=== PATIENT | male | born 1935 | race Caucasian/White ===

== ENCOUNTER 2020-03-25 00:50 | Outpatient (CLI) | payer MEDICARE, SELFPAY ==
[2020-03-25 18:12] LABS: SARS-CoV-2 RNA PCR Negative
== END 2020-03-25 00:51 | disposition home or self-care (01) ==
LOC: ANHCOVIDDT 00:51
PROVIDERS: PCP Internal Medicine; Visit Provider Internal Medicine Gastroenterology
DX: Z01.812 Encounter for preprocedural laboratory examination (principal); Z20.828 Contact with and (suspected) exposure to other viral communicable diseases
CPT/HCPCS: 87635; C9803; U0003

== ENCOUNTER 2020-03-27 02:25 | Day surgery (SDC) | payer MEDICARE, SELFPAY ==
[2020-03-21 13:10] VITALS: BMI 42.7
[2020-03-27 07:55] VITALS: BP 136/68; PULSE 79; RESP 18; TEMP 36.3; O2SAT 99; BMI 42.7
[2020-03-27] MEDS: LACTATED RINGERS 1,000 ML 150 ML IV CONT (08:10)
--- NOTE | 2020-03-27 08:16 | WPDANESEPPF ---
Anes - Initial Pre Proc Eval Procedure: Operation Date: 03/27/20 08:30 Proposed Procedures p Colonoscopy - Kenn Burr MD Date/Time: 03/27/20 08:16 Surgeon: Kenn Burr MD Pre Op Diagnosis: ulcerative colitis, change in bowel habits Patient Data Age: 84 Gender: M Height: 1.78 m Weight: 135 kg Last Vital Signs Temp 36.3 C L 03/27/20 07:55 Pulse 79 03/27/20 07:55 Resp 18 03/27/20 07:55 BP 136/68 03/27/20 07:55 Pulse Ox 99 03/27/20 07:55 Allergies Allergy/AdvReac Type Severity Reaction Status Date / Time cephalexin Allergy Unknown Unknown Verified 03/27/20 07:51 Penicillins Allergy Unknown When he Verified 03/27/20 07:51 was younger. CEPHALEXIN MONOHYDRATE AdvReac Mild RASH Uncoded 03/27/20 07:51 Home Medications Medication Instructions Recorded Confirmed Type losartan 100 mg tablet 100 mg PO DAILY #90 tablet 07/03/19 03/27/20 Rx ascorbate calcium (vitamin C) 500 500 mg PO DAILY 07/27/19 03/27/20 History mg tablet cyanocobalamin (vitamin B-12) 500 500 mcg PO DAILY 07/27/19 03/27/20 History mcg lozenges multivitamin 1 tablet PO DAILY 07/27/19 03/27/20 History naproxen sodium 220 mg capsule 220 mg PO BID PRN 07/27/19 03/27/20 History dabigatran etexilate 150 mg capsule 150 mg PO BID #60 cap 10/18/19 03/27/20 Rx levothyroxine 112 mcg tablet 112 mcg PO DAILY #90 tablet 01/02/20 03/27/20 Rx atorvastatin 40 mg tablet See Rx Instructions .ROUTE 01/04/20 03/27/20 Rx .COMPLEX #90 tablet glipizide 5 mg tablet 5 mg PO DAILY #30 tablet 01/30/20 03/27/20 Rx metformin 1,000 mg tablet 1,000 mg PO BID #60 tablet 01/30/20 03/27/20 Rx sitagliptin-metformin [Janumet XR] 1 tablet PO DAILY 03/21/20 03/27/20 History sulfasalazine 1.5 g PO BID 03/21/20 03/27/20 History Patient hx anesthesia problems: none Family hx anesthesia problems: none [facility] Past Medical History Medical History (Updated 02/29/20 @ 14:30 by Carroll Wood APRN) [place] (actinic keratosis) Chronic atrial fibrillation, unspecified 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 Epistaxis, recurrent Essential hypertension 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 History of ulcerative colitis Hx of deep venous thrombosis Hypercholesteremia Hypersomnolence disorder, acute Hypothyroidism, unspecified IBD (inflammatory bowel disease) Lymphedema Mixed hyperlipidemia Morbid obesity On anticoagulant therapy 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 ALLEN (obstructive sleep apnea) Paroxysmal atrial fibrillation with rapid ventricular response Postoperative wound dehiscence Pyogenic granuloma Skin cancer screening Skin neoplasm Smoking Thoracic aortic aneurysm without rupture Type 2 diabetes mellitus without complication Ulcerative colitis with complication Ulcerative colitis without complications Urinary incontinence Surgical History Surgical History History of hip replacement History of repair of rotator cuff Social History Social History Smoking packs per day: 0.5 Smoking cigarettes per day: 10.0 Smoking status: Current every day smoker Tobacco type: cigarettes Alcohol intake: current Drinks per week: 3 Living arrangements: with family Spiritual care concerns: No Anes - Eval Final PreProcedure Day of Procedure 03/27/20 08:16 Patient weight: morbidly obese Heart: regular rate and rhythm Lungs: clear to auscultation and normal air movement Airway: Mallampati scale class III Neurological: alert and oriented Last oral intake: >/= 8 hours ASA classification: III Emergent: no Anesthetic plan: proceed Anesthesia type and monitoring: general GIVS and standard monitoring Informed Consent: The patient's anesthetic plan and its attendant risks and benefits were discussed with the patient/family/POA. Questions were solicited and answers provided to the satisfaction of the patient/family/POA.
[2020-03-27 08:19] LABS: Glucose Point of Care 153 (65-105)
--- NOTE | 2020-03-27 08:34 | WPDGICN ---
Assessment and Plan Assessment and plan (1) Ulcerative colitis: Code(s): K51.90 - Ulcerative colitis, unspecified, without complications Status: Acute Assessment and Plan: Patient has a longstanding history of ulcerative colitis. Stable on sulfasalazine. Plan is for surveillance colonoscopy now and consider this at intervals in the future. (2) History of colon polyps: Code(s): Z86.010 - Personal history of colonic polyps Status: Acute Assessment and Plan: Patient has a history of colon polyps most recently 2011. This will be evaluated by colonoscopy at this time. 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 Is taken because of his atrial fibrillation. Recent rectal bleeding was identified. Source of this will be evaluated at the time ofl colonoscopy. 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 Patient presents for colonoscopy. Patient has a long history of ulcerative colitis. [place] to be in clinical remission. He has an underlying history of atrial fibrillation on Eliquis. He has a history of adenomatous colon polyp removed from the colon in 2011. Recently has had difficulty with constipation and passed a small amount of bright red blood per rectum. For these reasons he presents for screening colonoscopy. High-fiber diet with laxatives as needed have been recommended. Family history is noncontributory. Patient has recent past medical history is significant for [place] cell cancer resected from his right arm. Pradaxa taken for atrial fibrillation will be held prior to the colonoscopy. 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 History of ulcerative colitis Hx of deep venous thrombosis Hypercholesteremia Hypersomnolence disorder, acute Hypothyroidism, unspecified IBD (inflammatory bowel disease) Lymphedema Mixed hyperlipidemia Morbid obesity On anticoagulant therapy On intermediate drug therapy ALLEN (obstructive sleep apnea) Paroxysmal atrial fibrillation with rapid ventricular response Postoperative wound dehiscence Pyogenic granuloma Skin cancer screening Skin neoplasm Smoking Thoracic aortic aneurysm without rupture Type 2 diabetes mellitus without complication Ulcerative colitis with complication Ulcerative colitis without complications Urinary incontinence Surgical History Surgical History History of hip replacement History of repair of rotator cuff Social History Social History Smoking packs per day: 0.5 Smoking cigarettes per day: 10.0 Smoking status: Current every day smoker Tobacco type: cigarettes Alcohol intake: current Drinks per week: 3 Living arrangements: with family Spiritual care concerns: No Meds Home Medications and Allergies Home Medications Medication Instructions Recorded Confirmed Type losartan 100 mg tablet 100 mg PO DAILY #90 tablet 07/03/19 03/27/20 Rx ascorbate calcium (vitamin C) 500 500 mg PO DAILY 07/27/19 03/27/20 History mg table
[2020-03-27 09:08] VITALS: BP 112/62; PULSE 69; RESP 18; O2SAT 96
[2020-03-27 09:18] VITALS: BP 126/63; PULSE 73; RESP 17; O2SAT 100
[2020-03-27 09:28] VITALS: BP 129/69; PULSE 68; RESP 17; O2SAT 100
== END 2020-03-27 09:51 | disposition home or self-care (01) ==
PROVIDERS: PCP Internal Medicine; Visit Provider Internal Medicine Gastroenterology
PROC: 0DJD8ZZ Inspection of Lower Intestinal Tract, Via Natural or Artificial Opening Endoscopic (ICD-10-PCS; CPT 45378; principal; 2020-03-27 08:30)
DX: Z12.11 Encounter for screening for malignant neoplasm of colon (principal); K51.90 Ulcerative colitis, unspecified, without complications; I48.20 Chronic atrial fibrillation, unspecified; L57.0 Actinic keratosis; I10 Essential (primary) hypertension; E78.00 Pure hypercholesterolemia, unspecified; E03.9 Hypothyroidism, unspecified; E78.2 Mixed hyperlipidemia; E66.01 Morbid (severe) obesity due to excess calories; Z68.41 Body mass index [BMI] 40.0-44.9, adult; G47.33 Obstructive sleep apnea (adult) (pediatric); F17.210 Nicotine dependence, cigarettes, uncomplicated; I71.2 Thoracic aortic aneurysm, without rupture; E11.9 Type 2 diabetes mellitus without complications; R32 Unspecified urinary incontinence; K51.40 Inflammatory polyps of colon without complications; K64.8 Other hemorrhoids; Z79.899 Other long term (current) drug therapy; Z79.01 Long term (current) use of anticoagulants; Z86.010 Personal history of colon polyps; Z85.821 Personal history of Merkel cell carcinoma
CPT/HCPCS: 45385; 45380; 88305; J2704; J7120

== ENCOUNTER 2020-09-16 08:30 | Inpatient (IN) | payer MEDICARE, SELFPAY ==
[2020-09-16] VITALS (46 sets, daily range): BP systolic 107–149; BP diastolic 45–97; PULSE 66–102; RESP 10–21; TEMP 35.8–37.3; O2SAT 93–100; BMI 39.5
--- NOTE | ~2020-09-16 | US_ITS ---
US abdomen limited INDICATION: Elevated liver function tests PROCEDURE: Realtime right upper abdominal ultrasound. COMPARISON: Pet/CT scan dated 08/16/2018 FINDINGS: The pancreas is normal without focal mass or pancreatic ductal dilation. Liver echotexture is increased, consistent with hepatic steatosis. There is normal directional flow in the portal vei n. The gallbladder is normal without stones, gallbladder wall thickening or pericholecystic fluid. Comm on bile duct measures 4 mm. No sonographic Arguelles's sign. IMPRESSION: 1: Hepatic steatosis. Reviewed, dictated and finalized at location B. IMPRESSION: 1: Hepatic steatosis.
--- NOTE | ~2020-09-16 | XR_ITS ---
XR chest 2V 09/16/2020 09:15 Indication: Shortness of breath Procedure: 2 view chest Comparison: No prior studies for comparison. Findings: Heart size normal. Bibasilar infiltrates. No pleural effusion or pneumothorax. No acute oss eous abnormality. Mild atherosclerosis of the aorta. Impression: 1: Bibasilar infiltrates which may represent atelectasis or developing pneumonia. Reviewed, dictated and finalized at location B. Impression: 1: Bibasilar infiltrates which may represent atelectasis or developing pneumoni a.
--- NOTE | 2020-09-16 08:43 | ECG_ITS ---
Measurements Intervals [place] Rate: 86 P: OR: 0 QRS: 59 QRSD: 111 T: -15 QT: 355 QTc: 426 Interpretive Statements ATRIAL FIBRILLATION INCOMPLETE RIGHT BUNDLE BRANCH BLOCK NONSPECIFIC ST & T-WAVE ABNORMALITY- DIFFUSE LEADS BASELINE ARTIFACT- I, V4-V5 ABNORMAL ECG Electronically Signed On 09-16-2020 9:08:11 CDT by Mc Atkinson D.O.
[2020-09-16 09:01] LABS: Basophils Percent Auto 0.5 % (0.2-1.2); Eosinophils Percent Auto 0.4 % (0-4.4); Immature Granulocyte Percent A 1.2 % (0-0.5); Lymphocytes Percent Auto 11.7 % (18.3-44.2); Mean Corpuscular HGB Conc 29.2 g/dl (32-36); Mean Corpuscular Hemoglobin 20.4 pg (26-34); Mean Corpuscular Volume 69.7 fl (80-100); Mean Platelet Volume 9.4 fl (7.4-10.4); Monocytes Absolute Auto 1.1 K/mm3 (0.1-0.6); Monocytes Percent Auto 12.4 % (2.6-8.5); Neutrophils Absolute Auto 6.3 K/mm3 (1.3-6.7); Neutrophils Percent Auto 73.8 % (45.5-73.1); Nucleated Red Blood Cells Perc 0.5 % (0.0-0.2); Platelet Count Result 307 k/mm3 (150-375); Red Blood Count 2.21 M/mm3 (4.6-6.20); Red Cell Distribution Width 17.3 % (11.5-14.5); White Blood Count 8.6 K/mm3 (4.5-10.0)
[2020-09-16 09:09] LABS: Hemoglobin 4.5 g/dL (14.0-18.0)
[2020-09-16 09:10] LABS: Hematocrit 15.4 % (42.0-52.0); Hypochromasia 3+ (NORMAL); Ovalocytes 1+ (NORMAL); Platelet Estimate Adequate (Adequate)
[2020-09-16 09:12] LABS: Potassium 3.9 mmol/L (3.4-5.0)
[2020-09-16 09:15] LABS: Anion Gap 9 mmol/L (8-16); Blood Urea Nitrogen 21 mg/dL (9-20); Calcium 7.9 mg/dL (8.4-10.2); Carbon Dioxide 21 mmol/L (22-30); Chloride 98 mmol/L (98-107); Estimated CRCL calculation 66 ml/min; Estimated Glomerular Filt Rate > 60; Glucose 207 mg/dL (75-110); Sodium 128 mmol/L (137-145)
[2020-09-16 09:27] LABS: Alanine Aminotransferase 54 U/L (4-50); Albumin Level 3.5 g/dL (3.5-5.1); Alkaline Phosphatase 72 U/L (38-126); Aspartate Amino Transferase 87 U/L (17-59); Bilirubin,Total 0.3 mg/dL (0.2-1.3)
[2020-09-16 09:39] LABS: NT Pro B Type Natriuretic Pept 1390 PG/ML (5-100); Troponin I 0.021 ng/mL (0.000-0.034)
--- NOTE | 2020-09-16 10:53 | ED.SOB ---
HPI - SOB/Dyspnea General Chief Complaint: Shortness of Breath/Dyspnea Stated Complaint: SOB X2WKS Time Seen by Provider: 09/16/20 08:54 Source: patient Mode of arrival: ambulatory Limitations: no limitations History of Present Illness HPI Narrative: 85-year-old male Complains of increasing shortness of breath for a month or so which has been getting a lot worse for the last 2 weeks Primarily an issue with exertion but also while at rest He saw his doctor about 2-1/2 weeks ago and had some office labs done which all looked fairly good per the patient; it does not look like a CBC was among them though Notably patient has a history of atrial fibrillation and takes Pradaxa for that. Unfortunately he also has a history of ulcerative colitis. He denies any history of melena, however when asked he does think that he may have had some rust colored possibly bloody stools. He does not have any abdominal pain. Related Data Home Medications Medication Instructions Recorded Confirmed ascorbate calcium (vitamin C) 500 500 mg PO DAILY 07/27/19 09/09/20 mg tablet cyanocobalamin (vitamin B-12) 500 500 mcg PO DAILY 07/27/19 09/09/20 mcg lozenges multivitamin 1 tablet PO DAILY 07/27/19 09/09/20 naproxen sodium 220 mg capsule 220 mg PO BID PRN 07/27/19 09/09/20 sitagliptin-metformin [Janumet XR] 1 tablet PO DAILY 03/21/20 09/09/20 magnesium-potassium 40 mg-40 mg cap PO 07/02/20 09/09/20 capsule furosemide 40 mg tablet 20 mg PO QAM 09/09/20 09/09/20 atorvastatin 09/16/20 potassium chloride meq PO 09/16/20 Allergies Allergy/AdvReac Type Severity Reaction Status Date / Time cephalexin Allergy Unknown rash Verified 09/16/20 08:52 Penicillins Allergy Unknown When he Verified 09/16/20 08:52 was younger. Review of Systems Review of Systems: All systems reviewed & are unremarkable except as noted in HPI and below Constitutional: Constitutional: Denies chills, Reports fatigue, Denies fever(s), Denies headache(s) and Reports weakness Eyes: Eyes: Reports no additional eye complaints and Denies change in vision ENT: Denies headache(s), Denies epistaxis, Denies nasal congestion and Denies sore throat Cardiovascular: Cardiovascular: Denies chest pain, Denies rapid heart rate, Denies leg edema, Denies palpitations and Denies dyspnea Respiratory: Respiratory: Reports as per HPI, Denies cough, Denies dyspnea and Denies wheezing Gastrointestinal: Gastrointestinal: Denies abdominal pain, Denies diarrhea, Denies nausea and Denies vomiting Comments: Positive for blood in stool Genitourinary: Genitourinary: Denies hematuria, Denies dysuria and Denies urinary frequency Musculoskeletal: Musculoskeletal: Denies deformity, Denies arthralgias, Reports joint swelling, Denies muscle weakness and Denies numbness Comments: Chronic edema longstanding Integumentary/Breasts: Skin/Breast: Denies rash and Denies wounds Neurologic: Denies headache(s), Denies focal weakness, Denies numbness and Denies weakness Psychiatric: Psychiatric: Reports no additional psychiatric complaints Endocrine: Endocrine: Denies fatigue and Denies palpitations Hematologic/Lymphatic: Hematologic/Lymphatic: Denies easy bleeding and Denies easy bruising [facility] Past Medical History Medical History [place] (actinic keratosis) Chronic atrial fibrillation, unspecified 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
[2020-09-16] MEDS: SODIUM CHLORIDE 0.9% IV 250 ML 30 ML IV CONT ×2 (11:25→19:07)
[2020-09-16] MEDS: TUBING, BLOOD PLUM PUMP TUBING 1 EACH XX ×2 (11:25→19:08)
--- NOTE | 2020-09-16 11:27 | PC.NURSE ---
prbc unit # 1 started via pump at 1125
[2020-09-16 11:41] LABS: Hematocrit 14.8 % (42.0-52.0); Hemoglobin 4.4 g/dL (14.0-18.0)
--- NOTE | 2020-09-16 13:09 | ADMGEN ---
This patient, Kole Méndez, was admitted to 3 [facility] Surg Room 331-01. Patient/family oriented to hospital policies and general routines including ID bracelet, bed and alarms, visiting hours, pain management, procedures, bathroom and other care routines, personal items, smoking policy, room service/diet, and visiting hours. Information on how to activate the Rapid Response Team has been discussed. Patient/Family are encouraged to report perceived risks to care and to ask questions if they do not understand what they are told or what they should do.
--- NOTE | 2020-09-16 14:14 | PM.IMHP ---
H&P: HPI History of Present Illness Date/Time: 09/16/20 14:14 this is a 85-year-old male patient has a past medical history. Small atrial fibrillation. The patient is on Pradaxa. The patient also has a history of congestive heart failure. The patient stated that he does have swelling to his lower extremities but is not any worse than normal. Room with her in a month or so. But has been getting the worse the last 2 weeks. The patient has been walking with a cane. His shortness of breath is with exertion as well as at rest. The patient stated that he noted that he has had darker stools but they were exactly black. The patient stated that he followed up with his primary care doctor about 2 and half weeks ago. He has a history of ulcerative colitis. The patient stated that he sees Dr. greenfield for all of his colonoscopies. The patient stated that he had a colonoscopy approximately 1 year ago and was found have some polyps. He had a polypectomy at that time. Who is also told that he had some internal hemorrhoids as wall that tended bleed at times. Performed a nasal his primary care doctor couple weeks ago. Your not in her system but the patient reported that they were okay at that time. Today's hemoglobin is 4.4. Patient's Hemoccult was positive in the emergency room. GI has been consulted. The patient is tolerating his clear liquid diet well. May represent atelectasis or developing pneumonia. Patient has no fever chills. He has not had any contacts with covid 19 infection. The patient was swabbed for COVID-19. The patient is receiving a blood transfusion at this time. H&H is 4.4 and 14.8, the patient was admitted to inpatient on the date of service of 09/17/2019 Chief Complaint: Shortness of breath Review of Systems Review of Systems: All systems reviewed & are unremarkable except as noted in HPI and below Constitutional: Constitutional: Reports as per HPI and Reports no additional constitutional complaints Eyes: Eyes: Reports as per HPI and Reports no additional eye complaints ENT: Reports system reviewed and no additional complaints, except as documented and Reports Normal hearing present Cardiovascular: Cardiovascular: Reports no additional cardiovascular complaints Respiratory: Respiratory: Reports no additional respiratory complaints and Reports no additional respiratory complaints Gastrointestinal: Gastrointestinal: Reports as per HPI and Reports no additional gastrointestinal complaints Musculoskeletal: Musculoskeletal: Reports no additional musculoskeletal complaints Integumentary/Breasts: Skin/Breast: Reports system reviewed and no additional complaints, except as docu and Reports as per HPI Neurologic: Reports system reviewed and no additional complaints, except as documented, Reports as per HPI and Reports Normal hearing present Psychiatric: Psychiatric: Reports no additional psychiatric complaints and Reports as per HPI Endocrine: Endocrine: Reports no additional endocrine complaints Hematologic/Lymphatic: Hematologic/Lymphatic: Reports no additional hematologic/lymphatic complaints Allergic/Immunologic: Allergic/Immunologic: Reports no additional allergic/immunologic complaints [facility] Past Medical History Medical History (Updated 09/16/20 @ 14:32 by Reema Mayorga NP) AK (actinic keratosis) Chronic atrial fibrillation, unspecified 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
[2020-09-16] MEDS: PANTOPRAZOLE SODIUM IV 40 MG VIAL IV PUSH ×2 (15:10→23:38)
[2020-09-16] MEDS: SODIUM CHLORIDE 0.9% IV 1,000 ML 125 ML IV CONT (17:25)
[2020-09-16 17:42] LABS: Glucose Point of Care 170 (65-105)
--- NOTE | 2020-09-16 18:00 | WPDGICN ---
Assessment and Plan Assessment and plan (1) GI bleed: Code(s): K92.2 - Gastrointestinal hemorrhage, unspecified Status: Acute Assessment and Plan: admitted to hospital, he is getting blood transfusion egd and colonoscopy tomorrow to assess source of bleeding (colonoscopy last year with normal random colon bx, also had inflammatory polyps due to UC) (2) Acute blood loss anemia: Code(s): D62 - Acute posthemorrhagic anemia Status: Acute Assessment and Plan: getting blood transfusion trend h/h and hold blood thinners (3) Ulcerative colitis: Code(s): K51.90 - Ulcerative colitis, unspecified, without complications Status: Acute Assessment and Plan: on sulfasalazine, on remission but longstanding history he is seeing Dr Burr (4) Edema of both legs: Code(s): R60.0 - Localized edema Status: Acute Assessment and Plan: chronic (5) On anticoagulant therapy: Code(s): Z79.01 - custodial (current) use of anticoagulants Status: Acute Assessment and Plan: on hold now (6) Chronic atrial fibrillation, unspecified: Code(s): I48.20 - Chronic atrial fibrillation, unspecified Status: Acute GI Consult Note Consult date/time: 09/16/20 18:00 Reason for consult: gib, symptomatic anemia HPI: Kole Méndez is a 85 year old male with history of DVT, afib on Pradaxa for a few years, congestive heart failure, UC for over [address] Burr with last colonoscopy 03/2020 with inflammatory polyps but random colon mucosa normal (on remission), patient is using sulfasalazine, never used biologics. He says that lately has been constipated using miralax and last 3 weeks noted blood in stools with dark appearance, also more shortness of breath than usual on exertion but at rest as well as at rest. CXR showed atelectasis or developing pneumonia, no fever chills, he was swabbed for COVID-19 (already received first dose of vaccine) and now is receiving a blood transfusion at this time. H&H is 4.4 and 14.8. Review of Systems Constitutional: Constitutional: Reports fatigue Eyes: Eyes: Denies blurry vision ENT: Reports Normal hearing present Cardiovascular: Cardiovascular: Denies chest pain Respiratory: Respiratory: Reports dyspnea on exertion Gastrointestinal: Gastrointestinal: Denies abdominal pain, Reports melena and Reports hematochezia Genitourinary: Genitourinary: Denies dysuria Musculoskeletal: Musculoskeletal: Denies neck pain Integumentary/Breasts: Comments: chronic venous stasis legs Neurologic: Denies headache(s) Psychiatric: Psychiatric: Denies anxiety [facility] Past Medical History Medical History (Updated 09/16/20 @ 18:06 by Devyn Mahoney MD) Acute blood loss anemia [place] (actinic keratosis) Chronic atrial fibrillation, unspecified 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 Epistaxis, recurrent Essential hypertension 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 History of ulcerative colitis Hx of deep venous thrombosis Hypercholesteremia Hypersomnolence disorder, acute Hypothyroidism, unspecified IBD (inflammatory bowel disease) Lymphedema Mixed hyperlipidemia Morbid obesity On anticoagulant therapy On halfway drug therapy ALLEN (obstructive sleep apnea) Intolerant to CPAP Paroxysmal atrial fibrillation with rapid ventricular response Postoperative wound dehiscence Pyogenic granuloma Skin cancer screening Skin neoplasm Smoking Thoracic aortic aneurysm without rupture Type 2 diabetes mellitus without complication Ulcerative colitis with complication Ulcerative colitis without complications Urinary incontinence Surgical History Surgical History (Updated 09/16/20 @ 14:36 by Reema Mayorga NP) H/O colonoscopy with polypectomy History of hip replacement On the right History of repair of rotator cuff On the left Family History Family History (Reviewed 09/16/20 @ 13:11 by Lexis
[2020-09-16 18:04] LABS: Hematocrit 19.2 % (42.0-52.0)
[2020-09-16] MEDS: sulfaSALAzine 500 MG TABLET 1500 MG PO (19:07)
[2020-09-16] MEDS: polyethylene glycoL 3350 238 GM BOTTLE PO (19:08)
[2020-09-16] MEDS: BISACODYL 5 MG TABLET EC 20 MG PO (19:08)
[2020-09-16 20:04] LABS: Glucose Point of Care 127 (65-105)
[2020-09-16 20:13] LABS: SARS-CoV-2 RNA PCR Negative
[2020-09-16] MEDS: ONDANSETRON INJ 4 MG/2 ML VIAL IV PUSH (20:19)
[2020-09-16] MEDS: MELATONIN 5 MG TABLET PO (21:40)
[2020-09-16 21:59] LABS: Glucose Point of Care 162 (65-105)
[2020-09-17] VITALS (16 sets, daily range): BP systolic 107–147; BP diastolic 56–93; PULSE 53–83; RESP 16–20; TEMP 35.9–37.1; O2SAT 94–100; BMI 39.5
[2020-09-17 00:51] LABS: Hematocrit 21.8 % (42.0-52.0); Hemoglobin 7.1 g/dL (14.0-18.0)
[2020-09-17] MEDS: MAGNESIUM CITRATE 300 ML BTL 150 ML PO (04:32)
[2020-09-17 06:05] LABS: Basophils Absolute Auto 0.1 K/mm3 (0.0-0.1); Basophils Percent Auto 0.7 % (0.2-1.2); Eosinophils Absolute Auto 0.1 K/mm3 (0-0.3); Hematocrit 22.5 % (42.0-52.0); Hemoglobin 7.1 g/dL (14.0-18.0); Immature Granulocyte Percent A 1.4 % (0-0.5); Lymphocytes Absolute Auto 0.74 K/mm3 (0.9-3.2); Lymphocytes Percent Auto 10.3 % (18.3-44.2); Mean Corpuscular HGB Conc 31.6 g/dl (32-36); Mean Corpuscular Hemoglobin 23.5 pg (26-34); Mean Corpuscular Volume 74.5 fl (80-100); Monocytes Absolute Auto 0.8 K/mm3 (0.1-0.6); Monocytes Percent Auto 11.7 % (2.6-8.5); Neutrophils Absolute Auto 5.4 K/mm3 (1.3-6.7); Neutrophils Percent Auto 74.9 % (45.5-73.1); Nucleated Red Blood Cells Absolute Auto 0.1 K/mm3 (0.0-0.012); Nucleated Red Blood Cells Perc 0.7 % (0.0-0.2); Platelet Count Result 201 k/mm3 (150-375); Red Blood Count 3.02 M/mm3 (4.6-6.20); Red Cell Distribution Width 19.1 % (11.5-14.5); White Blood Count 7.2 K/mm3 (4.5-10.0)
[2020-09-17] MEDS: SODIUM CHLORIDE 0.9% IV 1,000 ML 125 ML IV CONT ×2 (06:15→20:45)
[2020-09-17 06:19] LABS: Alanine Aminotransferase 55 U/L (4-50); Alkaline Phosphatase 59 U/L (38-126); Anion Gap 4 mmol/L (8-16); Aspartate Amino Transferase 89 U/L (17-59); Bilirubin,Total 0.5 mg/dL (0.2-1.3); Blood Urea Nitrogen 14 mg/dL (9-20); Calcium 7.3 mg/dL (8.4-10.2); Carbon Dioxide 23 mmol/L (22-30); Chloride 103 mmol/L (98-107); Estimated CRCL calculation 81 ml/min; Estimated Glomerular Filt Rate > 60; Glucose 112 mg/dL (75-110); Magnesium 1.5 mg/dL (1.6-2.3); Potassium 3.8 mmol/L (3.4-5.0); Sodium 130 mmol/L (137-145)
[2020-09-17] MEDS: MAGNESIUM SULF 2 GM/WATER 50ML 2 GM/50 ML BAG IVPB (08:08)
[2020-09-17] MEDS: PANTOPRAZOLE SODIUM IV 40 MG VIAL IV PUSH ×2 (08:08→20:43)
[2020-09-17 08:31] LABS: Glucose Point of Care 128 (65-105)
--- NOTE | 2020-09-17 10:56 | PM.IMPN ---
Progress Note: A&P Assessment and Plan (1) Acute lower gastrointestinal bleeding: Code(s): K92.2 - Gastrointestinal hemorrhage, unspecified Status: Acute Assessment and Plan: Pt has received 5 units of blood thus far in total -hgb this morning was 7.1 and one additional unit was ordered -No signs or symptoms of blood loss -suspect GI source, await results of colonscopy and egd -no anemia labs were done prior to the 5 units, may not be accurate now (2) Edema of both legs: Code(s): R60.0 - Localized edema Status: Acute Assessment and Plan: Chronic and unchanged -monitor (3) Ulcerative colitis: Code(s): K51.90 - Ulcerative colitis, unspecified, without complications Status: Acute Assessment and Plan: Hx of UC -GI consulted (4) Tobacco abuse: Code(s): Z72.0 - Tobacco use Status: Acute (5) Mixed hyperlipidemia: Code(s): E78.2 - Mixed hyperlipidemia Status: Acute Assessment and Plan: Continue with atorvastatin (6) ALLEN (obstructive sleep apnea): Code(s): G47.33 - Obstructive sleep apnea (adult) (pediatric) Status: Acute Assessment and Plan: The patient is intolerant of CPAP (7) Essential hypertension: Code(s): I10 - Essential (primary) hypertension Status: Acute Assessment and Plan: Continue with home medication. (8) Chronic atrial fibrillation, unspecified: Code(s): I48.20 - Chronic atrial fibrillation, unspecified Status: Acute Assessment and Plan: Last heart rate 59 -I do not see any rate-controlling medications -Hold Pradaxa secondary to above (9) Type 2 diabetes mellitus without complication: Qualifiers: Diabetes mellitus snf insulin use: without snf use Qualified Code(s): E11.9 - Type 2 diabetes mellitus without complications Code(s): E11.9 - Type 2 diabetes mellitus without complications Status: Acute Assessment and Plan: Last glucose 128 -A1c, 7.4 -hold home Janumet -Continue SSI (10) Acute blood loss anemia: Code(s): D62 - Acute posthemorrhagic anemia Status: Acute Assessment and Plan: As above Additional Plan Pt states he has had lump on his right arm for about 5 days that is painful at times. 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 He is going to follow up with his pcp to get this imagined if it does not go away in a few weeks. At that time they can decide if it needs to be removed Time Spent With Patient Time with patient: 25 - 35 minutes Subjective Date/time seen: 09/17/20 10:56 Interval history: Pt is a 85-year-old male here for anemia. Patient was seen today and states he is feeling better than yesterday. He reports no shortness of breath at rest but does feel short of breath when he is up and walking. He has not walked much since he has been in the hospital. Is he did not sleep well yesterday but overall doing okay. He denies lightheadedness, dizziness, chest pain, shortness of breath at rest, fevers, or cough. He states he is unsure what his usual heart rate is. Now or in the past. No history of liver issues. Review of Systems Review of Systems: All systems reviewed & are unremarkable except as noted in HPI and below Exam Narrative: Exam Narrative: General: Well developed well nourished patient in NAD HEENT: normocephalic Neck: supple Neuro: Alert and oriented x4 CV:Bradycardic without murmurs. HR currently 57 but did drop to 47 on tele. occasional PVCs Resp:CTA Abd: Soft, non distended. No pain to palpation. Positive bowel sounds Extremities: chronic venous stasis in both legs. right arm with a small lipoma like nodule no erythema. Objective Data Vital Signs Vital Signs: Vital Signs - 24 hr 09/16/20 11:00 09/16/20 11:01 09/16/20 11:15 Temperature Pulse Rate 73 73 73 Respirat
[2020-09-17 11:35] LABS: Glucose Point of Care 134 (65-105)
--- NOTE | 2020-09-17 12:55 | PCNSR ---
On 09/17/20, the student, Raegan Owens, provided care and completed [facility] documentation on this patient. I have reviewed the student's documentation and agree with the findings.
--- NOTE | 2020-09-17 13:30 | PC.NURSE ---
Patient to GI lab per wheelchair.
[2020-09-17 13:48] LABS: Glucose Point of Care 118 (65-105)
--- NOTE | 2020-09-17 13:50 | WPDANESEPPF ---
Anes - Initial Pre Proc Eval Procedure: Operation Date: 09/17/20 15:30 Proposed Procedures p Esophagogastroduodenoscopy & Colonoscopy - Devyn Mahoney MD Date/Time: 09/17/20 13:50 Surgeon: Olivia Garcia MD Pre Op Diagnosis: Lower GI bleed/anemia Patient Data Age: 85 Gender: M Height: 5 ft 10 in Weight: 125 kg Last Vital Signs vitals incorrect resp 16,sat98,pulse 73 Temp 36.6 C 09/17/20 13:18 Pulse 16 L 09/17/20 13:18 Resp 98 H 09/17/20 13:18 BP 117/70 09/17/20 13:18 Pulse Ox 73 L 09/17/20 13:18 Allergies Allergy/AdvReac Type Severity Reaction Status Date / Time cephalexin Allergy Unknown rash Verified 09/16/20 13:22 Penicillins Allergy Unknown When he Verified 09/16/20 13:22 was younger. Home Medications Medication Instructions Recorded Confirmed Type ascorbate calcium (vitamin C) 500 500 mg PO DAILY 07/27/19 09/16/20 History mg tablet cyanocobalamin (vitamin B-12) 500 500 mcg PO DAILY 07/27/19 09/16/20 History mcg lozenges multivitamin 1 tablet PO DAILY 07/27/19 09/16/20 History naproxen sodium 220 mg capsule 220 mg PO BID PRN 07/27/19 09/16/20 History sitagliptin-metformin [Janumet XR] 1 tablet PO DAILY 03/21/20 09/16/20 History dabigatran etexilate 150 mg capsule 150 mg PO BID #60 cap 04/08/20 09/16/20 Rx losartan 100 mg tablet 100 mg PO DAILY #90 tablet 04/08/20 09/16/20 Rx levothyroxine 112 mcg tablet See Rx Instructions .ROUTE 07/01/20 09/16/20 Rx .COMPLEX #90 tablet furosemide 40 mg tablet 40 mg PO QAM 09/09/20 09/16/20 History atorvastatin 40 mg PO DAILY 09/16/20 09/16/20 History potassium 40 meq PO DAILY 09/16/20 09/16/20 History sulfasalazine 1.5 g PO BID 09/16/20 09/16/20 History Laboratory Tests 09/16/20 09/16/20 09/16/20 09:38 11:09 11:32 WBC RBC Hgb Hct MCV MCH MCHC RDW Plt Count MPV Immature Gran % (Auto) Neut % (Auto) Lymph % (Auto) Ballard % (Auto) Eos % (Auto) Baso % (Auto) Lymph # (Auto) Ballard # (Auto) Eos # (Auto) Baso # (Auto) Abs Immat Gran (auto) Absolute Neuts (auto) Absolute Nucleated RBC Nucleated RBC % Sodium Potassium Chloride Carbon Dioxide Anion Gap BUN Creatinine Estim Creat Clear Calc Estimated GFR Glucose POC Capillary Glucose Hemoglobin A1c Cancelled Calcium Magnesium Total Bilirubin AST ALT Alkaline Phosphatase Total Protein Albumin TSH (Reflex) SARS-CoV-2 RNA (RT-PCR) Negative Ref Lab Test Name Ref Lab Test Result Blood Type O Positive Antibody Screen Negative Crossmatch See Detail 09/16/20 09/16/20 09/16/20 11:32 12:58 17:28 WBC RBC Hgb Hct MCV MCH MCHC RDW Plt Count MPV Immature Gran % (Auto) Neut % (Auto) Lymph % (Auto) Ballard % (Auto) Eos % (Auto) Baso % (Auto) Lymph # (Auto) Ballard # (Auto) Eos # (Auto) Baso # (Auto) Abs Immat Gran (auto) Absolute Neuts (auto) Absolute Nucleated RBC Nucleated RBC % Sodium Potassium Chloride Carbon Dioxide Anion Gap BUN Creatinine Estim Creat Clear Calc Estimat
[2020-09-17] MEDS: LACTATED RINGERS 1,000 ML 150 ML IV CONT (13:58)
--- NOTE | 2020-09-17 14:16 | PCPTNOTE ---
Attempted PT eval. Pt gone to GI lab. Will try again tomorrow.
--- NOTE | 2020-09-17 15:22 | PC.NURSE ---
Patient returned from GI lab per stretcher.
[2020-09-17] MEDS: ASCORBIC ACID 500 MG TABLET PO (15:34)
[2020-09-17] MEDS: ATORVASTATIN 40 MG TABLET PO (15:34)
[2020-09-17] MEDS: MULTIVITAMINS THERAPEUTIC TAB (*BKC) 1 TABLET PO (15:34)
[2020-09-17] MEDS: LOSARTAN POTASSIUM 100 MG TABLET PO (15:34)
[2020-09-17] MEDS: POTASSIUM CHLORIDE 20 MEQ TABLET 40 MEQ PO (15:34)
[2020-09-17] MEDS: CYANOCOBALAMIN 500 MCG TABLET PO (15:35)
[2020-09-17] MEDS: FUROSEMIDE 40 MG TABLET PO (15:35)
[2020-09-17 15:55] LABS: Hematocrit 28.9 % (42.0-52.0)
[2020-09-17] MEDS: sulfaSALAzine 500 MG TABLET 1500 MG PO (16:38)
[2020-09-17 16:51] LABS: Glucose Point of Care 131 (65-105)
[2020-09-17] MEDS: MELATONIN 5 MG TABLET PO (20:43)
[2020-09-17 22:29] LABS: Glucose Point of Care 161 (65-105)
[2020-09-18] VITALS: PULSE 79
[2020-09-18 04:00] VITALS: PULSE 70
[2020-09-18] MEDS: LEVOTHYROXINE SODIUM 112 MCG TABLET BY MOUTH (05:03)
[2020-09-18] MEDS: SODIUM CHLORIDE 0.9% IV 1,000 ML 125 ML IV CONT (05:04)
[2020-09-18 06:00] VITALS: BP 127/83; PULSE 83; RESP 18; TEMP 36.8; O2SAT 99
[2020-09-18 06:50] LABS: Hematocrit 26.3 % (42.0-52.0); Hemoglobin 8.2 g/dL (14.0-18.0); Mean Corpuscular HGB Conc 31.2 g/dl (32-36); Mean Corpuscular Hemoglobin 24.3 pg (26-34); Mean Platelet Volume 9.4 fl (7.4-10.4); Platelet Count Result 179 k/mm3 (150-375); Red Blood Count 3.37 M/mm3 (4.6-6.20); Red Cell Distribution Width 19.4 % (11.5-14.5); White Blood Count 8.3 K/mm3 (4.5-10.0)
[2020-09-18 07:07] LABS: Alanine Aminotransferase 52 U/L (4-50); Albumin Level 2.9 g/dL (3.5-5.1); Alkaline Phosphatase 62 U/L (38-126); Anion Gap 3 mmol/L (8-16); Aspartate Amino Transferase 80 U/L (17-59); Bilirubin Direct 0.3 mg/dL (0-0.3); Bilirubin,Total 0.3 mg/dL (0.2-1.3); Blood Urea Nitrogen 13 mg/dL (9-20); Calcium 7.3 mg/dL (8.4-10.2); Carbon Dioxide 25 mmol/L (22-30); Chloride 104 mmol/L (98-107); Estimated CRCL calculation 81 ml/min; Estimated Glomerular Filt Rate > 60; Glucose 118 mg/dL (75-110); Magnesium 1.8 mg/dL (1.6-2.3); Potassium 4.6 mmol/L (3.4-5.0); Sodium 132 mmol/L (137-145)
[2020-09-18 07:37] LABS: Hepatitis B Surface Antigen Negative (Negative)
[2020-09-18 07:42] LABS: HAV RESULT Negative (Negative); Hepatitis B Core IgM Result Negative (Negative)
[2020-09-18 07:54] LABS: Hepatitis C Virus Antibody Negative (Negative)
[2020-09-18 08:01] LABS: Glucose Point of Care 130 (65-105)
--- NOTE | 2020-09-18 08:10 | WPDANESPN ---
Anes - Prog Note Post-Op Date/Time: 09/18/20 08:10 Cardiovascular status: normal Respiratory status: normal Airway patency: baseline Mental status: baseline Post-Op hydration status: normal Vital Signs: Last Vital Signs Temp 36.8 C 09/18/20 06:00 Pulse 83 09/18/20 06:00 Resp 18 09/18/20 06:00 BP 127/83 09/18/20 06:00 Pulse Ox 99 09/18/20 06:00 Pain Score (VAS): 0/10. Patient resting in bed at time of assessment, appears comfortable. Pt. discussed discomfort on left buttock, RN aware. I/O: Intake & Output 09/17/20 09/18/20 09/18/20 23:59 07:59 15:59 Intake Total 1630 1200 Output Total 750 1200 Balance 880 0 Laboratory Tests 09/18/20 06:00 09/18/20 06:00 09/16/20 09/17/20 09/17/20 09:38 08:13 11:23 WBC RBC Hgb Hct MCV MCH MCHC RDW Plt Count MPV Sodium Potassium Chloride Carbon Dioxide Anion Gap BUN Creatinine Estim Creat Clear Calc Estimated GFR Glucose POC Capillary Glucose 128 H 134 H Calcium Magnesium Total Bilirubin Direct Bilirubin AST ALT Alkaline Phosphatase Total Protein Albumin Hepatitis A IgM Ab Hep Bs Antigen Hep B Core IgM Ab Hepatitis C Ab Screen Blood Type O Positive Antibody Screen Negative Crossmatch See Detail 09/17/20 09/17/20 09/17/20 13:39 15:38 16:39 WBC RBC Hgb 9.0 L Hct 28.9 L MCV MCH MCHC RDW Plt Count MPV Sodium Potassium Chloride Carbon Dioxide Anion Gap BUN Creatinine Estim Creat Clear Calc Estimated GFR Glucose POC Capillary Glucose 118 H 131 H Calcium Magnesium Total Bilirubin Direct Bilirubin AST ALT Alkaline Phosphatase Total Protein Albumin Hepatitis A IgM Ab Hep Bs Antigen Hep B Core IgM Ab Hepatitis C Ab Screen Blood Type Antibody Screen Crossmatch 09/17/20 09/18/20 09/18/20 20:50 06:00 06:00 WBC 8.3 RBC 3.37 L Hgb 8.2 L Hct 26.3 L MCV 78.0 L MCH 24.3 L MCHC 31.2 L RDW 19.4 H Plt Count 179 MPV 9.4 Sodium 132 L Potassium 4.6 Chloride 104 Carbon Dioxide 25 Anion Gap 3 L BUN 13 Creatinine 0.80 Estim Creat Clear Calc 81 Estimated GFR > 60 Glucose 118 H POC Capillary Glucose 161 H Calcium 7.3 L Magnesium 1.8 Total Bilirubin 0.3 Direct Bilirubin 0.3 AST 80 H ALT 52 H Alkaline Phosphatase 62 Total Protein 6.0 L Albumin 2.9 L Hepatitis A IgM Ab Hep Bs Antigen Hep B Core IgM Ab Hepatitis C Ab Screen Blood Type Antibody Screen Crossmatch 09/18/20 09/18/20 06:00 07:51 WBC RBC Hgb Hct MCV MCH MCHC RDW Plt Count MPV Sodium Potassium Chloride Carbon Dioxide Anion Gap BUN Creatinine Estim Creat Clear Calc Estimated GFR Glucose POC Capillary Glucose 130 H Calcium Magnesium Total Bilirubin Direct Bilirubin AST ALT Alkaline Phosphatase Total Protein Albumin Hepatitis A IgM Ab Negative Hep Bs Antigen Negative Hep B Core IgM Ab Negative Hepatitis C Ab Screen Negative Blood Type Antibody Screen Crossmatch Post-procedural complaints: none Patient Feedback: Patient satisfied with anesthetic care.
[2020-09-18] MEDS: ATORVASTATIN 40 MG TABLET PO (09:46)
[2020-09-18] MEDS: sulfaSALAzine 500 MG TABLET 1500 MG PO (09:47)
[2020-09-18] MEDS: CYANOCOBALAMIN 500 MCG TABLET PO (09:48)
[2020-09-18] MEDS: MULTIVITAMINS THERAPEUTIC TAB (*BKC) 1 TABLET PO (09:48)
[2020-09-18] MEDS: LOSARTAN POTASSIUM 100 MG TABLET PO (09:48)
[2020-09-18] MEDS: ASCORBIC ACID 500 MG TABLET PO (09:48)
[2020-09-18] MEDS: PANTOPRAZOLE SODIUM IV 40 MG VIAL IV PUSH (09:58)
[2020-09-18 12:00] VITALS: PULSE 66
[2020-09-18 12:14] LABS: Hematocrit 26.4 % (42.0-52.0); Hemoglobin 8.3 g/dL (14.0-18.0)
[2020-09-18 12:16] LABS: Glucose Point of Care 142 (65-105)
[2020-09-18 14:00] VITALS: BP 125/78; PULSE 64; RESP 18; TEMP 36.9; O2SAT 100
--- NOTE | 2020-09-18 14:21 | PM.DS ---
DS: Admitting Diagnosis Admitting Diagnosis Admitting Diagnosis: anemia DS: Discharge Diagnosis Discharge Diagnosis (1) Acute lower gastrointestinal bleeding: Code(s): K92.2 - Gastrointestinal hemorrhage, unspecified Status: Acute Assessment and Plan: Pt has received 5 units of blood while hospitalized -hgb day of d/c was 8.3 -No signs or symptoms of further blood loss -EGD showed esophagitis and severe erosive gastritis but no ulcers or AVMs. -colonoscopy revealed pseudo polyps with no signs of bleeding. No evidence acute colitis. Hemorrhoids -bleeding could of been a slow chronic bleed from esophagitis/gastritis or possible small-bowel etiology? No signs of hemolytic anemia but anemia labs were not drawn prior to the 5 units of blood. -Pt was educated to watch for further bleeding and educated on the signs and symptoms of blood loss to come back to the ER for. -He was started on ferrous sulfate -GI recommended resuming apixaban 1 week after discharge. (2) Edema of both legs: Code(s): R60.0 - Localized edema Status: Acute Assessment and Plan: Chronic and unchanged (3) Ulcerative colitis: Code(s): K51.90 - Ulcerative colitis, unspecified, without complications Status: Acute Assessment and Plan: Hx of UC -appears to be in remission (4) Tobacco abuse: Code(s): Z72.0 - Tobacco use Status: Acute (5) Mixed hyperlipidemia: Code(s): E78.2 - Mixed hyperlipidemia Status: Acute Assessment and Plan: Continue with atorvastatin (6) ALLEN (obstructive sleep apnea): Code(s): G47.33 - Obstructive sleep apnea (adult) (pediatric) Status: Acute Assessment and Plan: The patient is intolerant of CPAP (7) Essential hypertension: Code(s): I10 - Essential (primary) hypertension Status: Acute Assessment and Plan: last bp 125/78 -Continue with home medication. (8) Chronic atrial fibrillation, unspecified: Code(s): I48.20 - Chronic atrial fibrillation, unspecified Status: Acute Assessment and Plan: Last heart rate 64 -I do not see any rate-controlling medications -Hold Pradaxa 1 week secondary to above (9) Type 2 diabetes mellitus without complication: Qualifiers: Diabetes mellitus jail insulin use: without emt intermediate use Qualified Code(s): E11.9 - Type 2 diabetes mellitus without complications Code(s): E11.9 - Type 2 diabetes mellitus without complications Status: Acute Assessment and Plan: Last glucose 142 -A1c, 7.4 -hold home Janumet -Continue SSI (10) Acute blood loss anemia: Code(s): D62 - Acute posthemorrhagic anemia Status: Acute Assessment and Plan: As above DS: Summary Hospital Course Hospital Course: 85-year-old male with a history of atrial fibrillation on apixaban who presented emergency room September 16, 2020 for increased shortness of breath, weakness, and rust colored stool. Were pulse 77, respiratory rate 18, blood pressure 119/45, pulse ox 99 on room air. Initial white blood cell count 8.6, hemoglobin 4.5, hematocrit 15.4, platelets 307. BMP showed hyponatremia 128 and glucose 207. Chest x-ray showed atelectasis versus pneumonia but the patient ensured me he had no cough, fevers or chest pain. He was educated to call his primary care physician if any of these symptoms occur. Suspect atelectasis. Patient was admitted to the hospitalist service and received 5 units of blood. He had an EGD and colonoscopy as stated above. It is unclear the etiology of his anemia although it could possibly be from blood loss through his GI tract over time from his UC, gastritis, and esophagitis. No anemia labs were drawn on admission and after 5 in the blood, I do not believe they would be completely active. There was no evidence of hemolytic anemia as his hemoglobin remained stable aft
--- NOTE | 2020-09-18 15:18 | WPDGIPROGNO ---
Progress Note: A&P Assessment and Plan (1) GI bleed: Code(s): K92.2 - Gastrointestinal hemorrhage, unspecified Status: Acute Assessment and Plan: egd showed non-bleeding gastric ulcers and erosive esophagitis will take ppi twice daily and follow-up with Dr Burr in 3 months for EGD to assess healing (2) Gastric peptic ulcer: Code(s): K25.9 - Gastric ulcer, unspecified as acute or chronic, without hemorrhage or perforation Status: Acute Assessment and Plan: on ppi bid avoid nsaid's (3) Erosive esophagitis: Code(s): K22.10 - Ulcer of esophagus without bleeding Status: Acute (4) Acute blood loss anemia: Code(s): D62 - Acute posthemorrhagic anemia Status: Acute Assessment and Plan: low but stable (5) Ulcerative colitis: Code(s): K51.90 - Ulcerative colitis, unspecified, without complications Status: Acute Assessment and Plan: poor prep yesterday, I did a sigmoidoscopy. Had pseudolyps but mucosa was ok otherwise, pending bx continue with sulfasalazine and follow-up with Dr Burr (6) On anticoagulant therapy: Code(s): Z79.01 - [facility] (current) use of anticoagulants Status: Acute Assessment and Plan: hold pradaxa at least for a week and repeat cbc as outpatient Subjective Date/time seen: 09/18/20 15:18 Interval history: he is doing great and he is going home today Review of Systems Review of Systems: All systems reviewed & are unremarkable except as noted in HPI and below Exam Const: General: comfortable and no acute distress Other: pale HENMT: General nose exam: Normal nares present Eyes: General: appearance normal, both eyes and all related structures Neck: Neck: supple Resp: Auscultation: clear to auscultation bilaterally Cardio: Rate: regular rate GI: Inspection: non-distended GI Palp: Yes Soft to palpation and No Guarding due to palpation present (GI) Auscultation: normal bowel sounds Skin: Other: chronic venous stasis leg Neuro: Speech: normal speech Motor exam (neuro): Normal motor muscle tone present throughout Extrem: General: pedal edema Psych: Affect: normal affect Objective Data Vital Signs Vital Signs: Vital Signs - 24 hr 09/17/20 15:39 09/17/20 16:00 09/17/20 20:00 Temperature 98.1 F Pulse Rate 66 72 68 Respiratory Rate 17 Blood Pressure 128/82 Pulse Oximetry 100 09/17/20 22:00 09/18/20 00:00 09/18/20 04:00 Temperature 98.8 F Pulse Rate 83 79 70 Respiratory Rate 18 Blood Pressure 107/63 Pulse Oximetry 94 09/18/20 06:00 09/18/20 12:00 Temperature 98.2 F Pulse Rate 83 66 Respiratory Rate 18 Blood Pressure 127/83 Pulse Oximetry 99 Intake/Output Intake/Output: Intake & Output 09/15/20 09/16/20 09/17/20 09/18/20 23:59 23:59 23:59 23:59 Intake Total 1974 4500 1440 Output Total 300 1425 1200 Balance 1674 3075 240 Meds/Results Medications: Active Medications Generic Name Dose Route Start Last Admin Trade Name Freq PRN Reason Stop Dose Admin Ascorbic Acid 500 mg 09/17/20 09:00 09/18/20 09:48 Ascorbic Acid 500 Mg Tablet PO 500 mg DAILY ZAIRA Administration Atorvastatin Calcium 40 mg 09/17/20 09:00 09/18/20 09:46 Atorvastatin 40 Mg Tablet PO 40 mg DAILY ZAIRA Administration Cyanocobalamin 500 mcg 09/17/20 09:00 09/18/20 09:48 Cyanocobalamin 500 Mcg Tablet PO 500 mcg DAILY ZAIRA Administration Dextrose 12.5 gm 09/16/20 14:24 Dextrose 50% 25 Gm/50 Ml Syringe IV PUSH PRN PRN Hypoglycemia Protocol Furosemide 40 mg 09/17/20 09:00 09/18/20 14:33 Furosemide 40 Mg Tablet PO Not Given QAM ZAIRA Glucagon 1 mg 09/16/20 14:24 Glucagon For Inj 1 Mg Vial IM PRN PRN Hypoglycemia Protocol Glucose 15 gm 09/16/20 14:24 Glucose Oral Gel 15 Gm Of Glucse In 37.5 Gm Tube PO PRN PRN Hypoglycemia Protocol Sodium Chloride 1,000
== END 2020-09-18 16:09 | disposition home or self-care (01) | DRG 368 ==
LOC: ANHED 11:02 → ANH3MEDSUR 14:09
PROVIDERS: Internal Medicine Gastroenterology; Nurse Practitioner; Physician Assistant; Admitting Provider Family Medicine; Emergency Provider Emergency Medicine; PCP Internal Medicine; Visit Provider Internal Medicine
PROC: 0DJ08ZZ Inspection of Upper Intestinal Tract, Via Natural or Artificial Opening Endoscopic (ICD-10-PCS; CPT 43235; principal; 2020-09-17 15:30)
DX: K20.91 Esophagitis, unspecified with bleeding (principal); K29.71 Gastritis, unspecified, with bleeding; K25.4 Chronic or unspecified gastric ulcer with hemorrhage; K51.90 Ulcerative colitis, unspecified, without complications; I48.20 Chronic atrial fibrillation, unspecified; D62 Acute posthemorrhagic anemia; K63.9 Disease of intestine, unspecified; K64.8 Other hemorrhoids; I11.0 Hypertensive heart disease with heart failure; I50.9 Heart failure, unspecified; G47.33 Obstructive sleep apnea (adult) (pediatric); E78.00 Pure hypercholesterolemia, unspecified; E11.9 Type 2 diabetes mellitus without complications; E78.2 Mixed hyperlipidemia; R60.0 Localized edema; F17.210 Nicotine dependence, cigarettes, uncomplicated; Z79.01 Long term (current) use of anticoagulants; Z79.84 Long term (current) use of oral hypoglycemic drugs; Z79.899 Other long term (current) drug therapy; Z86.718 Personal history of other venous thrombosis and embolism; Z85.821 Personal history of Merkel cell carcinoma
CPT/HCPCS: 36415; 36430; 71046; 76705; 80048; 80053; 80074; 80076; 82948; 83036; 83735; 83880; 84443; 84484; 85014; 85018; 85025; 85027; 86850; 86900; 86901; 86923; 87081; 88305; 93005; 97161; 97165; 99285; A9270; C9113; C9803; J2405; J2704; J3475; J7030; J7050; J7120; P9016; U0003; U0005

== ENCOUNTER 2020-10-02 14:03 | Outpatient (CLI) | payer MEDICARE, SELFPAY ==
--- NOTE | 2020-10-02 17:32 | WPDPFTINT ---
PFT Interpretation This is a pulmonary function test with spirometry and diffusing capacity. The test was performed and results interpreted in accordance with the 2019 and 2005 ATS/ERS Task Force guidelines respectively using the Global Lung Function Initiative-2012 reference equations. Patient demonstrated good effort and cooperation. Reproducibility criteria were met. The quality of the pre bronchodilator spirometry maneuver was Grade A. Findings: Spirometry: There is decreased maximal expiratory airflow at low lung volumes with concave expiratory flow tracing. The inspiratory flow tracing is normal. The FVC is 2.94 L, 77% predicted. The FEV1 is 1.96 L, 70% predicted. The FEV1: FVC ratio is 67%. Diffusing capacity: The absolute diffusion capacity is 13.8, 60% predicted. The diffusing capacity corrected for alveolar volume is 2.38, 67% predicted. Impression: There is a mild obstructive abnormality. A concurrent restrictive abnormality cannot be excluded as there were no lung volumes measured. The absolute diffusing capacity is moderately decreased and normalizes when corrected for alveolar volume. There are no prior studies for comparison PFT Procedure Performed PFT Procedure Performed Diffusing Cap (DLCO) Spirometry w/o Bronchodil
== END 2020-10-02 14:04 | disposition home or self-care (01) ==
PROVIDERS: PCP Internal Medicine; Visit Provider Internal Medicine Cardiovascular Disease
DX: R06.00 Dyspnea, unspecified (principal); R94.2 Abnormal results of pulmonary function studies
CPT/HCPCS: 94375; 94729

== ENCOUNTER 2020-10-14 13:55 | Outpatient (CLI) | payer MEDICARE, SELFPAY ==
--- NOTE | ~2020-10-14 | CT_ITS ---
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 Prior CT demonstra ting enlarged right axillary lymph node, newly developed 4 mm lingular nodule. TECHNIQUE: Spiral CT of the chest following intravenous injection of 100 mL Omnipaque 350. Axial, co mily and sagittal images were reviewed. Coronal maximum intensity pixel images of chest reviewed. M aximum intensity projection 3-D reconstructions of the aorta were created by the technologist on [employer] workstation. The dose-length product (DLP) for this examination was 806.61 mGy-cm. The exposu re was tailored according to patient size (auto mA exposure control), and iterative reconstruction (A SIR) was used as additional dose reduction technique. Comparison is made to prior examination from . FINDINGS: Ascending aorta and aortic root measures 4.3 cm, mildly enlarged, but unchanged compared to prior study. There is no thoracic aortic dissection. At least moderate stenosis of the superior mese nteric artery origin. Probably mild stenosis of the right renal artery origin. Right axillary lymph node measures 4.7 x 3.7 cm, was 3.2 cm on prior study. There are right axillary surgical clips. No supraclavicular or mediastinal lymphadenopathy. No central pulmonary emboli. Previ ously described 4 mm lingular nodule is unchanged, consistent with noncalcified granuloma. There are no suspicious pulmonary opacities. There is mild emphysema. There are no pleural or pericardial effus ions. Tracheobronchial tree is patent. There is no pneumothorax. Mild biatrial enlargement. Th ere are dense coronary arteries, could be severe coronary arterial sclerosis and/or coronary artery s tent(s), which are difficult to distinguish due to cardiac motion on this non-gated exam. Mildly enlarged periportal lymph node at 1.3 x 1.5 cm, but is unchanged, probably reactive (these wer e not active on PET/CT 2018). There is moderate thoracic spondylosis without osteoblastic or osteolyt ic lesions identified. IMPRESSION: 1. 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 2. Increase in size of right axillary metastatic lymph node. 3. Otherwise stable exam. Reviewed, dictated and finalized at location A.
== END 2020-10-14 13:56 | disposition home or self-care (01) ==
PROVIDERS: PCP Internal Medicine; Visit Provider Internal Medicine Cardiovascular Disease
DX: I71.2 Thoracic aortic aneurysm, without rupture (principal)
CPT/HCPCS: 71275; Q9967

== ENCOUNTER 2020-11-11 13:08 | Outpatient (CLI) | payer MEDICARE, SELFPAY ==
--- NOTE | ~2020-11-11 | US_ITS ---
EXAMINATION: US biopsy lymph node DATE: 11/11/2020 14:05 INDICATION: Enlarged right axillary lymph node TECHNIQUE: The procedure including the risks and benefits was discussed with the patient. Risks discu ssed included bleeding and infection. The patient understood the risks and agreed to proceed. The sk in overlying the right axilla was prepped and draped in usual sterile fashion. Anesthetic was admini stered with 1% lidocaine subcutaneously. A 14 gauge core biopsy needle was advanced under continuous ultrasound observation to the lesion of interest. 5 core biopsy specimens were obtained, 3 placed i n RPMI media and 2 in formalin. The needle was removed and the entry site was cleaned and dressed. Post procedure ultrasound demonstrated no hemorrhage. FINDINGS: Ultrasound images demonstrate a 5.9 x 5.5 x 3.9 cm heterogeneously hypoechoic mass at the r ight axilla. IMPRESSION: 1. Successful Ultrasound-guided biopsy of a 5.9 cm right axillary mass. Reviewed, dictated and finalized at location A.
== END 2020-11-11 13:09 | disposition home or self-care (01) ==
LOC: ANHIMG 13:11
PROVIDERS: PCP Internal Medicine; Visit Provider Surgery
DX: C7B.1 Secondary Merkel cell carcinoma (principal)
CPT/HCPCS: 38505; 76942; 88184; 88185; 88305; 88342

== ENCOUNTER 2020-11-28 07:25 | Outpatient (CLI) | payer MEDICARE, SELFPAY ==
--- NOTE | ~2020-11-28 | PE_ITS ---
EXAMINATION: PET skull to mid thigh DATE: 11/28/2020 09:13 INDICATION: Secondary Redway cell carcinoma. TECHNIQUE: Blood glucose level was 142 mg/dL. 11.723 mCi of 18-fluorodeoxyglucose (18-FDG) was admini stered i.v. Low dose computed tomography (CT) images were acquired from the base of the brain to the proximal thighs for attenuation correction and anatomic localization. Automated exposure control was employed. Dose-length product (DLP) was 1201 mGy-cm. Positron emission tomography (PET) images were a cquired in the same distribution. COMPARISON: Chest CT 10/14/2020, PET CT 08/16/2018 FINDINGS: Head/neck: There is increased activity in the oral pharynx and glottis without CT correlate, likely p hysiologic. There are no pathologically enlarged lymph nodes. Chest: There is no pulmonary nodule or pleural effusion. Cardiomegaly is noted. There are coronary ar osorio calcifications. No pericardial effusion. The central pulmonary arteries are enlarged, consistent with pulmonary arterial hypertension. There is ectasia of ascending aorta measuring 4.3 cm. There is a 4.9 x 3.8 cm right axillary node with maximum SUV of 12.1, increased from 2.8 x 2.3 cm on 08/16/18. The normal mediastinal maximum SUV is 3.3. The normal liver maximum SUV is 4.7. Abdomen/pelvis/proximal thighs: The liver and gallbladder are normal. The spleen is normal in size. T he pancreas, adrenal glands, and kidneys are normal. There are no dilated loops of bowel. There is mi ld periportal lymphadenopathy with activity lower than mediastinal activity, stable from 08/16/18. For example, a periportal node measures 23 x 13 mm. There is no free intraperitoneal fluid. There is a t otal right hip arthroplasty. There is severe lumbar spondylosis. IMPRESSION: 1. Enlarged right axillary lymph node with increased activity, worsened from 08/16/18, consistent with metastatic Reji cell carcinoma. Reviewed, dictated and finalized at location A. IMPRESSION: 1. Enlarged right axillary lymph node with increased activity, worsened from , consistent with metastatic Redway cell carcinoma.
[2020-11-28 07:47] LABS: Glucose Point of Care 142 mg/dl (65-105)
== END 2020-11-28 07:26 | disposition home or self-care (01) ==
PROVIDERS: PCP Internal Medicine; Visit Provider Surgery
DX: Z03.89 Encounter for observation for other suspected diseases and conditions ruled out (principal); C7B.1 Secondary Merkel cell carcinoma; Z51.81 Encounter for therapeutic drug level monitoring; Z79.899 Other long term (current) drug therapy
CPT/HCPCS: 78815; 82948; A9552

== ENCOUNTER 2021-01-07 09:28 | Outpatient (CLI) | payer MEDICARE, SELFPAY ==
[2021-01-07 10:02] LABS: Hematocrit 39.3 % (42.0-52.0); Hemoglobin 13.2 g/dL (14.0-18.0); Mean Corpuscular HGB Conc 33.6 g/dl (32-36); Mean Corpuscular Hemoglobin 27.2 pg (26-34); Platelet Count Result 170 k/mm3 (150-375); Red Blood Count 4.85 M/mm3 (4.6-6.20); Red Cell Distribution Width 14.9 % (11.5-14.5); White Blood Count 5.1 K/mm3 (4.5-10.0)
[2021-01-07 10:13] LABS: Anion Gap 9 mmol/L (8-16); Blood Urea Nitrogen 9 mg/dL (9-20); Calcium 9.1 mg/dL (8.4-10.2); Carbon Dioxide 25 mmol/L (22-30); Chloride 97 mmol/L (98-107); Estimated Glomerular Filt Rate > 60; Glucose 150 mg/dL (65-110); Potassium 4.4 mmol/L (3.4-5.0); Sodium 131 mmol/L (137-145)
== END 2021-01-07 09:29 | disposition home or self-care (01) ==
LOC: ANHSURGERY 09:34
PROVIDERS: PCP Internal Medicine; Visit Provider Surgery
DX: Z01.818 Encounter for other preprocedural examination (principal)
CPT/HCPCS: 36415; 80048; 85027; 86850; 86870; 86880; 86900; 86901; 86902; 86922; 86970

== ENCOUNTER 2021-01-09 00:41 | Day surgery (SDC) | payer MEDICARE, SELFPAY ==
[2021-01-03 12:57] VITALS: BMI 36.6
--- NOTE | 2021-01-07 12:46 | PM.SD2 ---
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 Reagan. One of the sentinel lymph nodes was positive. He then subsequently underwent completion right axillary lymph node dissection by me. Sixteen additional nodes were reviewed and were all negative. The tumor is a stage IIIB [id number] cancer. The patient was recommended to undergo axillary radiation therapy but declined. He had a CT a on 10/14/2020 which showed an enlarged right axillary lymph node of 4.7 cm. 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 he had a PET-CT scan on November 28, 2020 which showed no evidence of additional Holland cell cancer other than the axilla. Patient was seen in the office and is now taken to surgery for excision of this right axillary recurrence. 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 Epistaxis, recurrent Erosive esophagitis Essential hypertension Gastric peptic ulcer History of Reji cell carcinoma History of ulcerative colitis Hx of deep venous thrombosis Hypersomnolence disorder, acute Hypothyroidism, unspecified IBD (inflammatory bowel disease) Lymphedema Mixed hyperlipidemia Morbid obesity On anticoagulant therapy On retirement drug therapy ALLEN (obstructive sleep apnea) Intolerant to CPAP Paroxysmal atrial fibrillation with rapid ventricular response Postoperative wound dehiscence Pyogenic granuloma Skin cancer screening Skin neoplasm Smoking Thoracic aortic aneurysm without rupture Type 2 diabetes mellitus without complication Ulcerative colitis with complication Ulcerative colitis without complications Urinary incontinence Surgical History Surgical History H/O colonoscopy with polypectomy History of esophagogastroduodenoscopy (EGD) History of hip replacement On the right History of repair of rotator cuff On the left History of surgery on arm Family History Family History Mother Family history of lung cancer Family history of malignant neoplasm of breast in first degree relative Father Family history of throat cancer Other Family history of arthritis Family history of malignant neoplasm Hypertension Social History Social History Social History: The patient lives with his who is not so healthy at this time. He stated that his son and daughter are both the power contracts attorney for both of their appearance. The patient stated that he would like to be a full code but he would not like to live in a vegetative state. 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 The patient states he still smokes about 3-5 cigarettes a day. He does use any alcohol, marijuana or illicit drugs. Smoking packs per day: 0.5 Smoking cigarettes per day: 10.0 Years smoked: 50 Smoking pack-years: 25.00 Smoking status: Current every day smoker Tobacco type: cigarettes Additional smoking assessment comments: has smoked up to 4 packs/day over the 50 years Alcohol intake: current Drinks per week: 1 Substance use: never Living arrangements: with family Gender identity (if verbalized by the patient): Male Spiritual care concerns: No Same Day Admit/Disch: Med Pre-admit Medications Home Medications Medication Instructions Recorded Confirmed Type ascorbate calcium (vitamin C) 500 500 mg PO DAILY 07/27/19 01/09/21 History mg tablet cyanocobalamin (vitam
--- NOTE | 2021-01-08 15:00 | WPDANESEPPF ---
Anes - Initial Pre Proc Eval Procedure: Operation Date: 01/09/21 10:30 Proposed Procedures p Excision Recurrent Reji Cell Cancer Right Axilla - Tyrone Gentile MD Date/Time: 01/08/21 15:00 Surgeon: Tyrone Gentile MD Pre Op Diagnosis: recurrent Wat[place] cell cancer right axilla Patient Data Age: 85 Gender: M Height: 1.78 m Weight: 115.67 kg Allergies Allergy/AdvReac Type Severity Reaction Status Date / Time pantoprazole Allergy Mild Rash Verified 01/09/21 09:17 cephalexin Allergy Unknown rash Verified 01/09/21 09:17 Penicillins Allergy Unknown When he Verified 01/09/21 09:17 was younger. Home Medications Medication Instructions Recorded Confirmed Type ascorbate calcium (vitamin C) 500 500 mg PO DAILY 07/27/19 01/09/21 History mg tablet cyanocobalamin (vitamin B-12) 500 500 mcg PO DAILY 07/27/19 01/09/21 History mcg lozenges multivitamin 1 tablet PO DAILY 07/27/19 01/09/21 History Janumet XR 1 tablet PO DAILY 03/21/20 01/09/21 History dabigatran etexilate 150 mg capsule 150 mg PO BID #60 cap 04/08/20 01/09/21 Rx furosemide 40 mg tablet 40 mg PO QAM 09/09/20 01/09/21 History potassium 10 meq PO DAILY 09/16/20 01/09/21 History foam bandage [Mepilex] #10 ea 09/18/20 12/10/20 Rx pravastatin 10 mg tablet 10 mg PO DAILY 10/01/20 01/09/21 History ferrous sulfate 325 mg PO EVERY OTHER DAY 01/03/21 01/09/21 History losartan 100 mg PO DAILY 01/03/21 01/09/21 History sulfasalazine 1.5 g PO DAILY 01/03/21 01/09/21 History levothyroxine 112 mcg tablet See Rx Instructions .ROUTE 01/06/21 Rx .COMPLEX #90 tablet Patient hx anesthesia problems: none Family hx anesthesia problems: none PMFSH Past Medical History Medical History (Updated 01/08/21 @ 15:00 by Paulino Villanueva DO) Acute blood loss anemia AK (actinic keratosis) Atrial fibrillation Chronic atrial fibrillation, unspecified 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 Epistaxis, recurrent Erosive esophagitis Essential hypertension Gastric peptic ulcer History of [place] cell carcinoma History of ulcerative colitis Hx of deep venous thrombosis Hypersomnolence disorder, acute Hypothyroidism, unspecified IBD (inflammatory bowel disease) Lymphedema Mixed hyperlipidemia Morbid obesity On anticoagulant therapy On halfway drug therapy ALLEN (obstructive sleep apnea) Intolerant to CPAP Paroxysmal atrial fibrillation with rapid ventricular response Postoperative wound dehiscence Pyogenic granuloma Skin cancer screening Skin neoplasm Smoking Thoracic aortic aneurysm without rupture Type 2 diabetes mellitus without complication Ulcerative colitis with complication Ulcerative colitis without complications Urinary incontinence Surgical History Surgical History H/O colonoscopy with polypectomy History of esophagogastroduodenoscopy (EGD) History of hip replacement On the right History of repair of rotator cuff On the left History of surgery on arm Family History Family History Mother Family history of lung cancer Family history of malignant neoplasm of breast in first degree relative Father Family history of throat cancer Other Family history of arthritis Family history of malignant neoplasm Hypertension Social History Social History Social History: The patient lives with his who is not so healthy at this time. He stated that his son and daughter are both the power state's attorney for both of their appearance. The patient stated that he would like to be a full code but he would not like to live in a vegetative state. 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 The patient states he still smokes about 3-5 cigarettes a day. He does use any alcohol, marijuana or illicit drugs. Smoking packs per day: 0.5 Smoking cigarettes per day: 10.0 Yea
[2021-01-09] VITALS (9 sets, daily range): BP systolic 133–173; BP diastolic 50–90; PULSE 54–96; RESP 12–20; TEMP 36.3–36.9; O2SAT 96–100
--- NOTE | 2021-01-09 06:04 | WPDHPUPDATE1 ---
History and Physical Update Update Date/Time: 01/09/21 06:04 History and Physical has been reviewed, including an updated exam of the patient. There are NO changes in the patient's condition. Risks, benefits, and alternatives have been discussed and questions answered. Patient agrees to proceed with procedure.
[2021-01-09] MEDS: LACTATED RINGERS 1,000 ML 30 ML IV CONT (09:40)
[2021-01-09 09:50] LABS: Glucose Point of Care 127 mg/dl (65-105)
[2021-01-09] MEDS: ceFAZolin 2 GM/D5W 50 ML 2 GM/50 ML BAG IVPB (11:08)
[2021-01-09] MEDS: BUPIVACAINE/EPINEPHRINE 0.5% 30 ML VIAL 15 ML INFILTRATE (11:54)
--- NOTE | 2021-01-09 12:15 | P.OP_ITS ---
Procedure Note - Detailed Date of Procedure 01/09/21 Pre-op Diagnosis recurrent Glady cell cancer right axilla Post-op Diagnosis same Procedure Performed Excision metastatic Reji cell cancer right axilla Surgeon Tyrone Gentile MD Technology Intern Stacie ROY SECURITY ASSURANCE ANALYST Anesthesia general and local ( 0.5% Marcaine with epinephrine) Indications patient is an 85-year-old man who had Glady cell cancer of the right arm. He had excision with sentinel lymph node biopsy. The sentinel node biopsy was positive. He had a right axillary dissection as well. He developed a right axillary mass and ultrasound-guided core biopsy showed this to be metastatic Glady cell cancer. PET-CT scan showed no evidence of additional metastatic disease. He is taken to surgery now for excision of the metastatic right axillary enriqueta metastasis. Findings Showed a highly vascular 6.5 x 4 x 4 cm right axillary enriqueta metastasis. No other significant findings were noted. Description of Procedure Patient was marked in the preoperative holding area. He was then taken to surgery and induced into general anesthesia. The right arm was mobile and in the field. The right upper arm and axilla were prepped and draped. The palpable nodule was high in the axilla under the pectoralis major near the axillary vessels. The previous axillary dissection incision was farther caudal. I made the proposed incision that overlapped the inferior border of the pectoralis major and on to the axilla so that it was not exactly parallel to the previous incision. I infiltrated local in the area of the anticipated incision and in the deeper subcutaneous tissues. Incision was made deepened through the subcutaneous. The pectoralis major muscle was retracted cephalad. We then dissected and axillary content. I was easily able to palpate and then exposed the right axillary mass. Using mostly sharp but some blunt dissection the mass was exposed circumferentially. Clips as well as cautery were used for lymph ovascular attachments. Minimal bleeding occurred. Slowly I was able to elevate the mass and finally extricated out of the wound to facilitate dissection of the most posterior attachments. Continued dissection was carried out again using cautery as well as clips. Finally the mass was completely removed. It was measured with the above size dimensions. It was sent to pathology in formalin. The wound was then inspected and made meticulously hemostatic with the cautery and some additional clips. Was quite dry. The wound was closed in layers with interrupted 3 0 Vicryl suture. The subcutaneous was closed with 3 0 Vicryl. Subcuticular interrupted 4 0 Vicryl skin stitches were placed. Finally a running 4 0 Monocryl subcuticular skin stitch was placed. The wound was dressed with Exofin surgical adhesive. the patient was awakened and taken to recovery in good condition. Sponge and needle counts were correct x2. Estimated Blood Loss 5 Drains No Packing No Pathology yes ( Right axillary metastasis Glady cell cancer) Complications None Condition stable Disposition PACU
[2021-01-09 13:52] LABS: Glucose Point of Care 123 mg/dl (65-105)
== END 2021-01-09 14:05 | disposition home or self-care (01) ==
PROVIDERS: PCP Internal Medicine; Visit Provider Surgery
PROC: (CPT 38525; principal; 2021-01-09 10:30)
DX: C4A.61 Merkel cell carcinoma of right upper limb, including shoulder (principal); C7B.1 Secondary Merkel cell carcinoma; I10 Essential (primary) hypertension; E03.9 Hypothyroidism, unspecified; E78.2 Mixed hyperlipidemia; I48.0 Paroxysmal atrial fibrillation; E11.9 Type 2 diabetes mellitus without complications; I71.4 Abdominal aortic aneurysm, without rupture; G47.33 Obstructive sleep apnea (adult) (pediatric); Z79.84 Long term (current) use of oral hypoglycemic drugs; Z86.718 Personal history of other venous thrombosis and embolism; Z87.11 Personal history of peptic ulcer disease; K58.9 Irritable bowel syndrome, unspecified; F17.210 Nicotine dependence, cigarettes, uncomplicated; E66.9 Obesity, unspecified; Z68.36 Body mass index [BMI] 36.0-36.9, adult
CPT/HCPCS: 38525; 82948; 88305; 88307; C1713; J0690; J1100; J2405; J2704; J3010; J7120

== ENCOUNTER → 2021-09-30 15:05 | Outpatient (REF) | payer MEDICARE, SELFPAY | LOC: ANHLAB 15:05 | PROVIDERS: PCP Internal Medicine; Visit Provider Nurse Practitioner | DX: C44.629 Squamous cell carcinoma of skin of left upper limb, including shoulder (principal) | CPT/HCPCS: 88305 ==

== ENCOUNTER → 2021-10-20 09:04 | Outpatient (REF) | payer MEDICARE, SELFPAY | LOC: ANHLAB 09:04 | PROVIDERS: PCP Internal Medicine; Visit Provider Nurse Practitioner | DX: C44.621 Squamous cell carcinoma of skin of unspecified upper limb, including shoulder (principal) | CPT/HCPCS: 88305; 88331; 88332 ==

== ENCOUNTER 2022-03-26 13:00 | Outpatient (NON) | payer MEDICARE, SELFPAY | END 2022-03-26 13:01 | disposition home or self-care (01) | LOC: ANHLAB 03-27 08:15 | PROVIDERS: PCP Internal Medicine; Visit Provider Nurse Practitioner | DX: C44.212 Basal cell carcinoma of skin of right ear and external auricular canal (principal); C43.39 Malignant melanoma of other parts of face | CPT/HCPCS: 88305; 88342 ==

== ENCOUNTER 2022-04-13 08:00 | Outpatient (NON) | payer MEDICARE, SELFPAY | END 2022-04-13 08:01 | disposition home or self-care (01) | LOC: ANHLAB 04-15 13:55 | PROVIDERS: PCP Internal Medicine; Visit Provider Nurse Practitioner | DX: C43.9 Malignant melanoma of skin, unspecified (principal) | CPT/HCPCS: 88305; 88342 ==

== ENCOUNTER 2022-04-27 16:52 | Outpatient (NON) | payer MEDICARE, SELFPAY | END 2022-04-27 16:53 | disposition home or self-care (01) | LOC: ANHLAB 16:54 | PROVIDERS: PCP Internal Medicine; Visit Provider Nurse Practitioner | DX: C44.212 Basal cell carcinoma of skin of right ear and external auricular canal (principal) | CPT/HCPCS: 88305; 88331 ==

== ENCOUNTER 2023-01-04 07:39 | Outpatient (CLI) | payer MEDICARE, SELFPAY ==
[2023-01-04 08:15] LABS: Basophils Absolute Auto 0.1 K/mm3 (0.0-0.1); Basophils Percent Auto 1.2 % (0.2-1.2); Eosinophils Absolute Auto 0.1 K/mm3 (0-0.3); Eosinophils Percent Auto 1.9 % (0-4.4); Hematocrit 33.1 % (42.0-52.0); Hemoglobin 10.7 g/dL (14.0-18.0); Immature Granulocyte Absolute 0.02 K/mm3 (0.00-0.031); Immature Granulocyte Percent A 0.4 % (0-0.5); Lymphocytes Absolute Auto 0.63 K/mm3 (0.9-3.2); Lymphocytes Percent Auto 12.2 % (18.3-44.2); Mean Corpuscular HGB Conc 32.3 g/dl (32-36); Mean Corpuscular Hemoglobin 27.6 pg (26-34); Mean Corpuscular Volume 85.5 fl (80-100); Mean Platelet Volume 8.9 fl (7.4-10.4); Monocytes Absolute Auto 0.6 K/mm3 (0.1-0.6); Monocytes Percent Auto 11.6 % (2.6-8.5); Neutrophils Absolute Auto 3.8 K/mm3 (1.3-6.7); Neutrophils Percent Auto 72.7 % (45.5-73.1); Platelet Count Result 185 k/mm3 (150-375); Red Blood Count 3.87 M/mm3 (4.6-6.20); Red Cell Distribution Width 13.9 % (11.5-14.5); White Blood Count 5.2 K/mm3 (4.5-10.0)
[2023-01-04 08:23] LABS: Alanine Aminotransferase 14 U/L (6-50); Alkaline Phosphatase 76 U/L (38-126); Anion Gap 7 mmol/L (8-16); Aspartate Amino Transferase 27 U/L (17-59); Bilirubin,Total 0.6 mg/dL (0.2-1.3); Blood Urea Nitrogen 18 mg/dL (9-20); Calcium 8.4 mg/dL (8.4-10.2); Carbon Dioxide 25 mmol/L (22-30); Chloride 98 mmol/L (98-107); Cholesterol 125 mg/dL (0-200); Estimated Glomerular Filt Rate 58; Glucose 102 mg/dL (65-110); HDL Direct 37 mg/dL; Magnesium 1.8 mg/dL (1.6-2.3); Potassium 4.6 mmol/L (3.4-5.0); Sodium 130 mmol/L (137-145); Triglycerides 72 mg/dL (<150)
[2023-01-04 08:29] LABS: Hemoglobin A1C 5.7 % (<5.7)
[2023-01-04 08:36] LABS: LDL Cholesterol Direct 56 mg/dL
== END 2023-01-04 07:40 | disposition home or self-care (01) ==
PROVIDERS: PCP Family Medicine; Visit Provider Internal Medicine Cardiovascular Disease
DX: E78.2 Mixed hyperlipidemia (principal); Z79.899 Other long term (current) drug therapy
CPT/HCPCS: 36415; 80053; 80061; 83036; 83735; 84443; 85025

== ENCOUNTER 2023-11-22 07:27 | Outpatient (CLI) | payer MEDICARE, SELFPAY ==
[2023-11-22 08:27] LABS: Hematocrit 36.2 % (42.0-52.0); Hemoglobin 11.9 g/dL (14.0-18.0); Mean Corpuscular HGB Conc 32.9 g/dl (32-36); Mean Corpuscular Hemoglobin 28.5 pg (26-34); Mean Corpuscular Volume 86.6 fl (80-100); Mean Platelet Volume 9.4 fl (7.4-10.4); Platelet Count Result 178 k/mm3 (150-375); Red Blood Count 4.18 M/mm3 (4.6-6.20); White Blood Count 5.7 K/mm3 (4.5-10.0)
[2023-11-22 08:42] LABS: Alanine Aminotransferase 8 U/L (6-50); Albumin Level 4.1 g/dL (3.5-5.1); Alkaline Phosphatase 81 U/L (38-126); Anion Gap 6 mmol/L (4-12); Aspartate Amino Transferase 24 U/L (17-59); Bilirubin,Total 0.8 mg/dL (0.2-1.3); Blood Urea Nitrogen 25 mg/dL (9-20); Calcium 8.8 mg/dL (8.4-10.2); Carbon Dioxide 25 mmol/L (22-30); Chloride 102 mmol/L (98-107); Cholesterol 123 mg/dL (0-200); Estimated Glomerular Filt Rate 52; Glucose 96 mg/dL (65-110); HDL Direct 34 mg/dL; Potassium 4.7 mmol/L (3.4-5.0); Sodium 133 mmol/L (137-145); Triglycerides 91 mg/dL (<150)
[2023-11-22 08:53] LABS: LDL Cholesterol Direct 74 mg/dL
[2023-11-22 10:00] LABS: Hemoglobin A1C 5.9 % (<5.7)
== END 2023-11-22 07:28 | disposition home or self-care (01) ==
LOC: ANHLAB 07:31
PROVIDERS: PCP Family Medicine; Visit Provider Nurse Practitioner
DX: E78.5 Hyperlipidemia, unspecified (principal); E11.9 Type 2 diabetes mellitus without complications; D64.9 Anemia, unspecified
CPT/HCPCS: 36415; 80053; 80061; 83036; 85027

== ENCOUNTER 2024-08-26 08:31 | Outpatient (CLI) | payer MEDICARE, SELFPAY ==
[2024-08-26 10:09] LABS: INR 1.7; Prothrombin Time 20.1 Seconds (11.1-14.7)
== END 2024-08-26 08:32 | disposition home or self-care (01) ==
LOC: ANHLAB 08:34
PROVIDERS: PCP Nurse Practitioner; Visit Provider Internal Medicine Cardiovascular Disease
DX: I48.0 Paroxysmal atrial fibrillation (principal)
CPT/HCPCS: 36415; 85610

== ENCOUNTER 2024-08-31 17:15 | Outpatient (CLI) | payer MEDICARE, SELFPAY ==
[2024-08-31 17:40] LABS: INR 2.9; Prothrombin Time 31.1 Seconds (11.1-14.7)
--- OUTSIDE RECORDS SUMMARY | 2024-08-31 17:40 | XMS_ITS | Clinical Summary ---
Author Organization [facility] Address [address] [place] [address] Care Team Providers Care Road Mixer Operator Name Role Phone David Redman MD Primary Care Provider [phone] Allergies Active Allergy Reactions Criticality Noted Date Comments Penicillins Hives High 10/14/2017 Medications atorvastatin (LIPITOR) 40 mg tablet 40 mg daily. 1 08/26/2017 Active levothyroxine 112 mcg tablet 112 mcg daily. 3 07/08/2017 Active sulfaSALAzine (AZULFIDINE) 500 mg tablet 500 mg 3 times daily. 12 10/10/2017 Active dabigatran etexilate (PRADAXA) 150 mg Capsule Take 150 mg by mouth daily. Active JANUMET XR 100-1,000 mg Extended Release 24 hour tablet Take by mouth. Active valsartan (DIOVAN) 160 mg tablet Take 160 mg by mouth daily. Active cyanocobalamin (VITAMIN B-12) 100 mcg tablet Take 100 mcg by mouth daily. Active multivitamin (DAILY-LUDA) tablet Take 1 Tablet by mouth daily. Active ascorbic acid, vitamin C, (VITAMIN C) 500 mg tablet Take 500 mg by mouth daily. Active Active Problems Problem Noted Date Diagnosed Date A-fib 10/14/2017 HTN (hypertension), benign 10/14/2017 DM (diabetes mellitus) 10/14/2017 Other specified hypothyroidism 10/14/2017 Reji cell tumor 10/14/2017 Encounters Date Type Department Care Team Description 08/26/2024 External Device Data [facility] ABSTRACTION Provider, Abstract 08/25/2024 External Device Data [facility] ABSTRACTION Provider, Abstract 08/23/2024 External Device Data [facility] ABSTRACTION Provider, Abstract 08/09/2024 External Device Data [facility]STRACTION Provider, Abstract 07/18/2024 External Device Data [facility]STRACTION Provider, Abstract from Last 3 Months Immunizations Immunization Administration Dates Next Due (COMIRNATY)(12 YR UP) COVID- 19 VACCINE, MRNA, SPIKE PROTEIN, LNP, IGNACIA(PF) 30 MCG/0.3 ML IM SUSP 04/03/2024 INFLUENZA VACCINE HIGH DOSE QUADRIVALENT 65 YR U P PF IM 04/22/2023 INFLUENZA VACCINE HIGH DOSE TRIVALENT SPLIT VIRUS, (65 YR UP), 0.5ML (PF), IM 04/03/2024 Family History Medical History Relation Name Comments Thyroid Disease Daughter Diabetes Father Stroke Maternal Grandfather Hypertension Mother Lung Cancer Mother Relation Name Status Comments Daughter Father Maternal Grandfather Mother Social History Tobacco Use Types Packs/Day Years Used Date Smoking Tobacco: Every Day Cigarettes 1 60 Alcohol Use Standard Drinks/Week Comments Yes 0 (1 standard drink = 0.6 oz pur e alcohol) occasionally Sex and Gender Information Value Date Recorded Sex Assigned at Not on file Legal Sex Male 1:20 PM CDT Gender Identity Not on file Sexual Orientation Not on file Last Filed Vital Signs Vital Sign Reading Time Taken Comments Blood Pressure 138/78 10/14/2017 10:32 AM CDT Pulse 87 10/14/2017 10:32 AM CDT Temperature 36.5 C (97.7 F) 10/14/2017 10:32 AM CDT Respiratory Rate 18 10/14/2017 10:32 AM CDT Oxygen Saturation 93% 10/14/2017 10:32 AM CDT Inhaled Oxygen Concentration - - Weight 135.6 kg (299 lb) 10/14/2017 10:32 AM CDT Height 177.8 cm (5' 10 ) 10/14/2017 10:32 AM CDT Body Mass Index 42.9 10/14/2017 10:32 AM CDT Plan of Treatment Health Maintenance Due Date Last Done Comments DIABETES ANNUAL FOOT EXAM 1955 DIABETES ANNUAL RETINAL EXAM 1955 DIABETES HBA1C Q 6 MONTHS 1955 DIABETES MICROALBUMIN ANNUAL SCREEN 1955 LDL CHOLESTEROL ANNUAL 1955 DTAP/TDAP/TD VACCINES (1 - Tdap) 1956 PNEUMOCOCCAL VACCINE 50+ YEA RS (1 of 2 - PCV) 1956 ZOSTER VACCINE (1 of 2) 1987 RSV VACCINE (60+ or ) (1 - 1-dose 75+ series) 2012 COVID-19 Vaccine ( season) 2024 INFLUENZA VACCINE Completed 04/03/2024, 04/22/2023 Insurance MEDICARE PART A AND B [facility] SUPP RX [facility] Medicare Part B Care Teams Road Mixer Operator Relationship Specialty Start Date End Date David Redman MD [address] [place] [place] [address] PCP - General Plastic Surgery 06/30/18
== END 2024-08-31 17:16 | disposition home or self-care (01) ==
LOC: ANHLAB 17:17
PROVIDERS: PCP Nurse Practitioner; Visit Provider Internal Medicine Cardiovascular Disease
DX: Z79.01 Long term (current) use of anticoagulants (principal)
CPT/HCPCS: 36415; 85610

== ENCOUNTER 2024-11-15 09:10 | Outpatient (CLI) | payer MEDICARE, SELFPAY ==
--- OUTSIDE RECORDS SUMMARY | 2024-11-15 09:13 | XMS_ITS | Clinical Summary ---
Author Organization [facility] Address [address] [place] [address] Care Team Providers Care Campaign Fundraiser Name Role Phone David Redman MD Primary Care Provider [phone] Allergies Active Allergy Reactions Criticality Noted Date [...] (diabetes mellitus) 10/14/2017 Other specified hypothyroidism 10/14/2017 [place] cell tumor 10/14/2017 Encounters Date Type Department Care Team Description 11/08/2024 External Device Data [facility] ABSTRACTION Provider, Abstract 11/07/2024 External Device Data [facility] Provider, Abstract 10/03/2024 External Device Data [facility] Provider, Abstract 09/19/2024 External Device Data [facility] Provider, Abstract 09/06/2024 External Device Data [facility] ABSTRACTION Provider, [...] 75+ series) 2012 COVID-19 Vaccine (2 - 2023- season) 2024 INFLUENZA VACCINE Completed 04/03/2024, 04/22/2023 Insurance [employer] SUPP RX [employer] Medicare Part B Care Teams Campaign Fundraiser Relationship Specialty Start Date End Date David Redman MD [address] [place] [phone] PCP - General Plastic Surgery 06/30/18
[2024-11-15 09:48] LABS: Hemoglobin A1C 5.3 % (<5.7)
[2024-11-15 09:51] LABS: Alanine Aminotransferase 12 U/L (6-50); Alkaline Phosphatase 83 U/L (38-126); Anion Gap 5 mmol/L (4-12); Aspartate Amino Transferase 44 U/L (17-59); Bilirubin,Total 0.7 mg/dL (0.2-1.3); Blood Urea Nitrogen 32 mg/dL (9-20); Calcium 8.5 mg/dL (8.4-10.2); Carbon Dioxide 24 mmol/L (22-30); Chloride 101 mmol/L (98-107); Cholesterol 107 mg/dL (0-200); Estimated Glomerular Filt Rate 43; Glucose 89 mg/dL (65-110); HDL Direct 34 mg/dL; Sodium 130 mmol/L (137-145); Triglycerides 88 mg/dL (<150)
[2024-11-15 10:02] LABS: LDL Cholesterol Direct 41 mg/dL
== END 2024-11-15 09:11 | disposition home or self-care (01) ==
PROVIDERS: PCP Nurse Practitioner; Visit Provider Nurse Practitioner
DX: E78.5 Hyperlipidemia, unspecified (principal); E11.9 Type 2 diabetes mellitus without complications
CPT/HCPCS: 36415; 80053; 80061; 83036

== ENCOUNTER 2024-11-15 09:12 | Outpatient (RCR) | payer MEDICARE, SELFPAY ==
[2024-09-11 18:06] LABS: INR 2.3; Prothrombin Time 26.2 Seconds (11.1-14.7)
--- OUTSIDE RECORDS SUMMARY | 2024-09-11 18:52 | XMS_ITS | Clinical Summary ---
Author Organization [facility] Address [address] [place] [address] Care Team Providers Care Help Desk Manager Name Role Phone David Redman MD Primary Care Provider [phone] Allergies Active Allergy Reactions Criticality Noted Date [...] Encounters Date Type Department Care Team Description 09/06/2024 External Device Data [facility]STRACTION Provider, Abstract 08/26/2024 External Device Data [facility]STRACTION Provider, [...] 10:32 AM CDT Height 177.8 cm (5' 10) 10/14/2017 10:32 AM CDT Body Mass Index [...] - 1-dose 75+ series) 2012 COVID-19 Vaccine (2 - season) 2024 INFLUENZA VACCINE Completed 04/03/2024, 04/22/2023 Insurance MEDICARE PART A AND B [facility] SUPP RX [facility] DATA Medicare Part B Care Teams Help Desk Manager Relationship Specialty Start Date End Date David Redman MD [address] [facility] [address] [place] [address] PCP - General Plastic Surgery 06/30/18
[2024-11-15 09:49] LABS: INR 1.4; Prothrombin Time 17.4 Seconds (11.1-14.7)
== END 2024-12-10 23:59 | disposition home or self-care (01) ==
LOC: ANHLAB 09:12
PROVIDERS: PCP Nurse Practitioner; Visit Provider Internal Medicine Cardiovascular Disease
DX: I48.20 Chronic atrial fibrillation, unspecified (principal)
CPT/HCPCS: 36415; 80053; 80061; 83036; 85610

== ENCOUNTER 2025-01-05 09:03 | Outpatient (RCR) | payer MEDICARE, SELFPAY ==
--- OUTSIDE RECORDS SUMMARY | 2025-01-05 09:07 | XMS_ITS | Clinical Summary ---
Author Organization [facility] Address [address] [place] [address] Care Team Providers Care Mat Making Machine Tender Name Role Phone David Redman MD Primary Care Provider [phone] Allergies Active Allergy Reactions Criticality Noted Date [...] (diabetes mellitus) 10/14/2017 Other specified hypothyroidism 10/14/2017 [place] cell tumor 10/14/2017 Encounters Date Type Department Care Team Description 01/02/2025 External Device Data [facility] ABSTRACTION Provider, Abstract 11/08/2024 External Device Data [facility] ABSTRACTION Provider, [...] 75+ series) 2012 COVID-19 Vaccine (2 - 2024-25 season) 2024 INFLUENZA VACCINE (#1) 2025 04/03/2024, 2022 Insurance MEDICARE PART A AND B [facility] SUPP RX [employer] Medicare Part B Care Teams Mat Making Machine Tender Relationship Specialty Start Date End Date David Redman MD [address] [place] [id number] PCP - General Plastic Surgery 06/30/18
--- OUTSIDE RECORDS SUMMARY | 2025-01-05 09:07 | XMS_ITS | Encounter Summary ---
Author Organization [facility] Address [address] [place] [address] Care Team Providers Care Optical Fabrication Technician Name Role Phone David Redman MD Primary Care Provider [phone] Encounter Details Date Type Department Care Team (Late st Contact Info) Description 01/02/2025 External Device Data [facility] Provider, Abstract NO ADDRESS ON FILE Social History Tobacco Use Types Packs/Day Years Used Date Smoking Tobacco: Every Day Cigarettes 1 60 Alcohol Use Standard Drinks/Week Comments Yes 0 (1 standard drink = 0.6 oz pur e alcohol) occasionally Sex and Gender Information Value Date Recorded Sex Assigned at Not on file Legal Sex Male 1:20 PM CDT Gender Identity Not on file Sexual Orientation Not on file documented as of this encounter Plan of Treatment Not on file documented as of this encounter Visit Diagnoses Not on filedocumented in this encounter Care Teams Optical Fabrication Technician Relationship Specialty Start Date End Date David Redman MD [address] [place] [address] PCP - General Plastic Surgery 06/30/18 documented as of this encounter
[2025-01-05 10:29] LABS: INR 1.7; Prothrombin Time 19.8 Seconds (11.1-14.7)
== END 2025-04-05 23:59 | disposition home or self-care (01) ==
LOC: ANHLAB 09:03
PROVIDERS: PCP Nurse Practitioner; Visit Provider Internal Medicine Cardiovascular Disease
DX: I48.0 Paroxysmal atrial fibrillation (principal)
CPT/HCPCS: 36415; 85610

== ENCOUNTER 2025-01-08 09:03 | Inpatient (IN) | payer MEDICARE, SELFPAY ==
[2025-01-08] VITALS (46 sets, daily range): BP systolic 83–131; BP diastolic 42–69; PULSE 51–98; RESP 9–29; TEMP 36.1–36.4; O2SAT 91–100; BMI 28.4
--- NOTE | ~2025-01-08 | XR_ITS ---
EXAM/PROCEDURE: XR chest 1V - 01/08/2025 11:35 CDT HISTORY: 89 years old Male with weakness TECHNIQUE: Two view(s) of the chest. COMPARISON: None available. FINDINGS: LUNGS/ PLEURA: Mild vascular congestion with increased interstitial markings. Small left pleural effu avtar. HEART/ MEDIASTINUM: Mild cardiomegaly. BONES: Degenerative changes. OTHER: Visualized upper abdomen is unremarkable. IMPRESSION: Mild CHF. Superimposed infection cannot be excluded. Clinical correlation is recommended. Reviewed, dictated and finalized at location A. IMPRESSION: Mild CHF. Superimposed infection cannot be excluded. Clinical correlation is re commended.
--- NOTE | ~2025-01-08 | CT_ITS ---
EXAM: CT chest abdomen pelvis w con - 01/08/2025 12:45 CDT HISTORY: 89 years old Male with poss PNA on CXR; recent diarrhea; FTT/gen weakness TECHNIQUE: Multidetector CT of the chest, abdomen and pelvis was performed with intravenous contrast Coronal and sagittal reformats were also provided for review. Automatic exposure control was used for this study. CONTRAST: 100 cc of Optiray 350 was used for this study COMPARISON: None available FINDINGS: CHEST: VISUALIZED LOWER NECK: Thyroid gland appears normal. No supraclavicular lymphadenopathy. AIRWAYS: Patent centrally. LUNGS and PLEURA: New 3.3 x 1.8 cm mass in the left lower lobe of the lung. Multiple additional new p ulmonary nodules are seen, the largest which is in the left upper lobe and measures 9 mm. 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 HEART AND PERICARDIUM: Heart is normal in size. No pericardial effusion. CHEST WALL: No axillary lymphadenopathy. Chest wall appears normal. VASCULATURE: Thoracic aorta and pulmonary arteries are normal in caliber. ABDOMEN and PELVIS: LIVER: Within normal limits. GALLBLADDER: No calcified gallstones. BILE DUCTS: Normal caliber. SPLEEN: Within normal limits. PANCREAS: Within normal limits. ADRENAL GLANDS, KIDNEYS and URETERS: There is a 13.1 x 10.3 x 13.5 cm large mass encasing and replaci ng the right adrenal gland and superior part of the right kidney. There is another 8.3 x 7.4 x 7.3 cm large mass centered around the left suprarenal region. Both these masses causing mass effect on the pancreas and right hepatic lobe. URINARY BLADDER: Within normal limits. STOMACH and BOWEL: Limited evaluation without adequate distention due to lack of oral contrast. Withi n the limits there appears to be no abnormal bowel wall thickening. No bowel obstruction. REPRODUCTIVE ORGANS: Within normal limits. MESENTERY/PERITONEAL CAVITY: No free fluid or pneumoperitoneum. LYMPH NODES: Para-aortic and mesenteric lymphadenopathy with large enriqueta complex on both sides, as de tailed above. ABDOMINAL WALL: Bilateral fat-containing inguinal hernia. Fat-containing umbilical hernia. VASCULATURE: Within normal limits. MUSCULOSKELETAL, THORACIC AND LUMBAR SPINE: Degenerative changes, as above. Status post right hip art hroplasty. IMPRESSION: Partially visualized large left supraclavicular mass (enriqueta conglomerate), new left lower lobe lung m ass, multiple new left pulmonary nodules, large para-aortic lymphadenopathy with 13.5 cm and 7.4 cm m asses on either side, all compatible with worsening metastatic disease, as detailed above. Reviewed, dictated and finalized at location A. IMPRESSION: Partially visualized large left supraclavicular mass (enriqueta conglomerate), new left lower lobe lung mass, multiple new left pulmonary nodules, large para-aort ic lymphadenopathy with 13.5 cm and 7.4 cm masses on either side, all compatibl e with worsening metastatic disease, as detailed above.
--- NOTE | ~2025-01-08 | CT_ITS ---
EXAM: CT brain wo con, CT cervical spine wo con - 01/08/2025 11:25 CDT HISTORY: 89 years old Male with L hand numbness (though after laying on it) COMPARISON: None available. PROCEDURE: CT of the head and cervical spine without contrast. Axial, sagittal and coronal reformat jewels planes were evaluated. Automatic exposure control was used for this study. FINDINGS: CT HEAD: BRAIN PARENCHYMA: No acute hemorrhage. No mass effect or herniation. Castillo-white matter differentiatio n is maintained. Mild chronic volume loss. Scattered hypodensities in subcortical and periventricular white matter, likely representing chronic microvascular ischemic changes in this age group. Atherosc lerotic calcification of the intracranial vessels is noted. VENTRICLES/ EXTRA-AXIAL SPACES: No hydrocephalus or extra-axial fluid collection. EXTRACRANIAL STRUCTURES: No calvarial fracture. CT CERVICAL SPINE: No acute fracture or subluxation. Straightening of cervical lordosis, likely positional or may be rel ated to muscle spasm. Multilevel degenerative changes of the cervical spine include varying degrees o f disk space narrowing, endplate osteophytosis as well as facet and uncal arthropathy. Prevertebral s oft tissues are within normal limits. Visualized lung apices are clear. IMPRESSION: 1. No evidence for acute intracranial hemorrhage or calvarial fracture. 2. No evidence for cervical spine fracture or traumatic subluxation. 3. Multilevel degenerative changes of the cervical spine. Reviewed, dictated and finalized at location A. IMPRESSION: 1. No evidence for acute intracranial hemorrhage or calvarial fracture. 2. No evidence for cervical spine fracture or traumatic subluxation. 3. Multilevel degenerative changes of the cervical spine.
--- OUTSIDE RECORDS SUMMARY | 2025-01-08 09:08 | XMS_ITS | Clinical Summary ---
Author Organization [facility] Address [address] [facility] [place] [address] Care Team Providers Care Brass Roller Name Role Phone David Redman MD Primary Care Provider [phone] Allergies Active Allergy Reactions Criticality Noted Date [...] (diabetes mellitus) 10/14/2017 Other specified hypothyroidism 10/14/2017 [place] cell tumor 10/14/2017 Encounters Date Type Department Care Team Description 01/03/2025 External Device Data [facility]STRACTION Provider, Abstract 01/02/2025 External Device Data [facility] ABSTRACTION Provider, [...] COVID-19 Vaccine ( season) 2024 INFLUENZA VACCINE (#1) 2025 04/03/2024, 2022 Insurance MEDICARE PART A AND B [facility] SUPP RX [employer] Medicare Part B Care Teams Brass Roller Relationship Specialty Start Date End Date David Redman MD [address] [place] [address] [place] [address] PCP - General Plastic Surgery 06/30/18
--- NOTE | 2025-01-08 09:51 | ECG_ITS ---
Test Date: 2025-01-08 10:10:40 Measurements Intervals [place] Rate: 56 P: 0 VT: 0 QRS: 60 QRSD: 126 T: 31 QT: 419 QTc: 406 Interpretive Statements ATRIAL FIBRILLATION WITH SLOW VENTRICULAR RESPONSE ST DEVIATION AND MODERATE T-WAVE ABNORMALITY, CONSIDER ANTERIOR ISCHEMIA [-0.1+ mV T-WAVE IN V3/V4] No previous ECG available for comparison Electronically Signed On 01-08-2025 11:28:39 CDT by Terry Knott M.D.
--- OUTSIDE RECORDS SUMMARY | 2025-01-08 09:56 | XMS_ITS | Clinical Summary ---
Author Organization [facility] Address [address] [facility] [place] [address] Care Team Providers Care Box Office Agent Name Role Phone David Redman MD Primary Care Provider [phone] Allergies Active Allergy Reactions Criticality Noted Date [...] (diabetes mellitus) 10/14/2017 Other specified hypothyroidism 10/14/2017 [place] cell tumor 10/14/2017 Encounters Date Type Department [...] [employer] Medicare Part B Care Teams Box Office Agent Relationship Specialty Start Date End Date David Redman MD [address] [facility] [address] [place] [address] PCP - General Plastic Surgery 06/30/18
[2025-01-08 10:06] LABS: Hematocrit 31.7 % (42.0-52.0); Hemoglobin 10.3 g/dL (14.0-18.0); Immature Granulocyte Percent A 0.3 % (0-0.5); Lymphocytes Absolute Auto 0.81 K/mm3 (0.9-3.2); Mean Corpuscular HGB Conc 32.5 g/dl (32-36); Mean Corpuscular Hemoglobin 27.2 pg (26-34); Mean Corpuscular Volume 83.9 fl (80-100); Nucleated Red Blood Cells Absolute Auto 0.000 K/mm3 (0.0-0.012); Nucleated Red Blood Cells Perc 0.0 % (0.0-0.2); Platelet Count Result 131 k/mm3 (150-375); Red Blood Count 3.78 M/mm3 (4.6-6.20); White Blood Count 3.3 K/mm3 (4.5-10.0)
[2025-01-08 10:23] LABS: Partial Thromboplastin Time 39.2 Seconds (22.3-36.8)
[2025-01-08 10:40] LABS: Alanine Aminotransferase 12 U/L (6-50); Albumin Level 3.7 g/dL (3.5-5.1); Alkaline Phosphatase 73 U/L (38-126); Anion Gap 9 mmol/L (4-12); Aspartate Amino Transferase 44 U/L (17-59); Bilirubin,Total 0.5 mg/dL (0.2-1.3); Blood Urea Nitrogen 27 mg/dL (9-20); Calcium 8.6 mg/dL (8.4-10.2); Carbon Dioxide 18 mmol/L (22-30); Chloride 103 mmol/L (98-107); Estimated CRCL calculation 32 ml/min; Estimated Glomerular Filt Rate 43; Glucose 88 mg/dL (65-110); Potassium 5.3 mmol/L (3.4-5.0); Sodium 130 mmol/L (137-145); Total Protein 8.5 g/dL (6.3-8.2)
--- NOTE | 2025-01-08 10:58 | ED_ITS ---
HPI - Weakness General Chief complaint: Weakness Stated complaint: exhaustion, abnormal labs Time Seen by Provider: 01/08/25 09:48 Source: patient and family (Son) Limitations: no limitations History of Present Illness HPI Narrative: Patient presents with report of generalized weakness. He has been feeling more sleepy lately some generally exhausted/tired. He does not want to eat or drink. The symptoms started after he had a bout of diarrhea. He has since taken 2 Imodium tablets x2; it does seem he has been able to have a bowel movement since though unclear. Denies any chest pain, shortness of breath, or abdominal pain. Patient was alone and son is worried given he is alone in the apartment. He also notes that he has a history of significant anemia requiring multiple blood transfusions when his hemoglobin was 4 point something and he had similar symptoms before 4-5 years ago. He reports that there are no unilateral symptoms to his weakness although he is experiencing some left he and pain and numbness although he does state that he slept on that hand last night and often experiences this symptom in the affected hand that he sleeps on (has been on the right before). Questionable slurred speech he states if he has been talking a lot. 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 Atkinson has changed him from Xarelto to warfarin in the of been working to try to titrate this effectively. He is currently being called in a new prescription to take 3 mg 4 times a week and continue taking 2.5 mg Wednesdays and Fridays. Related Data Home Medications ?Medication ?Instructions ?Recorded ?Confirmed ?Last Taken ?Type ascorbate calcium (vitamin C) 500 500 mg PO DAILY 07/27/19 01/08/25 01/02/21 History mg tablet cyanocobalamin (vitamin B-12) 500 500 mcg PO DAILY 07/27/19 01/08/25 01/02/21 History mcg lozenges multivitamin 1 tablet PO DAILY 07/27/19 01/08/25 01/02/21 History Allergies Allergy/AdvReac Type Severity Reaction Status Date / Time pantoprazole Allergy Mild Rash Verified 11/28/24 13:20 cephalexin Allergy Unknown rash Verified 11/28/24 13:20 Penicillins Allergy Unknown When he Verified 11/28/24 13:20 was younger. [facility] Past Medical History Medical History (Updated 01/09/25 @ 02:47 by Kamala Reilly DO) Lymphedema of both lower extremities Squamous cell cancer of skin of forearm Chronic hyponatremia Overactive bladder Thoracic aortic aneurysm without rupture Ascending aortic aneurysm 4.3 cm on CTA 10/15/2020 Mixed hyperlipidemia Hypothyroidism Type 2 diabetes mellitus [place] cell skin cancer of right upper arm Chronic anticoagulation Coumadin Atrial fibrillation Erosive esophagitis With acute GI bleed August 2020 Gastric peptic ulcer AK (actinic keratosis) 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 (~2010) Essential hypertension Morbid obesity ALLEN (obstructive sleep apnea) Intolerant to CPAP Pyogenic granuloma Smoking Ulcerative colitis without complications Surgical History Surgical History (Updated 01/08/25 @ 20:52 by Kamala Reilly DO) History of repair of right rotator cuff History of right hip replacement (2012) History of excision of lesion excision 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 His August 2023. 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 He smoked up to 1 pack of cigarettes per day from the time he is a young man up until age 87 The patient states he stopped smoking about 2 years ago. He continues to uses nicotine candy. He doesn't use any alcohol, marijuana or illicit drugs. Code status: DNR/DNI per patient request His surrogate decision maker: Son and daughter Smoking packs per day: 1 Smoking cigarettes per day: 20.0 Years smoked: 50 Smoking pack-years: 50.00 Smoking status: Former smoker Tobacco type: cigarettes Second hand tobacco smoke exposure: No Smoking end date: 06/21/21 Alcohol intake: never Substance use: never Substance use type: does not use Do You Feel Safe in your Home?: Yes Lack of Transportation: No Lack of Food: Never True Current Housing: I Have Housing Concerned About Future Housing: No Difficulty Paying Gas/Electric Bills: No Difficulty Paying for Meds: No Currently Unemployed: No Education: High School Diploma/GED Difficulty w/ Childcare or Family Care: No Living arrangements: with family Occupation/Education: retired Gender identity (if verbalized by the patient): Male Sexual Orientation (if Verbalized by the Patient): Straight or Heterosexual Spiritual care concerns: No Exam 2 Narrative: GENERAL: well-nourished, and in no acute distress. HEAD: Normocephalic, atraumatic. EYES: Non injected, non icteric ENT: Nares clear, no rhinorrhea or epistaxis. Gross auditory acuity intact. NECK: Supple. No meningismus. CHEST: Speaking in full sentences. No respiratory distress. HEART: Regular rate and rhythm. . ABDOMEN: Soft, nondistended. No rigidity or guarding. Not peritoneal EXTREMITIES: Normal range of motion. No lower extremity edema. SKIN: Warm, dry. Well healed scar RUE. Various skin lesions on forehead/scalp, do not appear infected. NEURO: No focal deficits. Alert and oriented. Answering questions. Following commands. Normal speech without aphasia or dysarthria. PSYCH: Normal mood and affect. Course Vital Signs Vital signs: Vital Signs Pulse Rate 66 01/08/25 09:33 Respiratory Rate 15 01/08/25 09:33 Blood Pressure 96/58 L 01/08/25 09:33 Pulse Oximetry 100 01/08/25 09:33 Oxygen Delivery Room Air 01/08/25 09:33 Temperature 97.5 F L 01/10/25 13:26 Pulse Rate 62 01/10/25 13:26 Respiratory Rate 18 01/10/25 13:26 Blood Pressure 92/52 L 01/10/25 13:26 Pulse Oximetry 97 01/10/25 13:26 Oxygen Delivery Autopap 01/09/25 23:08 Fraction of Inspired Oxygen 21 01/09/25 23:08 MDM - Weakness MDM Narrative Medical decision making narrative: Patient presents with concern for weakness , exhaustion, feeling tired and with decreased appetite/intake. In the emergency department he is afebrile with VS notable for hypotension. EKG shows slow afib; he has a hx of afib, not new diagnosis. Also considered etiologies of AFib with slow ventricular response in addition to the ones listed below such as: Alcohol , medication overdose, SSS, AV enriqueta disease, heart failure, electrolyte abnormalities, hyperthyroid, lung disease He has pancytopenia. Anemia has been variable per review of the EMR. Low side of normal for WBC previously and the thrombocytopenia is also new, though mild. He appears to have an YULIET. Patient's creatinine previously was at the same level however that was also an abnormality from his baseline per review of the EMR. Will initially be judicious with fluid administration as obtain more information, starting with 500cc. Very mild hyperkalemia. Calcium carbonate given. Will also give 1 dose of dextrose with a half dose (5U, renal dosing) insulin and 1/2 amp of bicarb given patient's CO2 slightly abnormal though not frankly acidotic (>15). He has chronic hyponatremia, stable from previous. Lactic acid slightly elevated. CRP ordered as are blood cultures. TSH is abnormal. Reflex T4 and T3 are ordered. INR is 2.4. Patient remains hypotensive; he does have mild CHF both per CXR report and BNP elevated so will have to be judicious with fluids, addl 500cc ordered. Sepsis trigger flagged. Less than 30ml/kg crystalloid bolus was ordered initially because it at this time is deemed that it may be detrimental or harmful for the patient. There was questionable infection chest x-ray thus given his degree of illness, will give vancomycin, azithromycin for atypical coverage, and levofloxacin rather than Rocephin given his listed allergy to cephalexin. These are ordered as per ED sepsis order set. T3 is also low but T4 normal. Remains hypotensive, additional 500cc ordered. CT as below. Discussed patient's workup with him. He states other than the skin cancer with extensive lymph node resection on the right axillae/arm several years ago, no other cancer. Patient verifies understanding for need for admission and he is in agreement. Patient will require PT OT evaluation for consideration of placement given his generalized weakness and fall risk. We discussed code status and he did confirm that he is full code. Will re-evaluating patient at this time it is noticed that his BP cuff on the left (limited to this extremity given LN dissection) has been improperly placed - upside down and with the indicator nearly at his axilla. With this change, multiple repeat BP measurements are observed and he remains slightly hypotensive although markedly improved from the readings had been going on previously. MAPs are >70 on several readings including most recently 95/60. I did request that the nurse document some of these. Discussed patient with on-call hospitalist MAIKOL Murphy who accepts admission. Patient will go to the IMU given his questionable hemodynamics but I believe that he is fluid responsive and, due to a variety of issues, he has technically only received 1L of fluids thus far. Although there was concern for failure initially, this is not indicated based on his CT imaging. He does not appear volume overloaded on exam either as he continues to remain appearing dry. Additional 1 L fluids is ordered. He otherwise seems like he has been responsive to fluids. Patient's son has arrived. I was notified that there was discussion that I had refused to discuss with patient/family but this is not the case - son had gone home when I had had extensive conversation earlier. I talked with son about work up and findings with patient family and expressed apologies for the misunderstanding. Patient's BP has been holding steady, with multiple MAPs >75mmHg at this time. Differential Diagnosis Differential diagnosis: Likely acute myocardial infarction, anemia, hypoglycemia, hypothyroidism, rhabdomyolysis, sepsis, dehydration and other (failure to thrive; infection; other electrolyte abnormalities) Lab Data Attestation: I reviewed the patient's lab results. 01/08/25 09:55 01/08/25 09:55 Labs: Lab Results 01/08/25 01/08/25 01/08/25 Range/Units 09:55 09:55 09:55 WBC 3.3 L (4.5-10.0) K/mm3 RBC 3.78 L (4.6-6.20) M/mm3 Hgb 10.3 L (14.0-18.0) g/dL Hct 31.7 L (42.0-52.0) % MCV 83.9 (80-100) fl MCH 27.2 (26-34) pg MCHC 32.5 (32-36) g/dl RDW 14.7 H (11.5-14.5) % Plt Count 131 L (150-375) k/mm3 MPV 9.3 (7.4-10.4) fl Immature Gran % (Auto) 0.3 (0-0.5) % Neut % (Auto) 56.5 (45.5-73.1) % Lymph % (Auto) 24.7 (18.3-44.2) % [place] % (Auto) 14.6 H (2.6-8.5) % Eos % (Auto) 2.7 (0-4.4) % Baso % (Auto) 1.2 (0.2-1.2) % Lymph # (Auto) 0.81 L (0.9-3.2) K/mm3 [place] # (Auto) 0.5 (0.1-0.6) K/mm3 Eos # (Auto) 0.1 (0-0.3) K/mm3 Baso # (Auto) 0.0 (0.0-0.1) K/mm3 Abs Immat Gran (auto) 0.01 (0.00-0.031) K/mm3 Absolute Neuts (auto) 1.9 (1.3-6.7) K/mm3 Absolute Nucleated RBC 0.000 (0.0-0.012) K/mm3 Nucleated RBC % 0.0 (0.0-0.2) % PT 25.4 H D (11.1-14.7) Seconds INR 2.4 APTT 39.2 H (22.3-36.8) Seconds Sodium 130 L (137-145) mmol/L Potassium 5.3 H (3.4-5.0) mmol/L Chloride 103 (98-107) mmol/L Carbon Dioxide 18 L (22-30) mmol/L Anion Gap 9 (4-12) mmol/L BUN 27 H (9-20) mg/dL Creatinine 1.53 H (0.7-1.3) mg/dL Estim Creat Clear Calc 32 ml/min Estimated GFR 43 L (59 - ) Glucose 88 (65-110) mg/dL Lactic Acid (0.7-2.0) mmol/L Calcium 8.6 (8.4-10.2) mg/dL Magnesium 1.9 Cancelled (1.6-2.3) mg/dL Total Bilirubin 0.5 (0.2-1.3) mg/dL AST 44 (17-59) U/L ALT 12 (6-50) U/L Alkaline Phosphatase 73 (38-126) U/L Total Creatine Kinase 60 Cancelled (55-170) U/L Troponin I < 0.012 (0.000-0.034) ng/mL C-Reactive Protein (<1.0) mg/dL NT-Pro-B Natriuret Pep (19.9-100) pg/mL Total Protein (6.3-8.2) g/dL Albumin (3.5-5.1) g/dL TSH (0.465-4.680) uIU/mL Free T4 (0.78-2.19) ng/dL Free T3 pg/mL Urine Color (Yellow) Urine Appearance (Clear) Urine pH (5.0-9.0) Ur Specific [place] (1.001-1.035) Urine Protein (Negative) mg/dL Urine Glucose (UA) (Negative) mg/dL Urine Ketones (Negative) mg/dL Ur Blood (Man) (Negative) Urine Nitrate (Negative) Urine Bilirubin (Negative) Urine Urobilinogen (<2.0) mg/dL Add Ur Microanalysis Leukocyte Esterase Rfl (Negative) DARLENE/UL Urine RBC (0-2) /hpf Urine WBC (0-3) /hpf Ur Squamous Epith Cells (Few) /hpf Urine Bacteria /hpf Urine Casts Hyaline Casts (None) /lpf Urine Opiates Screen (Negative) Urine Methadone Screen (Negative) Ur Barbiturates Screen (Negative) Ur Phencyclidine Scrn (Negative) Ur Amphetamine Screen (Negative) U Benzodiazepines Scrn (Negative) Urine Cocaine Screen (Negative) U Cannabinoids Screen (Negative) Ethyl Alcohol (<10) mg/dL Influenza A (RT-PCR) (Negative) Influenza B (RT-PCR) (Negative) RSV (RT-PCR) (Negative) SARS-CoV-2 RNA (RT-PCR) (Negative) 01/08/25 01/08/25 01/08/25 Range/Units 09:55 09:55 11:06 WBC (4.5-10.0) K/mm3 RBC (4.6-6.20) M/mm3 Hgb (14.0-18.0) g/dL Hct (42.0-52.0) % MCV (80-100) fl MCH (26-34) pg MCHC (32-36) g/dl RDW (11.5-14.5) % Plt Count (150-375) k/mm3 MPV (7.4-10.4) fl Immature Gran % (Auto) (0-0.5) % Neut % (Auto) (45.5-73.1) % Lymph % (Auto) (18.3-44.2) % [place] % (Auto) (2.6-8.5) % Eos % (Auto) (0-4.4) % Baso % (Auto) (0.2-1.2) % Lymph # (Auto) (0.9-3.2) K/mm3 [place] # (Auto) (0.1-0.6) K/mm3 Eos # (Auto) (0-0.3) K/mm3 Baso # (Auto) (0.0-0.1) K/mm3 Abs Immat Gran (auto) (0.00-0.031) K/mm3 Absolute Neuts (auto) (1.3-6.7) K/mm3 Absolute Nucleated RBC (0.0-0.012) K/mm3 Nucleated RBC % (0.0-0.2) % PT (11.1-14.7) Seconds INR APTT (22.3-36.8) Seconds Sodium (137-145) mmol/L Potassium (3.4-5.0) mmol/L Chloride (98-107) mmol/L Carbon Dioxide (22-30) mmol/L Anion Gap (4-12) mmol/L BUN (9-20) mg/dL Creatinine (0.7-1.3) mg/dL Estim Creat Clear Calc ml/min Estimated GFR (59 - ) Glucose (65-110) mg/dL Lactic Acid 2.3 H (0.7-2.0) mmol/L Calcium (8.4-10.2) mg/dL Magnesium (1.6-2.3) mg/dL Total Bilirubin (0.2-1.3) mg/dL AST (17-59) U/L ALT (6-50) U/L Alkaline Phosphatase (38-126) U/L Total Creatine Kinase (55-170) U/L Troponin I Cancelled (0.000-0.034) ng/mL C-Reactive Protein 0.8 (<1.0) mg/dL NT-Pro-B Natriuret Pep 3990 H (19.9-100) pg/mL Total Protein 8.5 H (6.3-8.2) g/dL Albumin 3.7 (3.5-5.1) g/dL TSH 0.117 L Cancelled (0.465-4.680) uIU/mL Free T4 (0.78-2.19) ng/dL Free T3 pg/mL Urine Color (Yellow) Urine Appearance (Clear) Urine pH (5.0-9.0) Ur Specific [place] (1.001-1.035) Urine Protein (Negative) mg/dL Urine Glucose (UA) (Negative) mg/dL Urine Ketones (Negative) mg/dL Ur Blood (Man) (Negative) Urine Nitrate (Negative) Urine Bilirubin (Negative) Urine Urobilinogen (<2.0) mg/dL Add Ur Microanalysis Leukocyte Esterase Rfl (Negative) DARLENE/UL Urine RBC (0-2) /hpf Urine WBC (0-3) /hpf Ur Squamous Epith Cells (Few) /hpf Urine Bacteria /hpf Urine Casts Hyaline Casts (None) /lpf Urine Opiates Screen (Negative) Urine Methadone Screen (Negative) Ur Barbiturates Screen (Negative) Ur Phencyclidine Scrn (Negative) Ur Amphetamine Screen (Negative) U Benzodiazepines Scrn (Negative) Urine Cocaine Screen (Negative) U Cannabinoids Screen (Negative) Ethyl Alcohol < 10 (<10) mg/dL Influenza A (RT-PCR) Negative (Negative) Influenza B (RT-PCR) Negative (Negative) RSV (RT-PCR) Negative (Negative) SARS-CoV-2 RNA (RT-PCR) Negative (Negative) 01/08/25 01/08/25 01/08/25 Range/Units 11:14 12:08 12:43 WBC (4.5-10.0) K/mm3 RBC (4.6-6.20) M/mm3 Hgb (14.0-18.0) g/dL Hct (42.0-52.0) % MCV (80-100) fl MCH (26-34) pg MCHC (32-36) g/dl RDW (11.5-14.5) % Plt Count (150-375) k/mm3 MPV (7.4-10.4) fl Immature Gran % (Auto) (0-0.5) % Neut % (Auto) (45.5-73.1) % Lymph % (Auto) (18.3-44.2) % [place] % (Auto) (2.6-8.5) % Eos % (Auto) (0-4.4) % Baso % (Auto) (0.2-1.2) % Lymph # (Auto) (0.9-3.2) K/mm3 [place] # (Auto) (0.1-0.6) K/mm3 Eos # (Auto) (0-0.3) K/mm3 Baso # (Auto) (0.0-0.1) K/mm3 Abs Immat Gran (auto) (0.00-0.031) K/mm3 Absolute Neuts (auto) (1.3-6.7) K/mm3 Absolute Nucleated RBC (0.0-0.012) K/mm3 Nucleated RBC % (0.0-0.2) % PT (11.1-14.7) Seconds INR APTT (22.3-36.8) Seconds Sodium (137-145) mmol/L Potassium (3.4-5.0) mmol/L Chloride (98-107) mmol/L Carbon Dioxide (22-30) mmol/L Anion Gap (4-12) mmol/L BUN (9-20) mg/dL Creatinine (0.7-1.3) mg/dL Estim Creat Clear Calc ml/min Estimated GFR (59 - ) Glucose (65-110) mg/dL Lactic Acid (0.7-2.0) mmol/L Calcium (8.4-10.2) mg/dL Magnesium (1.6-2.3) mg/dL Total Bilirubin (0.2-1.3) mg/dL AST (17-59) U/L ALT (6-50) U/L Alkaline Phosphatase (38-126) U/L Total Creatine Kinase (55-170) U/L Troponin I (0.000-0.034) ng/mL C-Reactive Protein (<1.0) mg/dL NT-Pro-B Natriuret Pep (19.9-100) pg/mL Total Protein (6.3-8.2) g/dL Albumin (3.5-5.1) g/dL TSH (0.465-4.680) uIU/mL Free T4 1.95 (0.78-2.19) ng/dL Free T3 pg/mL Cancelled 2.17 L Urine Color Yellow (Yellow) Urine Appearance Clear (Clear) Urine pH 5.5 (5.0-9.0) Ur Specific [place] 1.017 (1.001-1.035) Urine Protein Trace (Negative) mg/dL Urine Glucose (UA) Negative (Negative) mg/dL Urine Ketones Negative (Negative) mg/dL Ur Blood (Man) Negative (Negative) Urine Nitrate Negative (Negative) Urine Bilirubin Negative (Negative) Urine Urobilinogen 0.2 (<2.0) mg/dL Add Ur Microanalysis Reviewed Leukocyte Esterase Rfl Negative (Negative) DARLENE/UL Urine RBC 0-2 (0-2) /hpf Urine WBC 0-5 (0-3) /hpf Ur Squamous Epith Cells None seen (Few) /hpf Urine Bacteria None seen /hpf Urine Casts 6-10 Hyaline Casts Present (None) /lpf Urine Opiates Screen Negative (Negative) Urine Methadone Screen Negative (Negative) Ur Barbiturates Screen Negative (Negative) Ur Phencyclidine Scrn Negative (Negative) Ur Amphetamine Screen Negative (Negative) U Benzodiazepines Scrn Negative (Negative) Urine Cocaine Screen Negative (Negative) U Cannabinoids Screen Negative (Negative) Ethyl Alcohol (<10) mg/dL Influenza A (RT-PCR) (Negative) Influenza B (RT-PCR) (Negative) RSV (RT-PCR) (Negative) SARS-CoV-2 RNA (RT-PCR) (Negative) 01/08/25 Range/Units 16:24 WBC (4.5-10.0) K/mm3 RBC (4.6-6.20) M/mm3 Hgb (14.0-18.0) g/dL Hct (42.0-52.0) % MCV (80-100) fl MCH (26-34) pg MCHC (32-36) g/dl RDW (11.5-14.5) % Plt Count (150-375) k/mm3 MPV (7.4-10.4) fl Immature Gran % (Auto) (0-0.5) % Neut % (Auto) (45.5-73.1) % Lymph % (Auto) (18.3-44.2) % [place] % (Auto) (2.6-8.5) % Eos % (Auto) (0-4.4) % Baso % (Auto) (0.2-1.2) % Lymph # (Auto) (0.9-3.2) K/mm3 [place] # (Auto) (0.1-0.6) K/mm3 Eos # (Auto) (0-0.3) K/mm3 Baso # (Auto) (0.0-0.1) K/mm3 Abs Immat Gran (auto) (0.00-0.031) K/mm3 Absolute Neuts (auto) (1.3-6.7) K/mm3 Absolute Nucleated RBC (0.0-0.012) K/mm3 Nucleated RBC % (0.0-0.2) % PT (11.1-14.7) Seconds INR APTT (22.3-36.8) Seconds Sodium (137-145) mmol/L Potassium (3.4-5.0) mmol/L Chloride (98-107) mmol/L Carbon Dioxide (22-30) mmol/L Anion Gap (4-12) mmol/L BUN (9-20) mg/dL Creatinine (0.7-1.3) mg/dL Estim Creat Clear Calc ml/min Estimated GFR (59 - ) Glucose (65-110) mg/dL Lactic Acid 1.1 (0.7-2.0) mmol/L Calcium (8.4-10.2) mg/dL Magnesium (1.6-2.3) mg/dL Total Bilirubin (0.2-1.3) mg/dL AST (17-59) U/L ALT (6-50) U/L Alkaline Phosphatase (38-126) U/L Total Creatine Kinase (55-170) U/L Troponin I (0.000-0.034) ng/mL C-Reactive Protein (<1.0) mg/dL NT-Pro-B Natriuret Pep (19.9-100) pg/mL Total Protein (6.3-8.2) g/dL Albumin (3.5-5.1) g/dL TSH (0.465-4.680) uIU/mL Free T4 (0.78-2.19) ng/dL Free T3 pg/mL Urine Color (Yellow) Urine Appearance (Clear) Urine pH (5.0-9.0) Ur Specific [place] (1.001-1.035) Urine Protein (Negative) mg/dL Urine Glucose (UA) (Negative) mg/dL Urine Ketones (Negative) mg/dL Ur Blood (Man) (Negative) Urine Nitrate (Negative) Urine Bilirubin (Negative) Urine Urobilinogen (<2.0) mg/dL Add Ur Microanalysis Leukocyte Esterase Rfl (Negative) DARLENE/UL Urine RBC (0-2) /hpf Urine WBC (0-3) /hpf Ur Squamous Epith Cells (Few) /hpf Urine Bacteria /hpf Urine Casts Hyaline Casts (None) /lpf Urine Opiates Screen (Negative) Urine Methadone Screen (Negative) Ur Barbiturates Screen (Negative) Ur Phencyclidine Scrn (Negative) Ur Amphetamine Screen (Negative) U Benzodiazepines Scrn (Negative) Urine Cocaine Screen (Negative) U Cannabinoids Screen (Negative) Ethyl Alcohol (<10) mg/dL Influenza A (RT-PCR) (Negative) Influenza B (RT-PCR) (Negative) RSV (RT-PCR) (Negative) SARS-CoV-2 RNA (RT-PCR) (Negative) Imaging Data Radiologist's impression: Impressions Cervical Spine CT 01/08/25 11:50 IMPRESSION: 1. No evidence for acute intracranial hemorrhage or calvarial fracture. 2. No evidence for cervical spine fracture or traumatic subluxation. 3. Multilevel degenerative changes of the cervical spine. Head CT 01/08/25 11:50 IMPRESSION: 1. No evidence for acute intracranial hemorrhage or calvarial fracture. 2. No evidence for cervical spine fracture or traumatic subluxation. 3. Multilevel degenerative changes of the cervical spine. Chest X-Ray 01/08/25 12:01 IMPRESSION: Mild CHF. Superimposed infection cannot be excluded. Clinical correlation is recommended. Chest/Abdomen/Pelvis CT 01/08/25 13:21 IMPRESSION: Partially visualized large left supraclavicular mass (enriqueta conglomerate), new left lower lobe lung mass, multiple new left pulmonary nodules, large para- aortic lymphadenopathy with 13.5 cm and 7.4 cm masses on either side, all compatible with worsening metastatic disease, as detailed above. ECG Data EKG #1: Attestation: I personally reviewed and interpreted this ECG as follows: ECG completion date: 01/08/25 ECG completion time: 10:10 Interpretation: No distinct are appreciable P-waves. Rate 56 beats per minute. Irregular variation between QRS complexes thus also atrial fibrillation with slow ventricular response. QRS 126. QT/QTC 419/410. You does appear to be intraventricular conduction delay based on the appearance in V1 V2 and V3. Discharge Plan Discharge Clinical Impression: Generalized weakness, Adult failure to thrive, Pancytopenia, YULIET (acute kidney injury), Hyperkalemia, Chronic hyponatremia, Abnormal thyroid function test, Supraclavicular mass, Multiple lung nodules Patient Disposition: Still a Patient Condition: Stable
[2025-01-08 11:29] LABS: INR 2.4; Prothrombin Time 25.4 Seconds (11.1-14.7)
[2025-01-08 11:41] LABS: CRP 0.8 mg/dL (<1.0)
[2025-01-08 11:44] LABS: Creatine Kinase 60 U/L (55-170); Magnesium 1.9 mg/dL (1.6-2.3)
[2025-01-08 11:50] LABS: Influenza A QL RT-PCR Negative (Negative); Influenza B QL RT-PCR Negative (Negative); RSV RNA, RT-PCR Negative (Negative); SARS-CoV-2 RNA PCR Negative (Negative)
[2025-01-08 11:56] LABS: NT Pro B Type Natriuretic Pept 3990 pg/mL (19.9-100)
[2025-01-08 11:58] LABS: Troponin I < 0.012 ng/mL (0.000-0.034)
[2025-01-08] MEDS: INSULIN HUMAN REGULAR (*BKC) 100 UNITS/ML IV PUSH (11:59)
[2025-01-08] MEDS: SODIUM BICARBONATE 8.4% 50 MEQ/50 ML SYRINGE IV PUSH (12:01)
[2025-01-08] MEDS: DEXTROSE 50% 25 GM/50 ML SYRINGE IV PUSH (12:01)
[2025-01-08] MEDS: SODIUM CHLORIDE 0.9% IV 500 ML 999 ML IV CONT ×2 (12:01→13:42)
[2025-01-08 12:16] LABS: Thyroid Stimulating Hormone 0.117 uIU/mL (0.465-4.680)
[2025-01-08] MEDS: CALCIUM GLUCONATE 1,000 MG/10 ML VIAL 1000 MG IV PUSH (12:25)
[2025-01-08 12:31] LABS: Add Urine Microscopic? YES; Appearance Urine Clear (Clear); Glucose Urine UA Negative (Negative); Leukocyte Esterase Ur Negative LEU/UL (Negative); Need Manual Microscopic Reviewed; Nitrate Urine Negative (Negative); Specific Grav Ur 1.017 (1.001-1.035)
[2025-01-08 13:13] LABS: Free T3 2.17 pg/mL (2.34-5.61)
[2025-01-08 13:17] LABS: Cannabinoid Screen Urine Negative (Negative)
[2025-01-08 13:34] LABS: Free T4 Free Thyroxine 1.95 ng/dL (0.78-2.19)
[2025-01-08] MEDS: levoFLOXacin 750 MG/D5W 150 ML 750 MG/150 ML BAG 100 MG IVPB (13:44)
[2025-01-08] MEDS: AZITHROMYCIN 500 MG TABLET PO (13:49)
[2025-01-08] MEDS: VANCOMYCIN 1,250 MG/NS 250 ML 1,250 MG/250 ML BAG 166.67 MG IVPB (15:46)
--- NOTE | 2025-01-08 19:43 | ADMGEN ---
This patient, Kole Méndez, was admitted to IMU Room 203-01. Patient/family oriented to hospital policies and general routines including ID bracelet, bed and alarms, visiting hours, pain management, procedures, bathroom and other care routines, personal items, smoking policy, room service/diet, and visiting hours. Information on how to activate the Rapid Response Team has been discussed. Patient/Family are encouraged to report perceived risks to care and to ask questions if they do not understand what they are told or what they should do.
--- NOTE | 2025-01-08 20:29 | P.HP_ITS ---
H&P: HPI History of Present Illness Date/Time: 01/08/25 20:29 Chief Complaint: Generalized weakness decreased appetite Narrative: Extremely pleasant 89-year-old male with a past medical history of type 2 diabetes mellitus, hypothyroidism, hypertension, DVT, atrial fibrillation on chronic anticoagulation with Coumadin, chronic kidney disease stage 3 and Maud cell cancer originally diagnosed 2017 (among other comorbidities) who presented to the ER in the company of family due to generalized weakness and decreased appetite. Patient family reported that symptoms started few days ago after the patient had bout of loose stools. Patient denies any nausea or vomiting he reports he just had a poor appetite. He states that he has been wheelchair dependent for a long time but is now become so weak that he is having difficulty even rolling over in bed unassisted. He complains of a cyst on his buttock that is painful but it is been there for quite some time. He denies any shortness of breath or other areas of pain. He denies difficulty with urination. On review of patient's chart 1 year ago at this time the patient weighed at least 10 kg more than he does currently. He states that a few months ago his weight was 222 lb. Currently he is around 195 lb. The back in 2022 the patient was around 300 lb. He reports that he quit smoking several years ago but still uses nicotine lozenges. He reports that he technically uses more nicotine lozenges a day than are recommended. 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 Patient received treatment for hyperkalemia with insulin, calcium, dextrose, sodium bicarbonate and 2.5 L of fluid bolus for 30 mL/kilos total volume. He was initially given empiric antibiotic therapy for possible pneumonia but imaging did not end of demonstrating pneumonia. Blood cultures were obtained and are pending. Patient was admitted to IMU for further evaluation. Source of information is from patient who is a relatively good historian with supplementation from review of past medical records. Review of Systems 2 Review of Systems: 12 systems were reviewed with pertinent positives and negatives per HPI. Except as documented in the HPI, all other systems were reviewed and are negative. 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 Chronic anticoagulation Coumadin Atrial fibrillation Erosive esophagitis With acute GI bleed August 2020 Gastric peptic ulcer AK (actinic keratosis) 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 (~2010) Essential hypertension Morbid obesity ALLEN (obstructive sleep apnea) Intolerant to CPAP Pyogenic granuloma Smoking Ulcerative colitis without complications Surgical History Surgical History (Updated 01/08/25 @ 20:52 by Kamala Reilly DO) History of repair of right rotator cuff History of right hip replacement (2012) History of excision of lesion excision metastatic Maud cell cancer right axilla on 01/09/21 History of surgery on arm History of esophagogastroduodenoscopy (EGD) 2020 due to acute GI bleed H/O colonoscopy with polypectomy Family History Family History Mother Family history of lung cancer Family history of malignant neoplasm of breast in first degree relative Father Family history of throat cancer Other Family history of arthritis Family history of malignant neoplasm Hypertension Social History Social History (Updated 01/08/25 @ 20:56 by Kamala Reilly DO) Social History: The patient lives alone. His August 2023. 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 He smoked up to 1 pack of cigarettes per day from the time he is a young man up until age 87 The patient states he stopped smoking about 2 years ago. He continues to uses nicotine candy. He doesn't use any alcohol, marijuana or illicit drugs. Code status: DNR/DNI per patient request His surrogate decision maker: Son and daughter Smoking packs per day: 1 Smoking cigarettes per day: 20.0 Years smoked: 50 Smoking pack-years: 50.00 Smoking status: Former smoker Tobacco type: cigarettes Second hand tobacco smoke exposure: No Smoking end date: 06/21/21 Alcohol intake: never Substance use: never Substance use type: does not use Do You Feel Safe in your Home?: Yes Lack of Transportation: No Lack of Food: Never True Current Housing: I Have Housing Concerned About Future Housing: No Difficulty Paying Gas/Electric Bills: No Difficulty Paying for Meds: No Currently Unemployed: No Education: High School Diploma/GED Difficulty w/ Childcare or Family Care: No Living arrangements: with family Occupation/Education: retired Gender identity (if verbalized by the patient): Male Sexual Orientation (if Verbalized by the Patient): Straight or Heterosexual Spiritual care concerns: Yes Meds Home Medications and Allergies Home Medications ?Medication ?Instructions ?Recorded ?Confirmed ?Type ascorbate calcium (vitamin C) 500 500 mg PO DAILY 07/27/19 01/08/25 History mg tablet cyanocobalamin (vitamin B-12) 500 500 mcg PO DAILY 07/27/19 01/08/25 History mcg lozenges multivitamin 1 tablet PO DAILY 07/27/19 01/08/25 History sulfasalazine 500 mg 1.5 g (3 x 500 mg) PO BID #180 tabs 02/15/24 01/08/25 Rx tablet,delayed release losartan 50 mg tablet See Rx Instructions .Route 08/15/24 01/08/25 Rx .COMPLEX #90 tabs warfarin 2.5 mg tablet 2.5 mg PO DAILY #30 tabs 10/20/24 01/08/25 Rx pravastatin 10 mg tablet See Rx Instructions .Route 10/30/24 01/08/25 Rx .COMPLEX #90 tabs metformin 500 mg tablet 500 mg PO BID #180 tabs 10/31/24 01/08/25 Rx levothyroxine 112 mcg tablet See Rx Instructions .Route 11/10/24 01/08/25 Rx .COMPLEX #90 tabs warfarin 3 mg tablet 3 mg PO DAILY #30 tabs 01/05/25 01/08/25 Rx Allergies Allergy/AdvReac Type Severity Reaction Status Date / Time pantoprazole Allergy Mild Rash Verified 11/28/24 13:20 cephalexin Allergy Unknown rash Verified 11/28/24 13:20 Penicillins Allergy Unknown When he Verified 11/28/24 13:20 was younger. Vital Signs Vital Signs - 24 hr 01/08/25 09:33 01/08/25 10:01 01/08/25 10:02 Temperature Pulse Rate 66 69 65 Respiratory Rate 15 16 15 Blood Pressure 96/58 L 102/69 Pulse Oximetry 100 99 100 Oxygen Delivery Room Air 01/08/25 10:15 01/08/25 10:16 01/08/25 10:56 Temperature Pulse Rate 56 L 56 L 54 L Respiratory Rate 12 12 11 L Blood Pressure 93/50 L Pulse Oximetry 100 99 99 Oxygen Delivery 01/08/25 11:00 01/08/25 11:01 01/08/25 11:18 Temperature 97.4 F L Pulse Rate 51 L 51 L 70 Respiratory Rate 11 L 15 23 H Blood Pressure 83/42 L Pulse Oximetry 98 97 98 Oxygen Delivery 01/08/25 11:44 01/08/25 11:46 01/08/25 12:00 Temperature Pulse Rate 54 L 55 L 65 Respiratory Rate 12 13 29 H Blood Pressure Pulse Oximetry 100 100 100 Oxygen Delivery 01/08/25 12:21 01/08/25 12:34 01/08/25 12:58 Temperature Pulse Rate 52 L 62 58 L Respiratory Rate 16 18 13 Blood Pressure Pulse Oximetry 91 100 Oxygen Delivery 01/08/25 12:59 01/08/25 13:01 01/08/25 13:18 Temperature Pulse Rate 60 61 65 Respiratory Rate 14 12 21 H Blood Pressure 102/60 Pulse Oximetry 100 Oxygen Delivery 01/08/25 13:30 01/08/25 13:39 01/08/25 13:45 Temperature Pulse Rate 63 57 L 63 Respiratory Rate 14 16 14 Blood Pressure 91/55 L 92/51 L Pulse Oximetry Oxygen Delivery 01/08/25 13:46 01/08/25 14:00 01/08/25 14:01 Temperature Pulse Rate 56 L 55 L 54 L Respiratory Rate 14 11 L 16 Blood Pressure 85/46 L Pulse Oximetry Oxygen Delivery 01/08/25 14:17 01/08/25 14:30 01/08/25 14:31 Temperature Pulse Rate 57 L 55 L 53 L Respiratory Rate 14 16 18 Blood Pressure 90/54 L Pulse Oximetry 96 95 Oxygen Delivery 01/08/25 14:48 01/08/25 15:06 01/08/25 15:22 Temperature Pulse Rate 55 L 64 58 L Respiratory Rate 13 16 14 Blood Pressure Pulse Oximetry 98 98 97 Oxygen Delivery 01/08/25 15:30 01/08/25 15:31 01/08/25 15:45 Temperature Pulse Rate 55 L 60 60 Respiratory Rate 15 10 L 16 Blood Pressure 88/49 L 100/56 L Pulse Oximetry 100 99 99 Oxygen Delivery 01/08/25 15:46 01/08/25 15:53 01/08/25 15:59 Temperature Pulse Rate 59 L 60 63 Respiratory Rate 14 14 14 Blood Pressure 101/54 L 101/64 Pulse Oximetry 98 99 99 Oxygen Delivery 01/08/25 16:01 01/08/25 16:15 01/08/25 16:16 Temperature Pulse Rate 61 60 59 L Respiratory Rate 18 13 15 Blood Pressure 93/61 L Pulse Oximetry 99 99 100 Oxygen Delivery 01/08/25 16:30 01/08/25 16:31 01/08/25 16:55 Temperature Pulse Rate 56 L 59 L 60 Respiratory Rate 11 L 9 L 10 L Blood Pressure 97/58 L Pulse Oximetry 97 98 98 Oxygen Delivery 01/08/25 17:02 01/08/25 18:58 01/08/25 20:00 Temperature 97.0 F L 97.6 F Pulse Rate 64 86 98 Respiratory Rate 16 18 18 Blood Pressure 131/60 112/66 Pulse Oximetry 100 98 100 Oxygen Delivery Exam 2 Narrative: Weight 89.8 kg BMI 28.4 Const: Other: Cachectic, no acute distress, frail, elderly HENMT: Other: Head is normocephalic atraumatic, temporal wasting noted, mucous membranes are dry, no posterior oral pharyngeal erythema, upper dentures in place, edentulous in lower jaw patient reports that his dentures do not fit. Eyes: Other: No conjunctival pallor, no scleral icterus, pupils are equal and reactive Neck: Other: No JVD, large palpable mass in left supraclavicular region Resp: Other: Clear to auscultation bilaterally, no increased work of breathing Cardio: Other: Irregularly irregular, rate controlled, 2+ bilateral radial pedal pulses GI: Other: Soft, nontender, nondistended, positive bowel sounds Skin: Other: Generalized pallor, non jaundice, chronic lymphedema changes bilateral lower extremities Neuro: Other: Alert orient x4, speech is clear and fluent, no facial asymmetry, no localizing neurologic deficits noted during the course of conversation Extrem: Other: 4/5 checker cashier strength on the left, 5/5 checker cashier strength on the right, patient moves both lower extremities and has intact sensation but is markedly weak, chronic bilateral lower extremity lymphedema Psych: Other: Appropriate mood and affect, pleasant and cooperative, judgment and insight intact H&P: Results Labs Labs: Laboratory Tests 01/08/25 09:55 01/08/25 09:55 01/08/25 01/08/25 01/08/25 09:55 09:55 09:55 WBC 3.3 L RBC 3.78 L Hgb 10.3 L Hct 31.7 L MCV 83.9 MCH 27.2 MCHC 32.5 RDW 14.7 H Plt Count 131 L MPV 9.3 Immature Gran % (Auto) 0.3 Neut % (Auto) 56.5 Lymph % (Auto) 24.7 [place] % (Auto) 14.6 H Eos % (Auto) 2.7 Baso % (Auto) 1.2 Lymph # (Auto) 0.81 L [place] # (Auto) 0.5 Eos # (Auto) 0.1 Baso # (Auto) 0.0 Abs Immat Gran (auto) 0.01 Absolute Neuts (auto) 1.9 Absolute Nucleated RBC 0.000 Nucleated RBC % 0.0 PT 25.4 H D INR 2.4 APTT 39.2 H Sodium 130 L Potassium 5.3 H Chloride 103 Carbon Dioxide 18 L Anion Gap 9 BUN 27 H Creatinine 1.53 H Estim Creat Clear Calc 32 Estimated GFR 43 L Glucose 88 Lactic Acid Calcium 8.6 Magnesium 1.9 Cancelled Total Bilirubin 0.5 AST 44 ALT 12 Alkaline Phosphatase 73 Total Creatine Kinase 60 Cancelled Troponin I < 0.012 C-Reactive Protein NT-Pro-B Natriuret Pep Total Protein Albumin TSH Free T4 Free T3 pg/mL Urine Color Urine Appearance Urine pH Ur Specific P[place] Urine Protein Urine Glucose (UA) Urine Ketones Ur Blood (Man) Urine Nitrate Urine Bilirubin Urine Urobilinogen Add Ur Microanalysis Leukocyte Esterase Rfl Urine RBC Urine WBC Ur Squamous Epith Cells Urine Bacteria Urine Casts Hyaline Casts Urine Opiates Screen Urine Methadone Screen Ur Barbiturates Screen Ur Phencyclidine Scrn Ur Amphetamine Screen U Benzodiazepines Scrn Urine Cocaine Screen U Cannabinoids Screen Ethyl Alcohol Influenza A (RT-PCR) Influenza B (RT-PCR) RSV (RT-PCR) SARS-CoV-2 RNA (RT-PCR) 07/21/25 07/21/25 07/21/25 09:55 09:55 11:06 WBC RBC Hgb Hct MCV MCH MCHC RDW Plt Count MPV Immature Gran % (Auto) Neut % (Auto) Lymph % (Auto) [place] % (Auto) Eos % (Auto) Baso % (Auto) Lymph # (Auto) [place] # (Auto) Eos # (Auto) Baso # (Auto) Abs Immat Gran (auto) Absolute Neuts (auto) Absolute Nucleated RBC Nucleated RBC % PT INR APTT Sodium Potassium Chloride Carbon Dioxide Anion Gap BUN Creatinine Estim Creat Clear Calc Estimated GFR Glucose Lactic Acid 2.3 H Calcium Magnesium Total Bilirubin AST ALT Alkaline Phosphatase Total Creatine Kinase Troponin I Cancelled C-Reactive Protein 0.8 NT-Pro-B Natriuret Pep 3990 H Total Protein 8.5 H Albumin 3.7 TSH 0.117 L Cancelled Free T4 Free T3 pg/mL Urine Color Urine Appearance Urine pH Ur Specific [place] Urine Protein Urine Glucose (UA) Urine Ketones Ur Blood (Man) Urine Nitrate Urine Bilirubin Urine Urobilinogen Add Ur Microanalysis Leukocyte Esterase Rfl Urine RBC Urine WBC Ur Squamous Epith Cells Urine Bacteria Urine Casts Hyaline Casts Urine Opiates Screen Urine Methadone Screen Ur Barbiturates Screen Ur Phencyclidine Scrn Ur Amphetamine Screen U Benzodiazepines Scrn Urine Cocaine Screen U Cannabinoids Screen Ethyl Alcohol < 10 Influenza A (RT-PCR) Negative Influenza B (RT-PCR) Negative RSV (RT-PCR) Negative SARS-CoV-2 RNA (RT-PCR) Negative 01/08/25 01/08/25 01/08/25 11:14 12:08 12:43 WBC RBC Hgb Hct MCV MCH MCHC RDW Plt Count MPV Immature Gran % (Auto) Neut % (Auto) Lymph % (Auto) [place] % (Auto) Eos % (Auto) Baso % (Auto) Lymph # (Auto) [place] # (Auto) Eos # (Auto) Baso # (Auto) Abs Immat Gran (auto) Absolute Neuts (auto) Absolute Nucleated RBC Nucleated RBC % PT INR APTT Sodium Potassium Chloride Carbon Dioxide Anion Gap BUN Creatinine Estim Creat Clear Calc Estimated GFR Glucose Lactic Acid Calcium Magnesium Total Bilirubin AST ALT Alkaline Phosphatase Total Creatine Kinase Troponin I C-Reactive Protein NT-Pro-B Natriuret Pep Total Protein Albumin TSH Free T4 1.95 Free T3 pg/mL Cancelled 2.17 L Urine Color Yellow Urine Appearance Clear Urine pH 5.5 Ur Specific [place]or 1.017 Urine Protein Trace Urine Glucose (UA) Negative Urine Ketones Negative Ur Blood (Man) Negative Urine Nitrate Negative Urine Bilirubin Negative Urine Urobilinogen 0.2 Add Ur Microanalysis Reviewed Leukocyte Esterase Rfl Negative Urine RBC 0-2 Urine WBC 0-5 Ur Squamous Epith Cells None seen Urine Bacteria None seen Urine Casts 6-10 Hyaline Casts Present Urine Opiates Screen Negative Urine Methadone Screen Negative Ur Barbiturates Screen Negative Ur Phencyclidine Scrn Negative Ur Amphetamine Screen Negative U Benzodiazepines Scrn Negative Urine Cocaine Screen Negative U Cannabinoids Screen Negative Ethyl Alcohol Influenza A (RT-PCR) Influenza B (RT-PCR) RSV (RT-PCR) SARS-CoV-2 RNA (RT-PCR) 01/08/25 16:24 WBC RBC Hgb Hct MCV MCH MCHC RDW Plt Count MPV Immature Gran % (Auto) Neut % (Auto) Lymph % (Auto) [place] % (Auto) Eos % (Auto) Baso % (Auto) Lymph # (Auto) [place] # (Auto) Eos # (Auto) Baso # (Auto) Abs Immat Gran (auto) Absolute Neuts (auto) Absolute Nucleated RBC Nucleated RBC % PT INR APTT Sodium Potassium Chloride Carbon Dioxide Anion Gap BUN Creatinine Estim Creat Clear Calc Estimated GFR Glucose Lactic Acid 1.1 Calcium Magnesium Total Bilirubin AST ALT Alkaline Phosphatase Total Creatine Kinase Troponin I C-Reactive Protein NT-Pro-B Natriuret Pep Total Protein Albumin TSH Free T4 Free T3 pg/mL Urine Color Urine Appearance Urine pH Ur Specific [place] Urine Protein Urine Glucose (UA) Urine Ketones Ur Blood (Man) Urine Nitrate Urine Bilirubin Urine Urobilinogen Add Ur Microanalysis Leukocyte Esterase Rfl Urine RBC Urine WBC Ur Squamous Epith Cells Urine Bacteria Urine Casts Hyaline Casts Urine Opiates Screen Urine Methadone Screen Ur Barbiturates Screen Ur Phencyclidine Scrn Ur Amphetamine Screen U Benzodiazepines Scrn Urine Cocaine Screen U Cannabinoids Screen Ethyl Alcohol Influenza A (RT-PCR) Influenza B (RT-PCR) RSV (RT-PCR) SARS-CoV-2 RNA (RT-PCR) Impressions Cervical Spine CT 01/08/25 11:50 IMPRESSION: 1. No evidence for acute intracranial hemorrhage or calvarial fracture. 2. No evidence for cervical spine fracture or traumatic subluxation. 3. Multilevel degenerative changes of the cervical spine. Head CT 01/08/25 11:50 IMPRESSION: 1. No evidence for acute intracranial hemorrhage or calvarial fracture. 2. No evidence for cervical spine fracture or traumatic subluxation. 3. Multilevel degenerative changes of the cervical spine. Chest X-Ray 01/08/25 12:01 IMPRESSION: Mild CHF. Superimposed infection cannot be excluded. Clinical correlation is recommended. Chest/Abdomen/Pelvis CT 01/08/25 13:21 IMPRESSION: Partially visualized large left supraclavicular mass (enriqueta conglomerate), new left lower lobe lung mass, multiple new left pulmonary nodules, large para- aortic lymphadenopathy with 13.5 cm and 7.4 cm masses on either side, all compatible with worsening metastatic disease, as detailed above. EKG:Test Date: 2025-01-08 10:10:40 Measurements Intervals Dyer Rate: 56 P: 0 NH: 0 QRS: 60 QRSD: 126 T: 31 QT: 419 QTc: 406 Interpretive Statements ATRIAL FIBRILLATION WITH SLOW VENTRICULAR RESPONSE ST DEVIATION AND MODERATE T-WAVE ABNORMALITY, CONSIDER ANTERIOR ISCHEMIA [-0.1+ mV T-WAVE IN V3/V4] No previous ECG available for comparison All imaging and EKGs personally reviewed and interpreted. And unless stated otherwise agree with radiologic and cardiology interpretation. 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: Code(s): C7B.1 - Secondary Maud cell carcinoma Status: Acute (3) Pancytopenia: Code(s): D61.818 - Other pancytopenia Status: Acute (4) Hyperkalemia: Code(s): E87.5 - Hyperkalemia Status: Acute (5) Adult failure to thrive: Code(s): R62.7 - Adult failure to thrive Status: Acute (6) CKD (chronic kidney disease) stage 3, GFR 30-59 ml/min: Qualifiers: Chronic kidney disease stage 3 subtype: stage 3b (GFR 30-44) Qualified Code(s): N18.32 - Chronic kidney disease, stage 3b Code(s): N18.30 - Chronic kidney disease, stage 3 unspecified Status: Acute (7) Hypothyroidism: Qualifiers: Hypothyroidism type: acquired Qualified Code(s): E03.9 - Hypothyroidism, unspecified Code(s): E03.9 - Hypothyroidism, unspecified Status: Acute (8) Chronic hyponatremia: Code(s): E87.1 - Hypo-osmolality and hyponatremia Status: Acute (9) Chronic anticoagulation: Code(s): Z79.01 - group home (current) use of anticoagulants Status: Acute Plan Patient has failure to thrive and severe protein calorie malnutrition due to with the diagnosis recurrent of Maud cell cancer widely metastatic in distribution. The patient and his family have decided that they want to focus on comfort based care in do not want further evaluation of malignancy. Patient would like to talk to care coordination and determine hospice options and potential placement. The patient is fixated on continuing to get his home medications. Patient has been reassured that he will continue did get the majority of his home medications. However will hold the patient's statin therapy is this will only cause increased weakness. Will also discontinue metformin as the patient is prior hemoglobin A1c was less than 6 and the patient now has malnutrition and is at high risk for hypoglycemia.. The patient requested medications for sleep 1 dose of Ativan was provided. Patient is on chronic anticoagulation with warfarin which has been continued. Patient has been admitted as observation status. MEDICAL DECISION MAKING NARRATIVE -Spoke with the ED provider in detail regarding patient's evaluation, workup and management -Patient seen and examined at bedside -Collaborated with patient's nurse at the bedside in detail and addressed all concerns -Labs, electrolytes, radiology, investigations and test results reviewed -ED/Consult/Nursing/Ancilliary notes on the chart reviewed and appreciated -Spoke with patient all questions were answered and patient is agreeable with plan. Quality VTE Prophylaxis VTE prophylaxis: pharmacologic ordered (On Coumadin) Hospitalist [facility] Advance Care Plan I have confirmed that the patient's Advanced Care Plan is present, code status is documented, or surrogate decision maker is listed in patient medical record.: Yes Medication Reconciliation I have utilized all available resources to obtain, update and review the patients current medications (includes all prescriptions, OTC, herbals, cannabis, and nutritional supplements).: Yes
[2025-01-09] VITALS (8 sets, daily range): BP systolic 93–119; BP diastolic 48–65; PULSE 62–97; RESP 16–20; TEMP 35.7–36.7; O2SAT 92–99; BMI 28.0
[2025-01-09] MEDS: LORazepam (*CRX) 0.5 MG TABLET PO ×2 (00:33→21:06)
--- NOTE | 2025-01-09 05:30 | PC.NURSE ---
Report given to MILO Wray. Pt moved from 203 to 322 at this time.
[2025-01-09] MEDS: LEVOTHYROXINE SODIUM 112 MCG TABLET PO (05:50)
[2025-01-09] MEDS: LOSARTAN POTASSIUM 50 MG TABLET PO (08:59)
--- NOTE | 2025-01-09 10:05 | PM.IMPN ---
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: Code(s): C7B.1 - Secondary Hallock cell carcinoma Status: Acute (3) Pancytopenia: Code(s): D61.818 - Other pancytopenia Status: Acute (4) Hyperkalemia: Code(s): E87.5 - Hyperkalemia Status: Acute (5) Adult failure to thrive: Code(s): R62.7 - Adult failure to thrive Status: Acute (6) CKD (chronic kidney disease) stage 3, GFR 30-59 ml/min: Qualifiers: Chronic kidney disease stage 3 subtype: stage 3b (GFR 30-44) Qualified Code(s): N18.32 - Chronic kidney disease, stage 3b Code(s): N18.30 - Chronic kidney disease, stage 3 unspecified Status: Acute (7) Hypothyroidism: Qualifiers: Hypothyroidism type: acquired Qualified Code(s): E03.9 - Hypothyroidism, unspecified Code(s): E03.9 - Hypothyroidism, unspecified Status: Acute (8) Chronic hyponatremia: Code(s): E87.1 - Hypo-osmolality and hyponatremia Status: Acute (9) Chronic anticoagulation: Code(s): Z79.01 - [facility] (current) use of anticoagulants Status: Acute Plan Patient has failure to thrive and severe protein calorie malnutrition due to with the diagnosis recurrent of Hallock cell cancer widely metastatic in distribution. The patient and his family have decided that they want to focus on comfort based care in do not want further evaluation of malignancy. Patient would like to talk to care coordination and determine hospice options and potential placement. The patient is fixated on continuing to get his home medications. Patient has been reassured that he will continue did get the majority of his home medications. However will hold the patient's statin therapy is this will only cause increased weakness. Will also discontinue metformin as the patient is prior hemoglobin A1c was less than 6 and the patient now has malnutrition and is at high risk for hypoglycemia.. The patient requested medications for sleep 1 dose of Ativan was provided. Patient is on chronic anticoagulation with warfarin which has been continued. care coordination consulted for comfort/hospice pt denies any pain but will order pain meds if needed ordered lomotil Time Spent With Patient Time with patient: 25 - 35 minutes Subjective Date/time seen: 01/09/25 10:05 Interval history: ..89-year-old male with a past medical history of type 2 diabetes mellitus, hypothyroidism, hypertension, DVT, atrial fibrillation on chronic anticoagulation with Coumadin, chronic kidney disease stage 3 and Reji cell cancer originally diagnosed 2018 (among other comorbidities) who presented to the ER in the company of family due to generalized weakness and decreased appetite. Patient family reported that symptoms started few days ago after the patient had bout of loose stools. Patient denies any nausea or vomiting he reports he just had a poor appetite. He states that he has been wheelchair dependent for a long time but is now become so weak that he is having difficulty even rolling over in bed unassisted. He complains of a cyst on his buttock that is painful but it is been there for quite some time. He denies any shortness of breath or other areas of pain. He denies difficulty with urination. On review of patient's chart 1 year ago at this time the patient weighed at least 10 kg more than he does currently. He states that a few months ago his weight was 222 lb. Currently he is around 195 lb. The back in 2022 the patient was around 300 lb. He reports that he quit smoking several years ago but still uses nicotine lozenges. He reports that he technically uses more nicotine lozenges a day than are recommended. 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 Patient received treatment for hyperkalemia with insulin, calcium, dextrose, sodium bicarbonate and 2.5 L of fluid bolus for 30 mL/kilos total volume. He was initially given empiric antibiotic therapy for possible pneumonia but imaging did not end of demonstrating pneumonia. Blood cultures were obtained and are pending. Pt is seen and examined. Discussed plan of care, family is present - all questions answered. Pt wants to proceed with comfort/hospice care. reports occasional diarrhea- requesting lomotil. Review of Systems Review of Systems: 12 systems were reviewed with pertinent positives and negatives per HPI. Except as documented in the HPI, all other systems were reviewed and are negative. Exam Narrative: Weight 89.8 kg BMI 28.4 Const: Other: Cachectic, no acute distress, frail, elderly HENMT: Other: Head is normocephalic atraumatic, temporal wasting noted, mucous membranes are dry, no posterior oral pharyngeal erythema, upper dentures in place, edentulous in lower jaw patient reports that his dentures do not fit. Eyes: Other: No conjunctival pallor, no scleral icterus, pupils are equal and reactive Neck: Other: No JVD, large palpable mass in left supraclavicular region Resp: Other: Clear to auscultation bilaterally, no increased work of breathing Cardio: Other: Irregularly irregular, rate controlled, 2+ bilateral radial pedal pulses GI: Other: Soft, nontender, nondistended, positive bowel sounds Skin: Other: Generalized pallor, non jaundice, chronic lymphedema changes bilateral lower extremities Neuro: Other: Alert orient x4, speech is clear and fluent, no facial asymmetry, no localizing neurologic deficits noted during the course of conversation Extrem: Other: 4/5 roadway engineer strength on the left, 5/5 roadway engineer strength on the right, patient moves both lower extremities and has intact sensation but is markedly weak, chronic bilateral lower extremity lymphedema Psych: Other: Appropriate mood and affect, pleasant and cooperative, judgment and insight intact Objective Data Vital Signs Vital Signs: Vital Signs - 24 hr 01/08/25 10:15 01/08/25 10:16 01/08/25 10:56 Temperature Pulse Rate 56 L 56 L 54 L Respiratory Rate 12 12 11 L Blood Pressure 93/50 L Pulse Oximetry 100 99 99 Oxygen Delivery 01/08/25 11:00 01/08/25 11:01 01/08/25 11:18 Temperature 97.4 F L Pulse Rate 51 L 51 L 70 Respiratory Rate 11 L 15 23 H Blood Pressure 83/42 L Pulse Oximetry 98 97 98 Oxygen Delivery 01/08/25 11:44 01/08/25 11:46 01/08/25 12:00 Temperature Pulse Rate 54 L 55 L 65 Respiratory Rate 12 13 29 H Blood Pressure Pulse Oximetry 100 100 100 Oxygen Delivery 01/08/25 12:21 01/08/25 12:34 01/08/25 12:58 Temperature Pulse Rate 52 L 62 58 L Respiratory Rate 16 18 13 Blood Pressure Pulse Oximetry 91 100 Oxygen Delivery 01/08/25 12:59 01/08/25 13:01 01/08/25 13:18 Temperature Pulse Rate 60 61 65 Respiratory Rate 14 12 21 H Blood Pressure 102/60 Pulse Oximetry 100 Oxygen Delivery 01/08/25 13:30 01/08/25 13:39 01/08/25 13:45 Temperature Pulse Rate 63 57 L 63 Respiratory Rate 14 16 14 Blood Pressure 91/55 L 92/51 L Pulse Oximetry Oxygen Delivery 01/08/25 13:46 01/08/25 14:00 01/08/25 14:01 Temperature Pulse Rate 56 L 55 L 54 L Respiratory Rate 14 11 L 16 Blood Pressure 85/46 L Pulse Oximetry Oxygen Delivery 01/08/25 14:17 01/08/25 14:30 01/08/25 14:31 Temperature Pulse Rate 57 L 55 L 53 L Respiratory Rate 14 16 18 Blood Pressure 90/54 L Pulse Oximetry 96 95 Oxygen Delivery 01/08/25 14:48 01/08/25 15:06 01/08/25 15:22 Temperature Pulse Rate 55 L 64 58 L Respiratory Rate 13 16 14 Blood Pressure Pulse Oximetry 98 98 97 Oxygen Delivery 01/08/25 15:30 01/08/25 15:31 01/08/25 15:45 Temperature Pulse Rate 55 L 60 60 Respiratory Rate 15 10 L 16 Blood Pressure 88/49 L 100/56 L Pulse Oximetry 100 99 99 Oxygen Delivery 01/08/25 15:46 01/08/25 15:53 01/08/25 15:59 Temperature Pulse Rate 59 L 60 63 Respiratory Rate 14 14 14 Blood Pressure 101/54 L 101/64 Pulse Oximetry 98 99 99 Oxygen Delivery 01/08/25 16:01 01/08/25 16:15 01/08/25 16:16 Temperature Pulse Rate 61 60 59 L Respiratory Rate 18 13 15 Blood Pressure 93/61 L Pulse Oximetry 99 99 100 Oxygen Delivery 01/08/25 16:30 01/08/25 16:31 01/08/25 16:55 Temperature Pulse Rate 56 L 59 L 60 Respiratory Rate 11 L 9 L 10 L Blood Pressure 97/58 L Pulse Oximetry 97 98 98 Oxygen Delivery 01/08/25 17:02 01/08/25 18:58 01/08/25 20:00 Temperature 97.0 F L 97.6 F Pulse Rate 64 86 98 Respiratory Rate 16 18 18 Blood Pressure 131/60 112/66 Pulse Oximetry 100 98 100 Oxygen Delivery 01/08/25 20:00 01/08/25 20:00 01/08/25 22:00 Temperature Pulse Rate 64 66 Respiratory Rate Blood Pressure Pulse Oximetry Oxygen Delivery Room Air 01/08/25 23:09 01/09/25 00:00 01/09/25 02:00 Temperature 97.4 F L Pulse Rate 71 66 Respiratory Rate 18 Blood Pressure 119/65 Pulse Oximetry 94 Oxygen Delivery Room Air 01/09/25 04:00 01/09/25 05:40 Temperature 96.3 F L Pulse Rate 63 63 Respiratory Rate 20 Blood Pressure 99/53 L Pulse Oximetry 95 Oxygen Delivery Intake/Output Intake/Output: Intake & Output 01/06/25 01/07/25 01/08/25 01/09/25 23:59 23:59 23:59 23:59 Intake Total 1400 270 Output Total 200 Balance 1400 70 Meds/Results Medications: Active Medications Generic Name Dose Route Start Last Admin Trade Name Freq PRN Reason Stop Dose Admin Acetaminophen 650 mg 01/08/25 16:54 Acetaminophen 325 Mg Tablet PO Q4H PRN Mild Pain (1-3) or Fever Levothyroxine Sodium 112 mcg 01/09/25 06:30 01/09/25 05:50 Levothyroxine Sodium 112 Mcg Tablet PO 112 mcg DAILY@0630 ZAIRA Administration Losartan Potassium 50 mg 01/09/25 09:00 01/09/25 08:59 Losartan Potassium 50 Mg Tablet PO 50 mg DAILY ZAIRA Administration Nicotine Polacrilex 4 mg 01/09/25 02:41 Nicotine (*Pbkc) 4 Mg Gum PO PRN PRN Nicotine Cravings Ondansetron HCl 4 mg 01/08/25 16:54 Ondansetron Inj 4 Mg/2 Ml Vial IV PUSH Q4H PRN Nausea Warfarin Sodium 2.5 mg 01/10/25 17:00 Warfarin (*Pbkc) 2.5 Mg Tablet PO MoWeFr@1700 [facility] Warfarin Sodium 3 mg 01/09/25 17:00 Warfarin (*Pbkc) 3 Mg Tablet PO SuTuThSa@1700 [facility] Radiology Results: ITS Impressions Cervical Spine CT 01/08/25 11:50 IMPRESSION: 1. No evidence for acute intracranial hemorrhage or calvarial fracture. 2. No evidence for cervical spine fracture or traumatic subluxation. 3. Multilevel degenerative changes of the cervical spine. Head CT 01/08/25 11:50 IMPRESSION: 1. No evidence for acute intracranial hemorrhage or calvarial fracture. 2. No evidence for cervical spine fracture or traumatic subluxation. 3. Multilevel degenerative changes of the cervical spine. Chest X-Ray 01/08/25 12:01 IMPRESSION: Mild CHF. Superimposed infection cannot be excluded. Clinical correlation is recommended. Chest/Abdomen/Pelvis CT 01/08/25 13:21 IMPRESSION: Partially visualized large left supraclavicular mass (enriqueta conglomerate), new left lower lobe lung mass, multiple new left pulmonary nodules, large para-aortic lymphadenopathy with 13.5 cm and 7.4 cm masses on either side, all compatible with worsening metastatic disease, as detailed above. Labs Labs: Laboratory Results - last 24 hr 01/08/25 01/08/25 01/08/25 09:55 09:55 09:55 WBC 3.3 L RBC 3.78 L Hgb 10.3 L Hct 31.7 L MCV 83.9 MCH 27.2 MCHC 32.5 RDW 14.7 H Plt Count 131 L MPV 9.3 Immature Gran % (Auto) 0.3 Neut % (Auto) 56.5 Lymph % (Auto) 24.7 [place] % (Auto) 14.6 H Eos % (Auto) 2.7 Baso % (Auto) 1.2 Lymph # (Auto) 0.81 L [place] # (Auto) 0.5 Eos # (Auto) 0.1 Baso # (Auto) 0.0 Abs Immat Gran (auto) 0.01 Absolute Neuts (auto) 1.9 Absolute Nucleated RBC 0.000 Nucleated RBC % 0.0 PT 25.4 H D INR 2.4 APTT 39.2 H Sodium 130 L Potassium 5.3 H Chloride 103 Carbon Dioxide 18 L Anion Gap 9 BUN 27 H Creatinine 1.53 H Estim Creat Clear Calc 32 Estimated GFR 43 L Glucose 88 Lactic Acid Calcium 8.6 Magnesium 1.9 Cancelled Total Bilirubin 0.5 AST 44 ALT 12 Alkaline Phosphatase 73 Total Creatine Kinase 60 Cancelled Troponin I < 0.012 C-Reactive Protein NT-Pro-B Natriuret Pep Total Protein Albumin TSH Free T4 Free T3 pg/mL Urine Color Urine Appearance Urine pH Ur Specific [place] Urine Protein Urine Glucose (UA) Urine Ketones Ur Blood (Man) Urine Nitrate Urine Bilirubin Urine Urobilinogen Add Ur Microanalysis Leukocyte Esterase Rfl Urine RBC Urine WBC Ur Squamous Epith Cells Urine Bacteria Urine Casts Hyaline Casts Urine Opiates Screen Urine Methadone Screen Ur Barbiturates Screen Ur Phencyclidine Scrn Ur Amphetamine Screen U Benzodiazepines Scrn Urine Cocaine Screen U Cannabinoids Screen Ethyl Alcohol Influenza A (RT-PCR) Influenza B (RT-PCR) RSV (RT-PCR) SARS-CoV-2 RNA (RT-PCR) 01/08/25 01/08/25 01/08/25 09:55 09:55 11:06 WBC RBC Hgb Hct MCV MCH MCHC RDW Plt Count MPV Immature Gran % (Auto) Neut % (Auto) Lymph % (Auto) [place] % (Auto) Eos % (Auto) Baso % (Auto) Lymph # (Auto) [place] # (Auto) Eos # (Auto) Baso # (Auto) Abs Immat Gran (auto) Absolute Neuts (auto) Absolute Nucleated RBC Nucleated RBC % PT INR APTT Sodium Potassium Chloride Carbon Dioxide Anion Gap BUN Creatinine Estim Creat Clear Calc Estimated GFR Glucose Lactic Acid 2.3 H Calcium Magnesium Total Bilirubin AST ALT Alkaline Phosphatase Total Creatine Kinase Troponin I Cancelled C-Reactive Protein 0.8 NT-Pro-B Natriuret Pep 3990 H Total Protein 8.5 H Albumin 3.7 TSH 0.117 L Cancelled Free T4 Free T3 pg/mL Urine Color Urine Appearance Urine pH Ur Specific [place] Urine Protein Urine Glucose (UA) Urine Ketones Ur Blood (Man) Urine Nitrate Urine Bilirubin Urine Urobilinogen Add Ur Microanalysis Leukocyte Esterase Rfl Urine RBC Urine WBC Ur Squamous Epith Cells Urine Bacteria Urine Casts Hyaline Casts Urine Opiates Screen Urine Methadone Screen Ur Barbiturates Screen Ur Phencyclidine Scrn Ur Amphetamine Screen U Benzodiazepines Scrn Urine Cocaine Screen U Cannabinoids Screen Ethyl Alcohol < 10 Influenza A (RT-PCR) Negative Influenza B (RT-PCR) Negative RSV (RT-PCR) Negative SARS-CoV-2 RNA (RT-PCR) Negative 01/08/25 01/08/25 01/08/25 11:14 12:08 12:43 WBC RBC Hgb Hct MCV MCH MCHC RDW Plt Count MPV Immature Gran % (Auto) Neut % (Auto) Lymph % (Auto) [place] % (Auto) Eos % (Auto) Baso % (Auto) Lymph # (Auto) [place] # (Auto) Eos # (Auto) Baso # (Auto) Abs Immat Gran (auto) Absolute Neuts (auto) Absolute Nucleated RBC Nucleated RBC % PT INR APTT Sodium Potassium Chloride Carbon Dioxide Anion Gap BUN Creatinine Estim Creat Clear Calc Estimated GFR Glucose Lactic Acid Calcium Magnesium Total Bilirubin AST ALT Alkaline Phosphatase Total Creatine Kinase Troponin I C-Reactive Protein NT-Pro-B Natriuret Pep Total Protein Albumin TSH Free T4 1.95 Free T3 pg/mL Cancelled 2.17 L Urine Color Yellow Urine Appearance Clear Urine pH 5.5 Ur Specific [place] 1.017 Urine Protein Trace Urine Glucose (UA) Negative Urine Ketones Negative Ur Blood (Man) Negative Urine Nitrate Negative Urine Bilirubin Negative Urine Urobilinogen 0.2 Add Ur Microanalysis Reviewed Leukocyte Esterase Rfl Negative Urine RBC 0-2 Urine WBC 0-5 Ur Squamous Epith Cells None seen Urine Bacteria None seen Urine Casts 6-10 Hyaline Casts Present Urine Opiates Screen Negative Urine Methadone Screen Negative Ur Barbiturates Screen Negative Ur Phencyclidine Scrn Negative Ur Amphetamine Screen Negative U Benzodiazepines Scrn Negative Urine Cocaine Screen Negative U Cannabinoids Screen Negative Ethyl Alcohol Influenza A (RT-PCR) Influenza B (RT-PCR) RSV (RT-PCR) SARS-CoV-2 RNA (RT-PCR) 01/08/25 16:24 WBC RBC Hgb Hct MCV MCH MCHC RDW Plt Count MPV Immature Gran % (Auto) Neut % (Auto) Lymph % (Auto) [place] % (Auto) Eos % (Auto) Baso % (Auto) Lymph # (Auto) [place] # (Auto) Eos # (Auto) Baso # (Auto) Abs Immat Gran (auto) Absolute Neuts (auto) Absolute Nucleated RBC Nucleated RBC % PT INR APTT Sodium Potassium Chloride Carbon Dioxide Anion Gap BUN Creatinine Estim Creat Clear Calc Estimated GFR Glucose Lactic Acid 1.1 Calcium Magnesium Total Bilirubin AST ALT Alkaline Phosphatase Total Creatine Kinase Troponin I C-Reactive Protein NT-Pro-B Natriuret Pep Total Protein Albumin TSH Free T4 Free T3 pg/mL Urine Color Urine Appearance Urine pH Ur Specific [place] Urine Protein Urine Glucose (UA) Urine Ketones Ur Blood (Man) Urine Nitrate Urine Bilirubin Urine Urobilinogen Add Ur Microanalysis Leukocyte Esterase Rfl Urine RBC Urine WBC Ur Squamous Epith Cells Urine Bacteria Urine Casts Hyaline Casts Urine Opiates Screen Urine Methadone Screen Ur Barbiturates Screen Ur Phencyclidine Scrn Ur Amphetamine Screen U Benzodiazepines Scrn Urine Cocaine Screen U Cannabinoids Screen Ethyl Alcohol Influenza A (RT-PCR) Influenza B (RT-PCR) RSV (RT-PCR) SARS-CoV-2 RNA (RT-PCR) Quality VTE Prophylaxis VTE prophylaxis: pharmacologic ordered (On Coumadin)
[2025-01-09] MEDS: LOPERAMIDE HCL 2 MG CAPSULE PO ×2 (14:30→21:07)
[2025-01-09] MEDS: WARFARIN (*PBKC) 3 MG TABLET PO (18:12)
[2025-01-10] MEDS: LEVOTHYROXINE SODIUM 112 MCG TABLET PO (05:26)
[2025-01-10] MEDS: LOPERAMIDE HCL 2 MG CAPSULE PO (05:26)
[2025-01-10 06:00] VITALS: BP 99/53; PULSE 76; RESP 16; TEMP 36.3; O2SAT 99
--- NOTE | 2025-01-10 12:43 | P.DS_ITS ---
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: Code(s): C7B.1 - Secondary Reji cell carcinoma Status: Acute (3) Pancytopenia: Code(s): D61.818 - Other pancytopenia Status: Acute (4) Hyperkalemia: Code(s): E87.5 - Hyperkalemia Status: Acute (5) Adult failure to thrive: Code(s): R62.7 - Adult failure to thrive Status: Acute (6) CKD (chronic kidney disease) stage 3, GFR 30-59 ml/min: Qualifiers: Chronic kidney disease stage 3 subtype: stage 3b (GFR 30-44) Qualified Code(s): N18.32 - Chronic kidney disease, stage 3b Code(s): N18.30 - Chronic kidney disease, stage 3 unspecified Status: Acute (7) Hypothyroidism: Qualifiers: Hypothyroidism type: acquired Qualified Code(s): E03.9 - Hypothyroidism, unspecified Code(s): E03.9 - Hypothyroidism, unspecified Status: Acute (8) Chronic hyponatremia: Code(s): E87.1 - Hypo-osmolality and hyponatremia Status: Acute (9) Chronic anticoagulation: Code(s): Z79.01 - snf (current) use of anticoagulants Status: Acute DS: Summary Hospital Course Reason for hospitalization: 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 On admission patient was hyperkalemic. He received treatment at that time. Chest x-ray demonstrated possible mild CHF. Head CT and C spine CT demonstrated no acute process. 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 Prior provider discussed the results with patient and his family and they decided they wanted to focus on comfort based care and not further pursue evaluation/treatment for the metastatic concern. Care coordination was consulted at that time for hospice. Patient was set up with [facility] at home. Patient was able to ambulate using a wheeled walker to the restroom prior to discharge. He denied any dizziness/lightheadedness and stated he felt that his baseline. Patient has no complaints denies chest pain, shortness a breath, palpitations, nausea/vomiting, abdominal pain. Patient discharged home with hospice in a stable condition. Diet and medication adjustments to be made per hospice recommendations. Status at Discharge Functional status at discharge: uses cane/walker Time Spent with Patient Time attestation: Total time spent providing and/or coordinating discharge services: Time spent: Greater than 30 minutes Exam Narrative: AF HR 76 RR 16 SpO2 99 BP 99/53 General: male in no acute respiratory distress who is nontoxic appearing, sitting up on side of bed HEENT: Normocephalic. Atraumatic. Extraocular movement intact. Sclera clear and anicteric. No facial asymmetry. Chest: Lungs are clear to auscultation bilaterally. No wheezes or crackles. CV: Heart was regular rate and rhythm. S1/S2. No murmurs, gallops, or rubs. Abd: Abdomen was soft. Nontender. Nondistended. Positive bowel sounds. No organomegaly or masses. Ext: No clubbing, cyanosis, or edema. DP pulses bilaterally. Neuro: Patient is alert and oriented x3. Speech is clear. Patient ambulated with WW to the rest room. DS: Data Data Completed and Pending Completed studies during hospitalization: C-spine CT Head CT Chest x-ray Chest abdomen pelvis CT Labs on day of discharge: Preliminary micro results at discharge 01/08/25 11:57 Blood Culture - Preliminary Blood 01/08/25 11:26 Blood Culture - Preliminary Blood Discharge Plan Discharge Attending physician on discharge: Paramjit Garcia Consulting providers: Verónica Mcarthur Discharging Clinician: Verónica Mcarthur Anticipated Discharge Date/Time: 01/10/25 12:40 Patient Disposition: Hospice - Home Activity: as tolerated Diet: as tolerated Discharge Instructions: Discharge disposition: Patient admitted to the hospital for weakness Patient decided to continue with [facility] at home Take medications as prescribed per hospice Diet as tolerated per hospice Check blood pressure prior to taking antihypertensives Take caution while standing, rising, or moving Change positions slowly taking a break between each position change If you standing feel dizzy sit back down and take a break Thank you for choosing [facility] for your healthcare needs Patient Instructions: Warfarin (By mouth), Heart Failure (GEN), Hospice Care (GEN) Patient Language: Icelandic Stand Alone Forms: General Discharge Information Follow-up/Referrals: Carroll Wood APRN [Primary Care Provider] - Discharge Medications: New loperamide 2 mg Capsule 2 mg PO PRN PRN (Reason: Diarrhea) Qty: 15 0RF Continued multivitamin Tablet 1 tablet PO DAILY cyanocobalamin (vitamin B-12) 500 mcg lozenge 500 mcg PO DAILY ascorbate calcium (vitamin C) 500 mg tablet 500 mg PO DAILY sulfasalazine 500 mg tablet,delayed release (DR/EC) 1.5 g PO BID Qty: 180 12RF losartan 50 mg tablet See Rx Instructions .ROUTE .COMPLEX Qty: 90 2RF Dose Instruction: TAKE 1 TABLET BY MOUTH DAILY Rx Instructions: TAKE 1 TABLET BY MOUTH DAILY warfarin 2.5 mg tablet 2.5 mg PO DAILY Qty: 30 3RF pravastatin 10 mg tablet See Rx Instructions .ROUTE .COMPLEX Qty: 90 2RF Dose Instruction: TAKE 1 TABLET BY MOUTH EVERY DAY Rx Instructions: TAKE 1 TABLET BY MOUTH EVERY DAY metformin 500 mg tablet 500 mg PO BID Qty: 180 1RF levothyroxine 112 mcg tablet See Rx Instructions .ROUTE .COMPLEX Qty: 90 1RF Dose Instruction: TAKE 1 TABLET BY MOUTH EVERY DAY Rx Instructions: TAKE 1 TABLET BY MOUTH EVERY DAY warfarin 3 mg tablet 3 mg PO DAILY Qty: 30 3RF Date of admission: 01/09/25 10:04 Primary Care Provider: Carroll Wood Admitting Provider: Saumya De La Fuente Attending physician on admission: Saumya De La Fuente Condition: Stable Hospitalist MIPS Heart Failure (Exclusion) Patient has history of Heart Transplant or Left Ventricular Assistive Device?: No IF YES, STOP HERE Heart Failure (Qualifier) Patient has current or prior documentation of LVEF less than or equal to 40%, or mod/servere depressed LVSF?: No IF NO, STOP HERE
[2025-01-10 13:26] VITALS: BP 92/52; PULSE 62; RESP 18; TEMP 36.4; O2SAT 97
== END 2025-01-10 14:40 | disposition hospice, home (50) | DRG 595 ==
LOC: ANHED 16:59 → ANHIMU 17:42 → ANH3MEDSUR 01-09 05:17
PROVIDERS: Admitting Provider Internal Medicine; Emergency Provider Student in an Organized Health Care Education/Training Program; PCP Nurse Practitioner; Visit Provider Student in an Organized Health Care Education/Training Program
DX: C4A.9 Merkel cell carcinoma, unspecified (principal); E43 Unspecified severe protein-calorie malnutrition; D61.818 Other pancytopenia; E87.1 Hypo-osmolality and hyponatremia; I13.0 Hypertensive heart and chronic kidney disease with heart failure and stage 1 through stage 4 chronic kidney disease, or unspecified chronic kidney disease; C7B.1 Secondary Merkel cell carcinoma; R62.7 Adult failure to thrive; Z51.5 Encounter for palliative care; E87.5 Hyperkalemia; E11.22 Type 2 diabetes mellitus with diabetic chronic kidney disease; E03.9 Hypothyroidism, unspecified; G47.33 Obstructive sleep apnea (adult) (pediatric); I48.91 Unspecified atrial fibrillation; I50.9 Heart failure, unspecified; N18.30 Chronic kidney disease, stage 3 unspecified; R91.8 Other nonspecific abnormal finding of lung field; Z79.01 Long term (current) use of anticoagulants; Z20.822 Contact with and (suspected) exposure to COVID-19; Z79.84 Long term (current) use of oral hypoglycemic drugs; Z86.718 Personal history of other venous thrombosis and embolism; Z87.891 Personal history of nicotine dependence; Z85.828 Personal history of other malignant neoplasm of skin; Z66 Do not resuscitate
CPT/HCPCS: 36415; 70450; 71045; 71260; 72125; 74177; 80053; 80307; 81001; 82077; 82550; 83605; 83735; 83880; 84439; 84443; 84481; 84484; 85025; 85610; 85730; 86140; 87040; 87637; 93005; 96361; 96365; 96366; 96367; 96375; 99212; 99285; A9270; G0378; G0463; J0612; J1815; J1956; J3373; J7040; Q9967

== ENCOUNTER 2025-01-11 09:53 | Inpatient (IN) | payer MEDICARE, SELFPAY ==
--- NOTE | ~2025-01-11 | CT_ITS ---
EXAM: CT brain wo con, CT cervical spine wo con - 01/11/2025 10:28 CDT HISTORY: 89 years old Male with fall COMPARISON: 01/08/2025 PROCEDURE: CT of the head and cervical spine without contrast. Axial, sagittal and coronal reformat jewels planes were evaluated. Automatic exposure control was used for this study. FINDINGS: CT HEAD: BRAIN PARENCHYMA: No acute hemorrhage. No mass effect or herniation. Castillo-white matter differentiatio n is maintained. Mild chronic volume loss. Scattered hypodensities in subcortical and periventricular white matter, likely representing chronic microvascular ischemic changes in this age group. Atherosc lerotic calcification of the intracranial vessels is noted. VENTRICLES/ EXTRA-AXIAL SPACES: No hydrocephalus or extra-axial fluid collection. EXTRACRANIAL STRUCTURES: No calvarial fracture. CT CERVICAL SPINE: No acute fracture or subluxation. Straightening of cervical lordosis, likely positional or may be rel ated to muscle spasm. Multilevel degenerative changes of the cervical spine include varying degrees o f disk space narrowing, endplate osteophytosis as well as facet and uncal arthropathy. Grade 1 retrol isthesis of C6 on C7, likely degenerative. Prevertebral soft tissues are within normal limits. Visualized lung apices are clear. IMPRESSION: 1. No evidence for acute intracranial hemorrhage or calvarial fracture. 2. No evidence for cervical spine fracture or traumatic subluxation. 3. Multilevel degenerative changes of the cervical spine. Reviewed, dictated and finalized at location A. IMPRESSION: 1. No evidence for acute intracranial hemorrhage or calvarial fracture. 2. No evidence for cervical spine fracture or traumatic subluxation. 3. Multilevel degenerative changes of the cervical spine.
--- NOTE | ~2025-01-11 | XR_ITS ---
XR chest 1V 01/11/2025 10:49 Indication: Weakness after fall Procedure: AP view of the chest Comparison: 01/08/2025 Findings: Heart size normal. No focal air space disease, pulmonary edema, pleural effusion or suspect ed pneumothorax. There is atherosclerosis of ectasia of the aorta. Impression: 1: No acute cardiopulmonary disease. Reviewed, dictated and finalized at location A. Impression: 1: No acute cardiopulmonary disease.
--- NOTE | ~2025-01-11 | XR_ITS ---
EXAM/ PROCEDURE: XR hip RT 2V w AP pelvis - 01/11/2025 10:35 CDT HISTORY: 89 years old Male with fall, right hip pain COMPARISON: None available TECHNIQUE: Three view(s) FINDINGS/ IMPRESSION: Status post right hip arthroplasty with intact hardware. No loosening. There are no fractures or dislocations.Joint space narrowing, subchondral sclerosis, subchondral cyst formation and osteophyte formation, compatible with moderate osteoarthritis. Reviewed, dictated and finalized at location A.
[2025-01-11 09:55] VITALS: BP 114/63; PULSE 78; RESP 17; TEMP 36.4; O2SAT 98
--- NOTE | 2025-01-11 10:05 | ECG_ITS ---
Test Date: 2025-01-11 10:53:47 Measurements Intervals Mcgill Rate: 79 P: 0 MN: 0 QRS: 69 QRSD: 114 T: -61 QT: 392 QTc: 449 Interpretive Statements ATRIAL FIBRILLATION ST DEVIATION AND MODERATE T-WAVE ABNORMALITY, CONSIDER ANTEROLATERAL ISCHEMIA [-0.1+ mV T-WAVE IN V3-V6] Compared to ECG 01/08/2025 10:10:40 T-wave abnormality still present Possible ischemia still present Electronically Signed On 01-12-2025 15:49:57 CDT by Terry Knott M.D.
--- NOTE | 2025-01-11 10:25 | ED_ITS ---
HPI - Fall General Chief Complaint: Fall Stated Complaint: fall Time Seen by Provider: 01/11/25 10:04 Source: patient Mode of arrival: EMS Limitations: no limitations History of Present Illness HPI Narrative: This is an 89-year-old male that presents to the emergency department after a fall last night at home. Reports he was recently admitted to the hospital, found to have metastatic cancer. He is seeking hospice for this. He was discharged home last night. He sustained a fall last night around 9:00 p.m.. He laid on the floor all night as he was not able to get up. 911 was called this morning and he was brought here for further evaluation. Related Data Home Medications ?Medication ?Instructions ?Recorded ?Confirmed ?Last Taken ?Type ascorbate calcium (vitamin C) 500 500 mg PO DAILY 07/27/19 01/11/25 01/10/25 History mg tablet cyanocobalamin (vitamin B-12) 500 500 mcg PO DAILY 07/27/19 01/11/25 01/10/25 History mcg lozenges multivitamin 1 tablet PO DAILY 07/27/19 01/11/25 01/10/25 History Allergies Allergy/AdvReac Type Severity Reaction Status Date / Time pantoprazole Allergy Mild Rash Verified 01/11/25 17:18 cephalexin Allergy Unknown rash Verified 01/11/25 17:18 Penicillins Allergy Unknown When he Verified 01/11/25 17:18 was younger. 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 Chronic anticoagulation Coumadin Atrial fibrillation Erosive esophagitis With acute GI bleed August 2020 Gastric peptic ulcer AK (actinic keratosis) 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 (~2010) Essential hypertension Morbid obesity ALLEN (obstructive sleep apnea) Intolerant to CPAP Pyogenic granuloma Smoking Ulcerative colitis without complications Surgical History Surgical History (Updated 01/08/25 @ 20:52 by Kamala Reilly DO) History of repair of right rotator cuff History of right hip replacement (2012) History of excision of lesion excision metastatic Ruskin cell cancer right axilla on 01/09/21 History of surgery on arm History of esophagogastroduodenoscopy (EGD) 2020 due to acute GI bleed H/O colonoscopy with polypectomy Family History Family History Mother Family history of lung cancer Family history of malignant neoplasm of breast in first degree relative Father Family history of throat cancer Other Family history of arthritis Family history of malignant neoplasm Hypertension Social History Social History (Updated 01/08/25 @ 20:56 by Kamala Reilly DO) Social History: The patient lives alone. His August 2023. 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 He smoked up to 1 pack of cigarettes per day from the time he is a young man up until age 87 The patient states he stopped smoking about 2 years ago. He continues to uses nicotine candy. He doesn't use any alcohol, marijuana or illicit drugs. Code status: DNR/DNI per patient request His surrogate decision maker: Son and daughter Smoking packs per day: 1 Smoking cigarettes per day: 20.0 Years smoked: 50 Smoking pack-years: 50.00 Smoking status: Former smoker Second hand tobacco smoke exposure: No Alcohol intake: never Substance use: never Substance use type: does not use Do You Feel Safe in your Home?: Yes Lack of Transportation: No Lack of Food: Never True Current Housing: I Have Housing Concerned About Future Housing: No Difficulty Paying Gas/Electric Bills: No Difficulty Paying for Meds: No Currently Unemployed: No Education: Decline to Answer Difficulty w/ Childcare or Family Care: Decline to Answer Living arrangements: with family Occupation/Education: retired Gender identity (if verbalized by the patient): Male Sexual Orientation (if Verbalized by the Patient): Straight or Heterosexual Spiritual care concerns: No Exam 2 Narrative: GENERAL: Elderly, well-nourished, and in no acute distress. HEAD: Normocephalic, atraumatic. EYES: PERRLA and EOMI. ENT: Nares clear, no rhinorrhea or epistaxis. Mucous membranes dry. Oropharynx without tonsillar hypertrophy exudate or other lesions. Bilateral TMs pearly escobar non-bulging NECK: Supple. No adenopathy or masses. CHEST: Clear to auscultation. No respiratory distress. No wheezes rales or rhonchi HEART: Regular rate and rhythm. No murmur heard. Normal peripheral pulses. ABDOMEN: Soft, nontender, nondistended, normal active bowel sounds. EXTREMITIES: Normal range of motion, except decreased active ROM in the right hip. No edema. Normal DP pulses SKIN: Warm, dry, no rash. NEURO: No focal deficits. Alert and oriented x3. CN II-XII grossly intact PSYCH: Normal mood and affect Course Course Emergency Course: Patient family updated on his workup and recommendation for admission. Consultations Consultation #1: Spoke with hospitalist about patient and workup who accepts admission Date: 01/11/25 Vital Signs Vital signs: Vital Signs Temperature 97.6 F 01/11/25 09:55 Pulse Rate 78 01/11/25 09:55 Respiratory Rate 17 01/11/25 09:55 Blood Pressure 114/63 01/11/25 09:55 Pulse Oximetry 98 01/11/25 09:55 Oxygen Delivery Room Air 01/11/25 09:55 Temperature 97.6 F 01/11/25 09:55 Pulse Rate 64 01/11/25 15:27 Respiratory Rate 16 01/11/25 15:27 Blood Pressure 136/80 01/11/25 15:27 Pulse Oximetry 97 01/11/25 15:27 Oxygen Delivery Room Air 01/11/25 09:55 MDM - Fall MDM Narrative Medical decision making narrative: Patient presents to the ER after a fall last night. Recently discharged from our facility. Known history of metastatic cancer. Was supposed to have a hospice nurse come out today to sign his paperwork as he is not going to receive any care for this. He fell last night, was not able to get up all night and laid on the floor. EMS was finally called this morning. His vitals are stable. Cbc without leukocytosis. Metabolic panel with evidence of acute kidney injury, hyperkalemia. Patient hydrated with IV fluids, given calcium, insulin, glucose, sodium bicarb. Urine without evidence of infection. CT brain and cervical spine without acute findings. Chest x-ray without acute cardiopulmonary abnormality. Patient endorsing some right hip discomfort. Right hip x-ray shows hardware intact, no acute findings. Patient family updated on his workup and recommendation for admission. Spoke with hospitalist about patient and workup who accepts admission Differential Diagnosis Differential diagnosis: Likely concussion without loss of consciousness and other (hip fracture, pelvic fracture) Lab Data Attestation: I reviewed the patient's lab results. 01/11/25 10:22 01/11/25 10:22 Labs: Lab Results 01/11/25 01/11/25 01/11/25 Range/Units 10:22 11:58 12:45 WBC 5.3 (4.5-10.0) K/mm3 RBC 4.07 L (4.6-6.20) M/mm3 Hgb 11.0 L (14.0-18.0) g/dL Hct 33.8 L (42.0-52.0) % MCV 83.0 (80-100) fl MCH 27.0 (26-34) pg MCHC 32.5 (32-36) g/dl RDW 14.8 H (11.5-14.5) % Plt Count 118 L (150-375) k/mm3 MPV 9.3 (7.4-10.4) fl Immature Gran % (Auto) 0.4 (0-0.5) % Neut % (Auto) 63.8 (45.5-73.1) % Lymph % (Auto) 17.0 L (18.3-44.2) % Rogers % (Auto) 15.0 H (2.6-8.5) % Eos % (Auto) 2.7 (0-4.4) % Baso % (Auto) 1.1 (0.2-1.2) % Lymph # (Auto) 0.90 (0.9-3.2) K/mm3 Rogers # (Auto) 0.8 H (0.1-0.6) K/mm3 Eos # (Auto) 0.1 (0-0.3) K/mm3 Baso # (Auto) 0.1 (0.0-0.1) K/mm3 Abs Immat Gran (auto) 0.02 (0.00-0.031) K/mm3 Absolute Neuts (auto) 3.4 (1.3-6.7) K/mm3 Absolute Nucleated RBC 0.000 (0.0-0.012) K/mm3 Nucleated RBC % 0.0 (0.0-0.2) % Sodium 128 L (137-145) mmol/L Potassium 5.5 H (3.4-5.0) mmol/L Chloride 102 (98-107) mmol/L Carbon Dioxide 17 L (22-30) mmol/L Anion Gap 9 (4-12) mmol/L BUN 43 H D (9-20) mg/dL Creatinine 3.17 H (0.7-1.3) mg/dL Estim Creat Clear Calc 16 ml/min Estimated GFR 19 L (59 - ) Glucose 88 (65-110) mg/dL POC Capillary Glucose 73 109 H (65-105) mg/dl Calcium 8.4 (8.4-10.2) mg/dL Total Bilirubin 0.8 (0.2-1.3) mg/dL AST 59 (17-59) U/L ALT 14 (6-50) U/L Alkaline Phosphatase 78 (38-126) U/L Total Creatine Kinase 747 H (55-170) U/L Total Protein 8.1 (6.3-8.2) g/dL Albumin 3.4 L (3.5-5.1) g/dL 01/11/25 Range/Units 13:32 WBC (4.5-10.0) K/mm3 RBC (4.6-6.20) M/mm3 Hgb (14.0-18.0) g/dL Hct (42.0-52.0) % MCV (80-100) fl MCH (26-34) pg MCHC (32-36) g/dl RDW (11.5-14.5) % Plt Count (150-375) k/mm3 MPV (7.4-10.4) fl Immature Gran % (Auto) (0-0.5) % Neut % (Auto) (45.5-73.1) % Lymph % (Auto) (18.3-44.2) % Rogers % (Auto) (2.6-8.5) % Eos % (Auto) (0-4.4) % Baso % (Auto) (0.2-1.2) % Lymph # (Auto) (0.9-3.2) K/mm3 Rogers # (Auto) (0.1-0.6) K/mm3 Eos # (Auto) (0-0.3) K/mm3 Baso # (Auto) (0.0-0.1) K/mm3 Abs Immat Gran (auto) (0.00-0.031) K/mm3 Absolute Neuts (auto) (1.3-6.7) K/mm3 Absolute Nucleated RBC (0.0-0.012) K/mm3 Nucleated RBC % (0.0-0.2) % Sodium (137-145) mmol/L Potassium (3.4-5.0) mmol/L Chloride (98-107) mmol/L Carbon Dioxide (22-30) mmol/L Anion Gap (4-12) mmol/L BUN (9-20) mg/dL Creatinine (0.7-1.3) mg/dL Estim Creat Clear Calc ml/min Estimated GFR (59 - ) Glucose (65-110) mg/dL POC Capillary Glucose 80 (65-105) mg/dl Calcium (8.4-10.2) mg/dL Total Bilirubin (0.2-1.3) mg/dL AST (17-59) U/L ALT (6-50) U/L Alkaline Phosphatase (38-126) U/L Total Creatine Kinase (55-170) U/L Total Protein (6.3-8.2) g/dL Albumin (3.5-5.1) g/dL Imaging Data Radiologist's impression: ITS Impressions Cervical Spine CT 01/11/25 10:46 IMPRESSION: 1. No evidence for acute intracranial hemorrhage or calvarial fracture. 2. No evidence for cervical spine fracture or traumatic subluxation. 3. Multilevel degenerative changes of the cervical spine. Head CT 01/11/25 10:46 IMPRESSION: 1. No evidence for acute intracranial hemorrhage or calvarial fracture. 2. No evidence for cervical spine fracture or traumatic subluxation. 3. Multilevel degenerative changes of the cervical spine. Chest X-Ray 01/11/25 10:53 Impression: 1: No acute cardiopulmonary disease. EXAM/ PROCEDURE: XR hip RT 2V w AP pelvis - 01/11/2025 10:35 CDT HISTORY: 89 years old Male with fall, right hip pain COMPARISON: None available TECHNIQUE: Three view(s) FINDINGS/ IMPRESSION: Status post right hip arthroplasty with intact hardware. No loosening. There are no fractures or dislocations.Joint space narrowing, subchondral sclerosis, subchondral cyst formation and osteophyte formation, compatible with moderate osteoarthritis. ECG Data EKG #1: ECG completion date: 01/11/25 EKG Interpretation: normal rate, atrial fibrillation, normal QT and no acute changes (compared to EKG 01/08/25) Critical Care Time Critical Care Time Critical Care Time: Yes Total Critical Care Time: 35 Discharge Plan Discharge Clinical Impression: Acute kidney injury, Hyperkalemia Patient Disposition: Still a Patient Condition: Serious
[2025-01-11 10:27] LABS: Hematocrit 33.8 % (42.0-52.0); Hemoglobin 11.0 g/dL (14.0-18.0); Immature Granulocyte Percent A 0.4 % (0-0.5); Lymphocytes Absolute Auto 0.90 K/mm3 (0.9-3.2); Mean Corpuscular HGB Conc 32.5 g/dl (32-36); Mean Corpuscular Hemoglobin 27.0 pg (26-34); Mean Corpuscular Volume 83.0 fl (80-100); Nucleated Red Blood Cells Absolute Auto 0.000 K/mm3 (0.0-0.012); Nucleated Red Blood Cells Perc 0.0 % (0.0-0.2); Platelet Count Result 118 k/mm3 (150-375); Red Blood Count 4.07 M/mm3 (4.6-6.20); White Blood Count 5.3 K/mm3 (4.5-10.0)
[2025-01-11 10:53] LABS: Alanine Aminotransferase 14 U/L (6-50); Albumin Level 3.4 g/dL (3.5-5.1); Alkaline Phosphatase 78 U/L (38-126); Anion Gap 9 mmol/L (4-12); Aspartate Amino Transferase 59 U/L (17-59); Bilirubin,Total 0.8 mg/dL (0.2-1.3); Blood Urea Nitrogen 43 mg/dL (9-20); Calcium 8.4 mg/dL (8.4-10.2); Carbon Dioxide 17 mmol/L (22-30); Chloride 102 mmol/L (98-107); Creatine Kinase 747 U/L (55-170); Estimated CRCL calculation 16 ml/min; Estimated Glomerular Filt Rate 19; Glucose 88 mg/dL (65-110); Potassium 5.5 mmol/L (3.4-5.0); Sodium 128 mmol/L (137-145); Total Protein 8.1 g/dL (6.3-8.2)
--- OUTSIDE RECORDS SUMMARY | 2025-01-11 11:31 | XMS_ITS | Clinical Summary ---
Author Organization [facility] Address [address] [place] [address] Care Team Providers Care Shopper Name Role Phone David Redman MD Primary Care Provider [phone] Allergies Active Allergy Reactions Criticality Noted Date [...] (diabetes mellitus) 10/14/2017 Other specified hypothyroidism 10/14/2017 [place] cell tumor 10/14/2017 Encounters Date Type Department [...] 2022 Insurance MEDICARE PART A AND B [facility] SUPP RX [employer] Medicare Part B Care Teams Shopper Relationship Specialty Start Date End Date David Redman MD [address] [facility] [address] [place] [address] PCP - General Plastic Surgery 06/30/18
--- NOTE | 2025-01-11 11:45 | PC.NURSE ---
Pt unable to give urine sample at this time.
[2025-01-11] MEDS: ACETAMINOPHEN 500 MG TABLET 1000 MG PO (11:52)
[2025-01-11] MEDS: CALCIUM GLUC 1,000 MG/NS 50 ML 1,000 MG/50 ML BAG 100 MG IVPB (11:54)
[2025-01-11] MEDS: SODIUM BICARBONATE 8.4% 50 MEQ/50 ML SYRINGE IV PUSH (12:00)
[2025-01-11] MEDS: DEXTROSE 50% 25 GM/50 ML SYRINGE IV PUSH (12:00)
[2025-01-11] MEDS: SODIUM CHLORIDE 0.9% IV 1,000 ML 999 ML IV CONT ×3 (12:01→23:28)
[2025-01-11] MEDS: INSULIN HUMAN REGULAR (*BKC) 100 UNITS/ML 10 UNITS IV PUSH (12:03)
--- NOTE | 2025-01-11 12:07 | PC.NURSE ---
Pt POC glucose 73 at this time. Verified with EDP, Ally Henry that she would still like 10 units Insulin given per order. No order change at this time.
[2025-01-11 13:47] VITALS: PULSE 65; RESP 18; O2SAT 97
--- NOTE | 2025-01-11 14:17 | P.HP_ITS ---
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 Patient states that he fell last night laid on the ground until someone came over and helped him. Patient was admitted to the hospital from 01/08/2005 to 01/10/2005 for generalized weakness and decreased appetite. After discharge the plan was to seek hospice care he was going to meet with the nurse today however he presented back to the hospital. Patient states that he knows he has less than 6 months to live however at this current time he still wants to take his medications. Patient denies nausea vomiting fever chills. Lab work in the ED shows hemoglobin of 11.0, sodium of 128, potassium of 5.5, carbon dioxide 17, BUN of 43, creatinine of 3.17 with baseline being around 1.5, GFR 19. CT spine no acute process. CT head no acute process. Chest x-ray with no acute process. Hip and pelvis x-ray with no acute process. Review of Systems Review of Systems: 12 systems were reviewed and are negativ e except for as per HPI. 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 Chronic anticoagulation Coumadin Atrial fibrillation Erosive esophagitis With acute GI bleed August 2020 Gastric peptic ulcer AK (actinic keratosis) 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 (~2010) Essential hypertension Morbid obesity ALLEN (obstructive sleep apnea) Intolerant to CPAP Pyogenic granuloma Smoking Ulcerative colitis without complications Surgical History Surgical History (Updated 01/08/25 @ 20:52 by Kamala Reilly DO) History of repair of right rotator cuff History of right hip replacement (2012) History of excision of lesion excision metastatic Crestline cell cancer right axilla on 01/09/21 History of surgery on arm History of esophagogastroduodenoscopy (EGD) 2020 due to acute GI bleed H/O colonoscopy with polypectomy Family History Family History Mother Family history of lung cancer Family history of malignant neoplasm of breast in first degree relative Father Family history of throat cancer Other Family history of arthritis Family history of malignant neoplasm Hypertension Social History Social History (Updated 01/08/25 @ 20:56 by Kamala Reilly DO) Social History: The patient lives alone. His August 2023. 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 He smoked up to 1 pack of cigarettes per day from the time he is a young man up until age 87 The patient states he stopped smoking about 2 years ago. He continues to uses nicotine candy. He doesn't use any alcohol, marijuana or illicit drugs. Code status: DNR/DNI per patient request His surrogate decision maker: Son and daughter Smoking packs per day: 1 Smoking cigarettes per day: 20.0 Years smoked: 50 Smoking pack-years: 50.00 Smoking status: Former smoker Second hand tobacco smoke exposure: No Alcohol intake: never Substance use: never Substance use type: does not use Do You Feel Safe in your Home?: Yes Lack of Transportation: No Lack of Food: Never True Current Housing: I Have Housing Concerned About Future Housing: No Difficulty Paying Gas/Electric Bills: No Difficulty Paying for Meds: No Currently Unemployed: No Education: Decline to Answer Difficulty w/ Childcare or Family Care: Decline to Answer Living arrangements: with family Occupation/Education: retired Gender identity (if verbalized by the patient): Male Sexual Orientation (if Verbalized by the Patient): Straight or Heterosexual Spiritual care concerns: No Meds Home Medications and Allergies Home Medications ?Medication ?Instructions ?Recorded ?Confirmed ?Type ascorbate calcium (vitamin C) 500 500 mg PO DAILY 07/27/19 01/11/25 History mg tablet cyanocobalamin (vitamin B-12) 500 500 mcg PO DAILY 07/27/19 01/11/25 History mcg lozenges multivitamin 1 tablet PO DAILY 07/27/19 01/11/25 History sulfasalazine 500 mg 1.5 g (3 x 500 mg) PO BID #180 tabs 02/15/24 01/11/25 Rx tablet,delayed release losartan 50 mg tablet See Rx Instructions .Route 08/15/24 01/11/25 Rx .COMPLEX #90 tabs warfarin 2.5 mg tablet 2.5 mg PO DAILY #30 tabs 10/20/24 01/11/25 Rx pravastatin 10 mg tablet See Rx Instructions .Route 10/30/24 01/11/25 Rx .COMPLEX #90 tabs metformin 500 mg tablet 500 mg PO BID #180 tabs 10/31/24 01/11/25 Rx levothyroxine 112 mcg tablet See Rx Instructions .Route 11/10/24 01/11/25 Rx .COMPLEX #90 tabs warfarin 3 mg tablet 3 mg PO DAILY #30 tabs 01/05/25 01/11/25 Rx loperamide 2 mg capsule 2 mg PO PRN PRN Diarrhea #15 caps 01/10/25 01/11/25 Rx Allergies Allergy/AdvReac Type Severity Reaction Status Date / Time pantoprazole Allergy Mild Rash Verified 01/11/25 17:18 cephalexin Allergy Unknown rash Verified 01/11/25 17:18 Penicillins Allergy Unknown When he Verified 01/11/25 17:18 was younger. Vital Signs Vital Signs - 24 hr 01/11/25 09:55 01/11/25 13:47 Temperature 97.6 F Pulse Rate 78 65 Respiratory Rate 17 18 Blood Pressure 114/63 Pulse Oximetry 98 97 Oxygen Delivery Room Air Exam Narrative: General: Chronically ill no acute distress HEENT: normocephalic, atraumatic. Mucous membranes moist. EOMI, PERRLA, bilateral sclera anicteric, no conjunctival injection. Neck supple without JVD, lymphadenopathy, or bruit. Respiratory: clear to ascultation bilaterally. No rales/rhonic/wheezes. Cardiovascular: Regular rate and rhythm, normal S1-S2 upon ascultation. No murmurs, rubs, or clicks. PMI is nondisplaced, capillary refill less than 3 second. Abdomen: Soft, round, no pulsatile masses, nondistended and nontender. No rebound, no guarding. No CVA tenderness, no hepatosplenomegaly. Bowel sounds present to all four quadrants. No high pitch or tinkling sounds, resonant to percussion. Extremities: No cyanosis, clubbing, or edema present. Pulses are palpable 2/2. Active ROM to all four extremities. Neuro: Alert and orientated x 4. PERRLA. Cranial nerves 2-12 intact without focal deficit. Skin: Warm, dry, and intact, without rash, erythema, or lesion. Psych: pleasant, cooperative, normal speech, normal affect, no hallucinations, no dysarthia H&P: Results Labs Labs: Short CBC 01/11/25 Range/Units 10:22 WBC 5.3 (4.5-10.0) K/mm3 Hgb 11.0 L (14.0-18.0) g/dL Hct 33.8 L (42.0-52.0) % Plt Count 118 L (150-375) k/mm3 BMP 01/11/25 10:22 Sodium 128 L Potassium 5.5 H Chloride 102 Carbon Dioxide 17 L BUN 43 H D Creatinine 3.17 H Glucose 88 Calcium 8.4 Cardiac Enzymes 01/11/25 Range/Units 10:22 Total Creatine Kinase 747 H (55-170) U/L Liver Function 01/11/25 Range/Units 10:22 Total Bilirubin 0.8 (0.2-1.3) mg/dL AST 59 (17-59) U/L ALT 14 (6-50) U/L Alkaline Phosphatase 78 (38-126) U/L Albumin 3.4 L (3.5-5.1) g/dL Assessment and Plan Assessment and plan (1) Fall: Code(s): W19.XXXA - Unspecified fall, initial encounter Status: Acute Assessment and Plan: CT head and neck negative for acute injuries X-ray hip and pelvis negative for acute injuries Chest x-ray negative for acute process Patient will likely need placement however he is also considering hospice, patient will need PT OT if he does not go to hospice (2) 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 Telemetry monitoring (4) Rhabdomyolysis: Code(s): M62.82 - Rhabdomyolysis Status: Acute Assessment and Plan: Repeat CK in morning Fluid bolus in IVF (5) YULIET (acute kidney injury): Code(s): N17.9 - Acute kidney failure, unspecified Status: Acute Assessment and Plan: IVF BMP in the morning Avoid nephrotoxic medications (6) Chronic hyponatremia: Code(s): E87.1 - Hypo-osmolality and hyponatremia Status: Acute Assessment and Plan: At baseline (7) Hypothyroidism: Qualifiers: Hypothyroidism type: acquired Qualified Code(s): E03.9 - Hypothyroidism, unspecified Code(s): E03.9 - Hypothyroidism, unspecified Status: Acute Assessment and Plan: Continue levothyroxine (8) Type 2 diabetes mellitus without complication: Qualifiers: 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 HS SSI (9) Essential hypertension: Code(s): I10 - Essential (primary) hypertension Status: Acute Assessment and Plan: Hold antihypertensives due to hypotension and dehydration (10) Chronic anticoagulation: Code(s): Z79.01 - intermediate (current) use of anticoagulants Status: Acute Assessment and Plan: INR 2 Continue warfarin 2.5 Quality VTE Prophylaxis VTE prophylaxis: mechanical ordered and pharmacologic ordered Hospitalist MIPS Advance Care Plan I have confirmed that the patient's Advanced Care Plan is present, code status is documented, or surrogate decision maker is listed in patient medical record.: Yes Medication Reconciliation I have utilized all available resources to obtain, update and review the patients current medications (includes all prescriptions, OTC, herbals, cannabis, and nutritional supplements).: Yes
[2025-01-11 15:14] LABS: Add Urine Microscopic? YES; Appearance Urine Cloudy (Clear); Glucose Urine UA Negative (Negative); Leukocyte Esterase Ur Negative LEU/UL (Negative); Need Manual Microscopic Reviewed; Nitrate Urine Negative (Negative); Specific Grav Ur 1.021 (1.001-1.035)
[2025-01-11] MEDS: ZINC OXIDE 20% OINT 30 GM TUBE 1 APPLIC TOPICAL (15:16)
[2025-01-11 15:27] VITALS: BP 136/80; PULSE 64; RESP 16; O2SAT 97
[2025-01-11 16:59] VITALS: BMI 27.8
--- NOTE | 2025-01-11 17:12 | ADMGEN ---
This patient, Kole Méndez, was admitted to 3 [facility] Surg Room 322-01. Patient/family oriented to hospital policies and general routines including ID bracelet, bed and alarms, visiting hours, pain management, procedures, bathroom and other care routines, personal items, smoking policy, room service/diet, and visiting hours. Information on how to activate the Rapid Response Team has been discussed. Patient/Family are encouraged to report perceived risks to care and to ask questions if they do not understand what they are told or what they should do.
[2025-01-11 19:52] VITALS: BP 97/55; PULSE 80; RESP 16; TEMP 37.4; O2SAT 90
[2025-01-11] MEDS: SODIUM CHLORIDE 0.9% IV 1,000 ML 75 ML IV CONT (19:59)
[2025-01-11 20:00] VITALS: PULSE 74
[2025-01-11 20:02] LABS: INR 2.0; Prothrombin Time 22.5 Seconds (11.1-14.7)
[2025-01-11 20:03] LABS: Anion Gap 9 mmol/L (4-12); Blood Urea Nitrogen 44 mg/dL (9-20); Calcium 8.0 mg/dL (8.4-10.2); Carbon Dioxide 18 mmol/L (22-30); Chloride 102 mmol/L (98-107); Estimated CRCL calculation 16 ml/min; Estimated Glomerular Filt Rate 18; Glucose 108 mg/dL (65-110); Partial Thromboplastin Time 43.3 Seconds (22.3-36.8); Potassium 4.9 mmol/L (3.4-5.0); Sodium 129 mmol/L (137-145)
[2025-01-11] MEDS: PRAVASTATIN SODIUM 10 MG TABLET BY MOUTH (20:39)
[2025-01-11] MEDS: HYDROcodone/acetaminophen (*CRX) 5-325 MG TABLET 1 TAB PO (20:39)
[2025-01-11] MEDS: MELATONIN 5 MG TABLET PO (21:03)
[2025-01-12 03:00] VITALS: PULSE 65
[2025-01-12 04:00] VITALS: PULSE 59
[2025-01-12 04:58] VITALS: BP 100/62; PULSE 61; RESP 16; TEMP 36.6; O2SAT 100
[2025-01-12] MEDS: LEVOTHYROXINE SODIUM 112 MCG TABLET BY MOUTH (05:22)
[2025-01-12 06:46] LABS: Hematocrit 33.6 % (42.0-52.0); Hemoglobin 10.1 g/dL (14.0-18.0); Immature Granulocyte Percent A 0.5 % (0-0.5); Immature Platelet Fraction Pct 1.5 % (0.9-11.2); Lymphocytes Absolute Auto 0.59 K/mm3 (0.9-3.2); Mean Corpuscular HGB Conc 30.1 g/dl (32-36); Mean Corpuscular Hemoglobin 27.0 pg (26-34); Mean Corpuscular Volume 89.8 fl (80-100); Nucleated Red Blood Cells Absolute Auto 0.000 K/mm3 (0.0-0.012); Nucleated Red Blood Cells Perc 0.0 % (0.0-0.2); Platelet Count Result 117 k/mm3 (150-375); Red Blood Count 3.74 M/mm3 (4.6-6.20); White Blood Count 3.6 K/mm3 (4.5-10.0)
[2025-01-12 07:18] LABS: Alanine Aminotransferase 13 U/L (6-50); Albumin Level 2.8 g/dL (3.5-5.1); Alkaline Phosphatase 72 U/L (38-126); Anion Gap 8 mmol/L (4-12); Aspartate Amino Transferase 61 U/L (17-59); Bilirubin,Total 0.5 mg/dL (0.2-1.3); Blood Urea Nitrogen 43 mg/dL (9-20); Calcium 7.8 mg/dL (8.4-10.2); Carbon Dioxide 15 mmol/L (22-30); Chloride 106 mmol/L (98-107); Estimated CRCL calculation 16 ml/min; Estimated Glomerular Filt Rate 18; Glucose 79 mg/dL (65-110); Potassium 5.0 mmol/L (3.4-5.0); Sodium 129 mmol/L (137-145); Total Protein 6.9 g/dL (6.3-8.2)
[2025-01-12] MEDS: LORazepam INJ (*CRX) 2 MG/ML VIAL 1 MG IV PUSH ×2 (11:10→21:54)
--- NOTE | 2025-01-12 13:48 | P.PNIM_ITS ---
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 Telemetry monitoring (4) Rhabdomyolysis: Code(s): M62.82 - Rhabdomyolysis Status: Acute Assessment and Plan: Repeat CK in morning Fluid bolus in IVF (5) YULIET (acute kidney injury): Code(s): N17.9 - Acute kidney failure, unspecified Status: Acute Assessment and Plan: IVF BMP in the morning Avoid nephrotoxic medications (6) Chronic hyponatremia: Code(s): E87.1 - Hypo-osmolality and hyponatremia Status: Acute Assessment and Plan: At baseline (7) Hypothyroidism: Qualifiers: Hypothyroidism type: acquired Qualified Code(s): E03.9 - Hypothyro idism, unspecified Code(s): E03.9 - Hypothyroidism, unspecified Status: Acute Assessment and Plan: Continue levothyroxine (8) Type 2 diabetes mellitus without complication: Qualifiers: Diabetes mellitus chcf insulin use: 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 Qualified Code(s): E11.9 - Type 2 diabetes mellitus without complications Code(s): E11.9 - Type 2 diabetes mellitus without complications Status: Acute Assessment and Plan: Hold home metformin Accu-Belleks a.cTirso HS SSI (9) Essential hypertension: Code(s): I10 - Essential (primary) hypertension Status: Acute Assessment and Plan: Hold antihypertensives due to hypotension and dehydration (10) Chronic anticoagulation: Code(s): Z79.01 - 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 Exam Narrative: General: Chronically ill no acute distress HEENT: normocephalic, atraumatic. Mucous membranes moist. EOMI, PERRLA, bilateral sclera anicteric, no conjunctival injection. Neck supple without JVD, lymphadenopathy, or bruit. Respiratory: clear to ascultation bilaterally. No rales/rhonic/wheezes. Cardiovascular: Regular rate and rhythm, normal S1-S2 upon ascultation. No murmurs, rubs, or clicks. PMI is nondisplaced, capillary refill less than 3 second. Abdomen: Soft, round, no pulsatile masses, nondistended and nontender. No rebound, no guarding. No CVA tenderness, no hepatosplenomegaly. Bowel sounds present to all four quadrants. No high pitch or tinkling sounds, resonant to percussion. Extremities: No cyanosis, clubbing, or edema present. Pulses are palpable 2/2. Active ROM to all four extremities. Neuro: Alert and orientated x 4. PERRLA. Cranial nerves 2-12 intact without focal deficit. Skin: Warm, dry, and intact, without rash, erythema, or lesion. Psych: pleasant, cooperative, normal speech, normal affect, no hallucinations, no dysarthia Objective Data Vital Signs Vital Signs: Vital Signs - 24 hr 01/11/25 15:27 01/11/25 19:52 01/11/25 20:00 Temperature 99.3 F Pulse Rate 64 80 Respiratory Rate 16 16 Blood Pressure 136/80 97/55 L Pulse Oximetry 97 90 Oxygen Delivery Room Air 01/11/25 20:00 01/12/25 03:00 01/12/25 04:00 Temperature Pulse Rate 74 65 59 L Respiratory Rate Blood Pressure Pulse Oximetry Oxygen Delivery 01/12/25 04:58 Temperature 97.8 F Pulse Rate 61 Respiratory Rate 16 Blood Pressure 100/62 Pulse Oximetry 100 Oxygen Delivery Intake/Output Intake/Output: Intake & Output 01/09/25 01/10/25 01/11/25 01/12/25 23:59 23:59 23:59 23:59 Intake Total 2290 360 Balance 2290 360 Meds/Results Medications: Active Medications Generic Name Dose Route Start Last Admin Trade Name Freq PRN Reason Stop Dose Admin Lorazepam 1 mg 01/12/25 10:57 01/12/25 11:10 Lorazepam Inj (*Crx) 2 Mg/Ml Vial IV PUSH 1 mg Q2HR PRN Administration Anxiety/restlessness Morphine Sulfate 2 mg 01/12/25 10:57 Morphine Sulfate (*Crx) 2 Mg/Ml Inj IV PUSH Q2HR PRN pain/shortness of breath Radiology Results: ITS Impressions Cervical Spine CT 01/11/25 10:46 IMPRESSION: 1. No evidence for acute intracranial hemorrhage or calvarial fracture. 2. No evidence for cervical spine fracture or traumatic subluxation. 3. Multilevel degenerative changes of the cervical spine. Head CT 01/11/25 10:46 IMPRESSION: 1. No evidence for acute intracranial hemorrhage or calvarial fracture. 2. No evidence for cervical spine fracture or traumatic subluxation. 3. Multilevel degenerative changes of the cervical spine. Chest X-Ray 01/11/25 10:53 Impression: 1: No acute cardiopulmonary disease. Labs Labs: Laboratory Results - last 24 hr 01/11/25 01/11/25 01/11/25 15:00 19:44 19:57 WBC RBC Hgb Hct MCV MCH MCHC RDW Plt Count MPV Immature Gran % (Auto) Neut % (Auto) Lymph % (Auto) Hitchcock % (Auto) Eos % (Auto) Baso % (Auto) Lymph # (Auto) Hitchcock # (Auto) Eos # (Auto) Baso # (Auto) Abs Immat Gran (auto) Absolute Neuts (auto) Absolute Nucleated RBC Nucleated RBC % % Immature Plt Fraction PT 22.5 H INR 2.0 APTT 43.3 H Sodium 129 L Potassium 4.9 Chloride 102 Carbon Dioxide 18 L Anion Gap 9 BUN 44 H Creatinine 3.28 H Estim Creat Clear Calc 16 Estimated GFR 18 L Glucose 108 POC Capillary Glucose 100 Calcium 8.0 L Total Bilirubin AST ALT Alkaline Phosphatase Total Protein Albumin Urine Color Yellow Urine Appearance Cloudy H Urine pH 5.0 Ur Specific Farson 1.021 Urine Protein 2+ H Urine Glucose (UA) Negative Urine Ketones Trace H Ur Blood (Man) 1+ H Urine Nitrate Negative Urine Bilirubin Negative Urine Urobilinogen 0.2 Add Ur Microanalysis Reviewed Leukocyte Esterase Rfl Negative Urine RBC 0-2 Urine WBC 0-5 Ur Squamous Epith Cells Few Urine Bacteria None seen Urine Casts 6-10 Hyaline Casts Present 01/12/25 06:31 WBC 3.6 L RBC 3.74 L Hgb 10.1 L Hct 33.6 L MCV 89.8 D MCH 27.0 MCHC 30.1 L RDW 15.3 H Plt Count 117 L MPV 9.9 Immature Gran % (Auto) 0.5 Neut % (Auto) 60.6 Lymph % (Auto) 16.2 L Hitchcock % (Auto) 14.8 H Eos % (Auto) 7.1 H Baso % (Auto) 0.8 Lymph # (Auto) 0.59 L Hitchcock # (Auto) 0.5 Eos # (Auto) 0.3 Baso # (Auto) 0.0 Abs Immat Gran (auto) 0.02 Absolute Neuts (auto) 2.2 Absolute Nucleated RBC 0.000 Nucleated RBC % 0.0 % Immature Plt Fraction 1.5 PT INR APTT Sodium 129 L Potassium 5.0 Chloride 106 Carbon Dioxide 15 L Anion Gap 8 BUN 43 H Creatinine 3.21 H Estim Creat Clear Calc 16 Estimated GFR 18 L Glucose 79 POC Capillary Glucose Calcium 7.8 L Total Bilirubin 0.5 AST 61 H ALT 13 Alkaline Phosphatase 72 Total Protein 6.9 Albumin 2.8 L Urine Color Urine Appearance Urine pH Ur Specific Farson Urine Protein Urine Glucose (UA) Urine Ketones Ur Blood (Man) Urine Nitrate Urine Bilirubin Urine Urobilinogen Add Ur Microanalysis Leukocyte Esterase Rfl Urine RBC Urine WBC Ur Squamous Epith Cells Urine Bacteria Urine Casts Hyaline Casts Quality VTE Prophylaxis VTE prophylaxis: mechanical ordered and pharmacologic ordered
[2025-01-12 14:00] VITALS: BP 95/54; PULSE 99; RESP 14; TEMP 36.5; O2SAT 100
[2025-01-12 14:15] VITALS: BMI 27.8
[2025-01-12] MEDS: MORPHINE SULFATE (*CRX) 2 MG/ML INJ IV PUSH ×2 (14:33→21:53)
[2025-01-12 20:00] VITALS: PULSE 70; RESP 18; O2SAT 98
[2025-01-12 22:00] VITALS: BP 98/57; PULSE 70; RESP 18; TEMP 36.2; O2SAT 98
[2025-01-13] MEDS: MORPHINE SULFATE (*CRX) 2 MG/ML INJ IV PUSH (05:26)
[2025-01-13] MEDS: LORazepam INJ (*CRX) 2 MG/ML VIAL 1 MG IV PUSH ×2 (05:27→10:18)
[2025-01-13 08:00] VITALS: BP 112/62; PULSE 54; RESP 14; TEMP 36.8; O2SAT 93
--- NOTE | 2025-01-13 12:02 | PM.DS ---
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 Patient states that he fell last night laid on the ground until someone came over and helped him. Patient was admitted to the hospital from 01/08/2005 to 01/10/2005 for generalized weakness and decreased appetite. After discharge the plan was to seek hospice care he was going to meet with the nurse today however he presented back to the hospital. Patient states that he knows he has less than 6 months to live however at this current time he still wants to take his medications. Patient denies nausea vomiting fever chills. Lab work in the ED shows hemoglobin of 11.0, sodium of 128, potassium of 5.5, carbon dioxide 17, BUN of 43, creatinine of 3.17 with baseline being around 1.5, GFR 19. CT spine no acute process. CT head no acute process. Chest x-ray with no acute process. Hip and pelvis x-ray with no acute process. patient was managed for fall, YULIET and rhabdomyolysis with IV hydration. However given history of untreated cancer, patient and family opted for hospice care and discharged today to home with hospice. Patient will continue follow up with hospice. Time Spent with Patient Time attestation: Total time spent providing and/or coordinating discharge services: Discharge Plan Discharge Attending physician on discharge: Paramjit Garcia Discharging Clinician: Paramjit Garcia Anticipated Discharge Date/Time: 01/13/25 11:54 Patient Disposition: Hospice - Home Activity: as tolerated Diet: as tolerated Patient Language: [place] Stand Alone Forms: General Discharge Information Follow-up/Referrals: Carroll Wood APRN [Primary Care Provider] - (F/u with PCP in 3-5 days) Discharge Medications: Continued multivitamin Tablet 1 tablet PO DAILY cyanocobalamin (vitamin B-12) 500 mcg lozenge 500 mcg PO DAILY ascorbate calcium (vitamin C) 500 mg tablet 500 mg PO DAILY loperamide 2 mg Capsule 2 mg PO PRN PRN (Reason: Diarrhea) Qty: 15 0RF sulfasalazine 500 mg tablet,delayed release (DR/EC) 1.5 g PO BID Qty: 180 12RF losartan 50 mg tablet See Rx Instructions .ROUTE .COMPLEX Qty: 90 2RF Dose Instruction: TAKE 1 TABLET BY MOUTH DAILY Rx Instructions: TAKE 1 TABLET BY MOUTH DAILY warfarin 2.5 mg tablet 2.5 mg PO DAILY Qty: 30 3RF pravastatin 10 mg tablet See Rx Instructions .ROUTE .COMPLEX Qty: 90 2RF Dose Instruction: TAKE 1 TABLET BY MOUTH EVERY DAY Rx Instructions: TAKE 1 TABLET BY MOUTH EVERY DAY metformin 500 mg tablet 500 mg PO BID Qty: 180 1RF levothyroxine 112 mcg tablet See Rx Instructions .ROUTE .COMPLEX Qty: 90 1RF Dose Instruction: TAKE 1 TABLET BY MOUTH EVERY DAY Rx Instructions: TAKE 1 TABLET BY MOUTH EVERY DAY warfarin 3 mg tablet 3 mg PO DAILY Qty: 30 3RF Date of admission: 01/12/25 09:53 Primary Care Provider: Carroll Wood Admitting Provider: Olivia Garcia Attending physician on admission: Olivia Garcia Condition: Serious
--- NOTE | 2025-01-15 08:34 | P.CDI_ITS ---
CDI Query Clarification Request BMI: 27.8 Nutritional Diagnostic Statement: Please refer to the comprehensive nutrition assessment for further information. If you agree with diagnosis of Moderate protein calorie malnutrition related to poor po intake for greater than 1 month, a significant weight loss of -9% x 1 month, and NFPE findings for severe subcutaneous fat loss (cheeks) and severe muscle wasting (temples, clavicle, shoulder). Please specify severity if known: * Mild * Moderate * Severe * Other/Unknown <Sandrine Acosta RN - Last Filed: 01/15/25 08:37> Clarified Diagnosis Clarified Diagnosis: * Moderate <Paramjit Garcia MD - Last Filed: 01/15/25 09:25>
== END 2025-01-13 15:00 | disposition hospice, home (50) | DRG 683 ==
LOC: ANHED 14:53 → ANH3MEDSUR 15:01
PROVIDERS: Nurse Practitioner Gerontology; Admitting Provider Family Medicine; Emergency Provider Physician Assistant; PCP Nurse Practitioner; Visit Provider Internal Medicine
DX: N17.9 Acute kidney failure, unspecified (principal); E44.0 Moderate protein-calorie malnutrition; E87.1 Hypo-osmolality and hyponatremia; M62.82 Rhabdomyolysis; W19.XXXA Unspecified fall, initial encounter; C7B.1 Secondary Merkel cell carcinoma; E87.5 Hyperkalemia; I71.20 Thoracic aortic aneurysm, without rupture, unspecified; I10 Essential (primary) hypertension; G47.33 Obstructive sleep apnea (adult) (pediatric); I48.91 Unspecified atrial fibrillation; E03.9 Hypothyroidism, unspecified; E78.2 Mixed hyperlipidemia; E11.9 Type 2 diabetes mellitus without complications; N32.81 Overactive bladder; Z96.641 Presence of right artificial hip joint; Z86.718 Personal history of other venous thrombosis and embolism; Z87.891 Personal history of nicotine dependence; Z79.01 Long term (current) use of anticoagulants; Z68.27 Body mass index [BMI] 27.0-27.9, adult
CPT/HCPCS: 36415; 70450; 71045; 72125; 73502; 80048; 80053; 81001; 82550; 82948; 85025; 85055; 85610; 85730; 93005; 96361; 96365; 96375; 99285; A9270; G0378; J0612; J1815; J2060; J2270; J7030